=== PATIENT | male | born 1950 | race Caucasian/White ===

== ENCOUNTER 2016-11-29 08:30 | Outpatient (CLI) | payer MEDICARE, BC ==
[~2016-11-29] VITALS: Ht 175.3 cm; Wt 85.9 kg
--- NOTE | ~2016-11-29 | PRO ---
PATIENT:ELDER PARKER MEDICAL RECORD: [id number] : 48 LOCATION:D.CAT ADMISSION DATE: 11/29/16 PROCEDURE PERFORMED BY: PEBBLES HILL MD PROCEDURES: 1. PTCA and stent of the LAD/diagonal. 2. Left heart catheterization. 3. Selective coronary angiography. 4. Left ventriculogram. 5. Vein graft angiography. 6. MARTINEZ angiography. INDICATIONS: Angina, coronary disease. PROCEDURE IN DETAIL: After informed consent was obtained and after detailed Explanation of risks, benefits as well as alternative therapies, the patient Elected to proceed with angiogram and angioplasty. The right femoral area was Prepped and draped in normal sterile fashion. The right femoral artery was Cannulated via modified Seldinger technique with placement of 6-Hebrew sheath. All catheters exchanged through this sheath. FINDINGS: Left ventriculogram was performed in standard 30-degree BURCH view, reveals good cardiac wall motion throughout all segments. Overall ejection fraction estimated 55-60%. Selective coronary angiography: 1. Left main showed no significant angiographic disease. 2. Left circumflex has previously placed stents, these are widely patent. No disease otherwise throughout the circumflex or its branches. 3. Left anterior descending artery has a total occlusion in the proximal vessel. However, prior to this there is a LAD/diagonal that has previously placed stents. There is 90% in-stent restenosis. 4. MARTINEZ to the LAD is widely patent. The distal LAD is widely patent. 5. The vein graft to the RCA is widely patent. Distal RCA is widely patent. PTCA STENT OF THE LAD/diagonal: The stent used is a 2.5 x 12 millimeter [place] taken to 23 atmospheres. Resulting in 0% residual stenosis. OVERALL IMPRESSION: Successful PTCA and stenting of the LAD/diagonal going from 90% in-stent restenosis to 0% residual stenosis. PEBBLES HILL MD CC: [id number] DICTATION DATE: 11/29/16 1254 AIRPLANE INSPECTOR: TC 11/30/16 1254 DEP CLI 11/29/16 [facility] [address] [id number]
--- NOTE | ~2016-11-29 | HEMODYNAMI ---
PATIENT:ELDER PARKER MEDICAL RECORD: [id number] : 48 LOCATION:DZHENG ADMISSION DATE: 11/29/16 Generatedon:11/29/201612:37 Patient name: ELDER PARKER Patient #: [id number] : 1950 Date of study: 11/29/2016 Page: Of Hemodynamic Procedure Report Patient Data Patient Demographics Procedure consent was obtained First Name: ELDER Gender: Male Last Name: ELENA : 1950 Middle Initial: A Age: 66 year(s) Patient #: [id number] Race: SSN: [id number] Additional ID: [id number] Contact details [address]: [address] [place] [address] State: [place] City: [place] Zip code: [address] Past Medical History Allergies Allergen Reaction Date Comments Reported Shellfish 10/17/2014 Other allergy 05/29/2016 Shrimp Shellfish 11/29/2016 Other allergy 11/29/2016 Lipitor Admission Admission Data Admission Date: 11/29/2016 Admission Time: 8:30 Lab Results Lab Result Date: 11/29/2016 Lab Result Time: 0:00 Biochemistry Name Units Result Min Max Creatinine mg/dl 1.1 --(--*-)-- 0.6 1.3 CBC Name Units Result Min Max Hemoglobin g/dl 15.3 --(-*--)-- 13.5 17.5 Procedure Procedure Types Cath Procedure Diagnostic Procedure LHC LHC w/Coronaries w/Grafts PCI Procedure Coronary Stent Initial Miscellaneous Procedures Moderate Sedation up to 15 minutes Procedure Description Procedure Date Procedure Date: 11/29/2016 Procedure Start Time: 12:19 Procedure End Time: 12:37 Procedure Staff Name Function Bc Hanna MD Performing Physician Casa Soni RT Scrub Russ Stephens RN Nurse Lacie Kincaid RT Monitor Procedure Data Cath Procedure Fluoroscopy Diagnostic fluoroscopy Total fluoroscopy Time: 282 time: 282 min min Diagnostic fluoroscopy Total fluoroscopy dose: 2.9 dose: 2.9 mGy mGy Contrast Material Contrast Material Type Amount (ml) Isovue 300 78 Entry Location Entry Primary Successful Side Size Upsize Upsize Entry Closure Succes sful Closure Location (Fr) 1 (Fr) 2 (Fr) Remarks Device Remarks Femoral Right 5 Fr 6 Fr Exoseal artery Short Estimated blood loss: 10 ml Diagnostic catheters Device Type Used For End Catheter Placement Cordis 5Fr Pigtail LV Angiography Catheter (MP) Cordis 5Fr JL 4.0 Left Coronary Catheter (MP) Angiography Cordis 5Fr 3DRC Catheter Internal mammary (MP) arteriography Diagnostic Infinity 5Fr SVG Angiography AR 2 MOD catheter Procedure Complications No complications Procedure Medications Medication Administration Route Dosage Oxygen NC 2 l/min Benadryl I.V. 50 mg Heparin Flush Bag added to field 2 bags (1000units/500ml NS) 0.9% NaCl I.V. 100 ml/hr Fentanyl I.V. 50 mcg Versed I.V. 1 mg Fentanyl I.V. 50 mcg Versed I.V. 1 mg Fentanyl I.V. 25 mcg Heparin Bolus I.V. 4000 units Hemodynamics Rest HGB: 15.3 (g/dl) Heart Rate: 64 (bpm) Snapshots Pre Cath Intra NCS Post Cath Vital Signs Time Heart Resp SPO2 NIBP (mmHg) Rhythm Pain Sedation Rate (ipm) (%) Status Level (bpm) 11:54:43 65 19 96 142/73(103) NSR 0 (11) 10(A) , No pain 11:59:00 66 19 95 133/73(120) NSR 0 (11) 10(A) , No pain 12:03:13 65 20 96 139/78(113) NSR 0 (11) 10(A) , No pain 12:07:31 68 17 96 126/73(111) NSR 0 (11) 10(A) , No pain 12:11:41 65 18 94 129/76(90) NSR 0 (11) 10(A) , No pain 12:15:55 68 16 97 128/69(105) NSR 0 (11) 10(A) , No pain 12:20:05 64 16 92 105/79(94) NSR 0 (11) 9(A) , No pain 12:24:11 68 17 92 117/68(107) NSR 0 (11) 9(A) , No pain 12:28:23 67 18 88 136/66(102) NSR 0 (11) 9(A) , No pain 12:32:39 70 17 95 124/66(104) NSR 0 (11) 9(A) , No pain 12:36:49 69 17 92 123/73(100) NSR 0 (11) 9(A) , No pain Medications Time Medication Route Dose Verified Delivered Reason Notes Effectiveness by by 11:54:07 Oxygen NC 2 Russ Russ Per physician l/min Angelo Stephens RN RN 11:54:14 Benadryl I.V. 50 mg Russ Russ Per physician Angelo Stephens RN RN 11:54:25 Heparin Flush added 2 Russ Russ used for Bag to bags Angelo Stephens RN procedure (1000units/500ml field RN NS) 11:54:35 0.9% NaCl I.V. 100 Russ Russ Per physician ml/hr Angelo Stephens RN RN 12:16:54 Fentanyl I.V. 50 Russ Russ for sedation mcg Angelo Stephens RN RN 12:17:01 Versed I.V. 1 mg Russ Russ for sedation Angelo Stephens RN RN 12:21:03 Fentanyl I.V. 50 Russ Russ for sedation mcg Angelo Stephens RN RN 12:21:08 Versed I.V. 1 mg Russ Russ for sedation Angelo Stephens RN RN 12:25:50 Fentanyl I.V. 25 Russ Russ for sedation mcg Angelo Stephens RN RN 12:26:01 Heparin Bolus I.V. 4000 Russ Russ for units Angelo Stephens RN anticoagulation marine equipment engineer Log Time Note 11:30:39 Russ Stephens RN sent for patient. Start room use. 11:37:40 Time tracking: Regular hours 11:37:44 Plan of Care:Hemodynamics will remain stable., Cardiac rhythm will remain stable., Comfort level will be maintained., Respiratory function will remain adequate., Patient/ family verbilizes understanding of procedure., Procedure tolerated without complication., Recovers from procedure without complications.. 11:43:33 Patient received from Pre/Post Procedure Room to [facility] 2 Alert and oriented. Tansferred to table in Supine position. 11:43:34 Warm blankets applied, and gil hugger turned on for patient comfort. 11:43:35 Correct patient and procedure confirmed by team. 11:43:36 Signed procedure consent form obtained from patient. 11:43:37 ECG and BP/O2 sat monitors applied to patient. 11:43:38 Full Disclosure recording started 11:53:35 Vital chart was started 11:53:39 Rhythm: sinus rhythm 11:53:49 H&P Date Dictated: 11/26/2016 Within 30 days and on chart., H&P Addendum completed by physician on day of procedure. (MUST COMPLETE FOR ALL OUTPATIENTS). 11:53:50 Pre-procedure instructions explained to patient. 11:53:50 Pre-op teaching completed and patient verbalized understanding. 11:53:51 Family in waiting room. 11:53:54 Patient NPO since Midnight. 11:53:59 Patient allergic to Shellfish 11:54:07 Oxygen 2 l/min NC was administered by Russ Stephens RN; Per physician; 11:54:11 Patient allergic to Other allergyLipitor 11:54:13 Is the patient allergic to Iodine/contrast media? Yes. 11:54:14 Benadryl 50 mg I.V. was administered by Russ Stephens RN; Per physician; 11:54:15 Was the patient premedicated? No 11:54:25 Heparin Flush Bag (1000units/500ml NS) 2 bags added to field was administered by Russ Stephens RN; used for procedure; 11:54:35 0.9% NaCl 100 ml/hr I.V. was administered by Russ Stephens RN; Per physician; 11:55:48 Is patient on blood thinner?No 11:56:02 Patient diabetic? No. 11:56:17 Previous problem with sedation/anesthesia? No ? 11:56:21 Snore? Yes 11:56:24 Sleep apnea? Yes 11:56:25 Deviated septum? No 11:56:26 Opens mouth fully? Yes 11:56:27 Sticks out tongue? Yes 11:56:32 Airway obstruction? No ? 11:56:36 Dentures? No ? 11:56:41 Pre procedure: right dorsailis pedis pulse 2+ Normal; easily identifiable; not easily obliterated 11:56:45 Patient pain scale 0/10 ?. 11:56:57 IV patent on arrival in left hand with 0.9% NaCl at [facility] 11:57:09 Lab results completed and on chart. 12:00:37 Lab Result : Creatinine 1.1 mg/dl 12:00:37 Lab Result : Hemoglobin 15.3 g/dl 12:00:44 Right groin area was prepped with chlora-prep and draped in sterile fashion 12:00:45 Alarms reviewed by R. N. 12:00:45 Sharps counted by scrub and verified by R.N. 12:00:48 Use device set Femoral Dx 12:00:49 Acist Syringe opened to sterile field. 12:00:50 Bag Decanter opened to sterile field. 12:00:50 Medline Cath Pack opened to sterile field. 12:00:51 Terumo 5Fr Gurley Sheath opened to sterile field. 12:00:51 St Vini 260cm J .035 wire opened to sterile field. 12:00:53 Acist Hand Control opened to sterile field. 12:00:53 Acist Manifold opened to sterile field. 12:00:54 Diagnostic Infinity 5Fr Multipack catheter opened to sterile field. 12:00:55 Tegaderm 4 x 4 opened to sterile field. 12:02:36 Baseline sample Acquired. 12:08:36 Zero performed for pressure channel P1 12:14:20 Final Timeout: patient, procedure, and site verified with staff and physician. All members of the team are in agreement. 12:14:22 Right groin site verified by team. 12:14:24 Physical assessment completed. ASA score P 2 - A patient with mild systemic disease as per Bc Hanna MD. 12:14:27 Sedation plan: IV Moderate Sedation Versed, Fentanyl 12:16:54 Fentanyl 50 mcg I.V. was administered by Russ Stephens RN; for sedation; 12:17:01 Versed 1 mg I.V. was administered by Russ Stephens RN; for sedation; 12:18:50 Procedure started. 12:19:08 Local anesthetic to right femoral artery with Lidocaine 2% by Bc Hanna MD.INITIAL ACCESS ONLY 12:19:54 A 5 Fr sheath was inserted into the Right Femoral artery 12:21:03 Fentanyl 50 mcg I.V. was administered by Russ Stephens RN; for sedation; 12:21:08 Versed 1 mg I.V. was administered by Russ Stephens RN; for sedation; 12:21:08 A Cordis 5Fr Pigtail Catheter (MP) was advanced over the wire and used for LV Angiography. 12::25 LV gram done using BURCH 12:21:30 EF : 60 % 12::34 Injector settings: Ml/sec: 10, Volume: 20, 12:21:36 Catheter removed. 12:22:12 A Cordis 5Fr JL 4.0 Catheter (MP) was advanced over the wire and used for Left Coronary Angiography. 12::25 Catheter removed. 12::47 Cordis 6FR XBLAD 3.5 guide catheter opened to sterile field. 12::48 Terumo 6Fr Gurley Sheath opened to sterile field. 12::49 MyTinksixCompak Inflation Kit opened to sterile field. 12::49 Adams Vettroisper J 300cm 0.014 guide wire opened to sterile field. 12:23:29 A Cordis 5Fr 3DRC Catheter (MP) was advanced over the wire and used for Internal mammary arteriography.To LAD 12:24:58 Catheter removed. 12:25:19 A Diagnostic Infinity 5Fr AR 2 MOD catheter was advanced over the wire and used for SVG Angiography.to RCA 12:25:20 Catheter removed. 12::29 Sheath upsized to a 6 Fr Short. 12::50 Fentanyl 25 mcg I.V. was administered by Russ Stephens RN; for sedation; 12:26:01 Heparin Bolus 4000 units I.V. was administered by Russ Stephens RN; for anticoagulation; 12::22 6 Fr XBLAD 3.5 guide catheter was inserted over the wire 12:27:04 Whisper wire advanced. 12::43 Inflation Number: 1 A Christian OTW 2.5 x 12 stent was prepped and advanced across the Prox LAD. The stent was deployed at 23 ELIAS for 0:09 (min:sec). 12::09 Inflation number: 2 The stent balloon was then re-inflated across the Prox LAD to 23 ELIAS for 0:12 (min:sec). 12:29:06 Inflation number: 3 The stent balloon was then re-inflated across the Prox LAD to 1 ELIAS for 0:35 (min:sec). 12::41 Stent catheter was removed intact over wire. 12:29:42 Wire removed. 12:29:42 Guide catheter removed. 12:29:48 Sheath removed intact; hemostasis achieved with Exoseal to the Right Femoral artery. 12:29:52 Procedure ended.(Physican Out) 12:30:05 Cordis 6Fr Exoseal opened to sterile field. 12:30:11 Fluoroscopy time 282.00 minutes. 12:30:15 Fluoroscopy dose: 2.9 mGy 12:30:15 Flurop Dose total: 2.9 12:30:20 Contrast amount:Isovue 300 78ml. 12:30:21 Sharps counted by scrub and verified by R.N. 12:30:23 Insertion/operative site no bleeding no hematoma. 12:30:26 Post-op/insertion site Right Femoral artery dressed using a 4 x 4 and Tegaderm. 12:30:30 Post right femoral artery:stable, clean and dry 12:30:32 Post Procedure Pulses reassessed and unchanged 12:30:35 Post-procedure physical assessment completed. ASA score P 2 - A patient with mild systemic disease as per Bc Hanna MD. 12:30:38 Post procedure rhythm: unchanged. 12:30:40 Estimated blood loss: 10 ml 12:30:41 Post procedure instruction explained to patient.Patient verbalizes understanding. 12:30:42 Patient needs reinforcement of post procedure teaching. 12:31:05 Procedure type changed to Cath procedure, Diagnostic procedure, LHC, LHC w/Coronaries w/Grafts, PCI procedure, Coronary Stent Initial, Miscellaneous Procedures, Moderate Sedation up to 15 minutes 12::43 Procedure and supply charges have been captured, reviewed, submitted and are correct. 12:31:47 Procedure Complication : No complications 12:31:50 See physician's report for complete and final results. 12:36:58 Vital chart was stopped 12:37:03 Report given to Pre/Post Procedure Room. 12:37:07 Patient transfered to Pre/Post Procedure Room with Stretcher. 12:37:16 Procedure ended. 12:37:16 Full Disclosure recording stopped 12:37:20 End room use (Document Last) Intervention Summary Intervention Notes Time ActionType Lesion and Equipment Action# Pressure Duration Attributes Used 12:27:43 Place stent Prox LAD Christian OTW 1 23 00:09 2.5 x 12 stent 12:28:09 Reinflate Prox LAD Ponce OTW 2 23 00:12 stent 2.5 x 12 balloon stent 12:29:06 Reinflate Prox LAD Christian OTW 3 1 00:35 stent 2.5 x 12 balloon stent Device Usage Item Name Manufacture Quantity Catalog Hospital Part Current Minimal Lot# / Number Charge Number Stock Stock Serial# Code Acist Acist 1 [id number] 875228 849487 258322 20 [employer] Bag Microtek 1 2002S 027279 58606 176056 5 Madrone. Medline Cardinal 1 [id number] 864710 16874 614680 5 Cath Pack Health Terumo 5Fr Terumo 1 [id number] 957648 866112 367442 [address] Vini St Vini 1 734049 884617 452850 192500 30 260cm J .035 wire Acist Hand Acist 1 87292 370143 313694 722693 5 ON-S Segurança Online Acist Acist 1 16522 945650 762135 518795 5 [employer] Diagnostic Cardinal 1 [id number] 200525 56950 464801 30 Puddle 5Fr Multipack catheter Tegaderm 4 3M 1 1626W 392410 232430 889802 5 x 4 Cordis 5Fr Cardinal 1 693599 5 Pigtail Health Catheter (MP) Cordis 5Fr Cardinal 1 776645 5 JL 4.0 Health Catheter (MP) Cordis 6FR Cardinal 1 [id number] 679557 918893 963253 10 XBLAD 3.5 Health guide catheter Terumo 6Fr Terumo 1 [id number] 561305 123212 019822 40 Gurley Sheath Merit Merit 1 [id number] 133958 641347 832220 15 BasixCompak Medical Inflation Kit Adams Adams 1 [id number] 122434 255877 794154 5 Whisper J Vascular 300cm 0.014 guide wire Cordis 5Fr Cardinal 1 736224 5 3DRC Health Catheter (MP) Diagnostic Cardinal 1 [id number] 004559 887434 050216 20 ReliOn Health 5Fr AR 2 MOD catheter Ponce OTW Medtronic 1 [id number] 706070 34272 747638 5 [id number] 2.5 x 12 stent Cordis 6Fr Cardinal 1 EX600 225432 487729 764828 10 Exoseal Health Signature Audit [place] Stage Time Signature Unsigned Intra-Procedure 11/29/2016 Lacie 12:37:31 PM Counts RT(R) Signatures Monitor : Lacie Signature : Counts RT Date : Time : [address] [place] [address]
[~2016-11-29 08:30] MED LIST: BAYER CHEWABLE81 MG PO; BYSTOLIC5 MG PO; EFFIENT10 MG PO; FISH OIL 1,0001 CA1 PO; FLAXSEED OIL1000 MG; IMDUR60 MG PO; MULTIPLE VITAMI1 TA1; NIASPAN500 MG PO; NITROSTAT0.4 MG SL; VITAMIN E400 UNI2
[2016-11-29 09:24] VITALS: BP 137/72; Ht 175.3 cm; Wt 85.9 kg
[2016-11-29 10:22] LABS: BASOPHILS 0.4 % (0-2); EOSINOPHILS 2.7 % (0-7); HEMATOCRIT 46.5 % (42.0-54.0); HEMOGLOBIN 15.3 g/dL (13.5-17.5); IMMATURE GRANULOCYTES 1.5 % (0-5); LYMPHOCYTES 17.6 % (15-50); MCH 29.8 pg (26.0-34.0); MCHC 32.9 g/dL (31.0-37.0); MCV 90.5 fL (80.0-100.0); MEAN PLATELET VOLUME 9.8 fL (7.4-10.4); MONOCYTES 7.6 % (2-11); NEUTROPHILS 70.2 % (40-80); RBC 5.14 10x6/uL (4.20-6.10); RDW 13.7 % (11.5-14.5); WBC 8.5 10x3/uL (4.8-10.8)
[2016-11-29 10:25] LABS: PLATELET COUNT 221 10x3/uL (130-400)
[2016-11-29 10:37] LABS: ANION GAP 11.4 mmol/L (8-16); CALCIUM 8.8 mg/dL (8.5-10.1); CARBON DIOXIDE 28.9 mmol/L (21.0-32.0); CREATININE - SERUM 1.1 mg/dL (0.6-1.3); POTASSIUM - SERUM 4.3 mmol/L (3.5-5.1)
--- NOTE | 2016-11-29 13:06 | NUR ---
1245 RECEIVED PT FROM CODING COMPLIANCE SPECIALIST, PT IS SLEEPING, AWAKENS EASILY TO VERBAL STIMULI. DENIES ANY C/O AT THIS TIME. SINUS RHYTHM, RATE 70. BP 127/63. RR IS EVEN AND UNLABORED, ON O2 AT 2 LPM VIA NC. RIGHT GROIN DRESSING IS CDI, NO BLEEDING OR HEMATOMA NOTED. AREA IS SOFT AND NONTENDER. PEDAL PULSES PALPABLE. INSTRUCTED PT TO KEEP HEAD TO PILLOW AND RIGHT LEG STRAIGHT, PT VERBALIZES UNDERSTANDING. CALL LIGHT IN REACH. 1300 PT DENIES ANY C/O. DRESSING TO RIGHT GROIN IS CDI, NO BLEEDING OR HEMATOMA NOTED. PEDAL PULSES PALPABLE. FAMILY AT BEDSIDE.
--- NOTE | 2016-11-29 13:30 | NUR ---
NO CHANGES NOTED TO RIGHT GROIN, AT SIDE, PT DENIES CHEST PAIN
--- NOTE | 2016-11-29 17:00 | NUR ---
D'C HOME WITH DRIVING
== END 2016-11-29 17:00 | disposition home or self-care (01) ==
LOC: D.CATH 08:30
PROVIDERS: Internal Medicine Interventional Cardiology
DX: I25.119 Atherosclerotic heart disease of native coronary artery with unspecified angina pectoris (principal); T82.855A Stenosis of coronary artery stent, initial encounter; Z95.1 Presence of aortocoronary bypass graft; Z01.812 Encounter for preprocedural laboratory examination

== ENCOUNTER 2017-06-19 11:01 | Day surgery (SDC) | payer MEDICARE, BC ==
[~2017-06-19] VITALS: Ht 177.8 cm; Wt 83.9 kg
--- NOTE | ~2017-06-19 | OP ---
PATIENT NAME: ELDER PARKER MEDICAL RECORD: [id number] :48 LOCATION:[facility] ADMISSION DATE: SURGEON: SHANTAL OLIVARES, EUGENE BOWDEN DATE OF OPERATION: 06/19/2017 PREOPERATIVE DIAGNOSIS: SLAP lesion with impingement syndrome. POSTOPERATIVE DIAGNOSES: 1. SLAP lesion. 2. Impingement syndrome. 3. Severe biceps tendonitis. 4. Rotator cuff tear. 5. Acromioclavicular arthropathy. PROCEDURES: Arthroscopic rotator cuff repair, arthroscopic biceps tenodesis, arthroscopic subacromial decompression, acromioplasty and bursectomy, arthroscopic distal clavicle excision. SURGEON: Eugene Murguia MD ANESTHESIA: General. INTRAOPERATIVE COMPLICATIONS: None. SUMMARY OF PATHOLOGIC FINDINGS: The patient had a labral tear; however, because of the severe biceps tendinitis, the decision was made to do a biceps tenodesis with labral debridement given the patient's age and the concurrent rotator cuff tearing. OPERATIVE SUMMARY IN DETAIL: After obtaining the appropriate preoperative orthopedic surgery consent as well as anesthetic consultation, evaluation and clearance, the patient was brought to the operating room and placed on the operating table in supine position. After general laryngeal mask was administered, the patient was placed in a left lateral decubitus position. All pressure points were well padded to include down leg peroneal pad as well as axillary roll. The patient was held firmly to the operative table using the vacuum pack suction system. At this point, the patient's right upper extremity was prepped and draped in routine sterile fashion. The arm was held in the Arthrex traction boom at 30 degrees of forward flexion, 30 degrees of abduction, and 10 pounds of traction laterally. Arthroscopy was established in the glenohumeral joint from a posterior portal. Anterior portal was established in the anterior safe interval. Diagnostic arthroscopy showed the patient had severe biceps tendinitis along with labral detachment of the superior aspect of the glenoid. The patient did have a Bill variant. Resector was utilized to debride the superior aspect of the glenoid and debride the labral tearing. Having completed this, attention was turned to the rotator cuff. The arthroscopic nitin was taken and utilized to decorticate the articular aspect of the supraspinatus tendinous footprint and attention was turned to the subacromial space. While on subacromial space, [place] tissue ablation system was utilized to denude the acromion of all undersurface tissue and release the coracoacromial ligament, which was very excoriated. A 5-0 barrel bur was then used to perform acromioplasty at the level of acromioclavicular joint. Through a separate arthroscopic anterior portal, a 5-0 barrel bur was utilized to perform a distal clavicle excision - 1 cm. Having completed this, the biceps tendon was isolated. Several loops of #2 FiberTape was threaded through the OPERATIVE REPORT [id number] ELENAELDER A biceps tendon at the proximal aspect of the bicipital groove and then the pin was directed into the bicipital groove followed by a 7-mm reamer and then 8 mm biceps tenotomy interference screw from Arthrex was utilized to complete the biceps tenodesis, residual biceps tendon stump was debrided. Lastly, attention was turned to the rotator cuff. The rotator cuff tear was initially fixed anteriorly with the tails from the biceps tenodesis. These were passed and duplicated and then pulled laterally and were held in place using a 4.75 SwiveLock from Arthrex. These tails likewise were then passed through the rotator cuff and anchored with a 5.5 SwiveLock and again this was repeated to the posterior aspect of the rotator cuff tear. This resulted in excellent rotator cuff repair and lastly, a small leaflet was also sutured with FiberWire and anchored laterally with a final 4.75 SwiveLock from Arthrex. At this point, the wound was copiously irrigated and closed in usual fashion with 4-0 Prolene. Sterile dressings were applied. The patient was awakened, taken to recovery in stable condition. All final needle and sponge counts were correct. TRANSINT:[id number] Voice Confirmation ID: [id number] DOCUMENT ID: [id number] SHANTAL OLIVARES, EUGENE BOWDEN at 1213 CC: [id number] DICTATION DATE: 06/19/17 1517 BIODIESEL DIVISION MANAGER: 06/19/17 1658 [facility] 06/19/17 [facility] [address] [place] [address]
[2017-06-19 11:45] LABS: HEMATOCRIT 45.2 % (42.0-54.0); MCH 29.4 pg (26.0-34.0); MCHC 33.2 g/dL (31.0-37.0); MCV 88.6 fL (80.0-100.0); MEAN PLATELET VOLUME 9.5 fL (7.4-10.4); RBC 5.1 10x6/uL (4.20-6.10); RDW 13.8 % (11.5-14.5); WBC 8.6 10x3/uL (4.8-10.8)
[2017-06-19 12:29] VITALS: BP 136/79; Ht 177.8 cm; Wt 83.9 kg
[2017-06-19] MEDS ORDERED: DILAUDID2 MG PO (15:06)
== END 2017-06-19 17:00 | disposition home or self-care (01) ==
LOC: D.OPS 11:01 → D.PAN 13:15 → D.OPS 13:15
PROVIDERS: Anesthesiology
DX: M75.41 Impingement syndrome of right shoulder (principal); S43.431A Superior glenoid labrum lesion of right shoulder, initial encounter; M75.21 Bicipital tendinitis, right shoulder; M75.111 Incomplete rotator cuff tear or rupture of right shoulder, not specified as traumatic; M13.811 Other specified arthritis, right shoulder; X58.XXXA Exposure to other specified factors, initial encounter; Z01.812 Encounter for preprocedural laboratory examination

== ENCOUNTER → 2017-09-09 07:37 | Outpatient (CLI) | payer MEDICARE, BC ==
[~2017-09-09] VITALS: Ht 177.8 cm; Wt 84.1 kg
--- NOTE | ~2017-09-09 | HP ---
PATIENT: ELDER TEJEDA MEDICAL RECORD: [id number] ACCOUNT: [id number] LOCATION:[facility] : 48 ADMISSION DATE: 09/09/17 HISTORY AND PHYSICAL EXAMINATION DIAGNOSES: 1. Angina, unstable. 2. Coronary artery disease. 3. Status post coronary bypass graft surgery. 4. Status post multivessel PTCA and stent. 5. Hypertension. 6. Hyperlipidemia. HISTORY OF PRESENT ILLNESS: Mr. Tejeda presents with increasing anginal symptomatology in an unstable fashion. He does have a history of coronary disease, previous coronary bypass graft surgery, multivessel PTCA and stent as well. PHYSICAL EXAMINATION: GENERAL APPEARANCE: Well-nourished, well-developed, appears stated age. Level of distress, comfortable. PSYCHIATRIC: Mental status, alert, normal affect. Orientation, oriented to time, place and person. EYES: Lids and conjunctiva, noninjected. No discharge, no pallor. ENT: Lips, teeth, gums, normal dentition. Oropharynx, no cyanosis, no pallor. NECK: Carotid arteries, bilateral normal upstroke, no bruits, no thrills. JUGULAR VEINS: No jugular venous pressure or distention. CERVICAL LYMPH NODES: Nontender, nonenlarged. THYROID: Not enlarged. Nontender. No nodules. LUNGS: Respiratory effort, unlabored. CHEST: Normal curvature. No thoracic deformity. No chest wall tenderness. Percussion, resonant. Auscultation, clear. No wheezes, no rales, no rhonchi. CARDIOVASCULAR: Precordial exam, nondisplaced. No heaves or pericardial thrills. Rate and rhythm, regular. Heart sounds, normal S1, normal S2. No S3, no gallop, no rub. Systolic murmur, not heard. Diastolic murmur, not heard. EXTREMITIES: No cyanosis, no edema. Peripheral pulses, full and equal in all extremities, except as noted. No bruits appreciated. ABDOMEN: Soft, nondistended. Normal aorta. No bruit. Nontender. No masses. Liver, nontender, no hepatomegaly. Spleen, nontender, no splenomegaly. MUSCULOSKELETAL: No joint tenderness. No joint swelling. No erythema. NEUROLOGICAL: Normal gait, normal strength, normal tone. SKIN: Warm and dry. REVIEW OF SYSTEMS: The patient reports easy bruising but reports no swollen glands. The patient reports no fever, no night sweats, no significant weight gain, no significant weight loss. No significant exercise tolerance. The patient reports no dry eyes, no irritation, no vision change. Patient reports no difficulty hearing and no ear pain. Patient reports no frequent nose bleeds or nose and sinus problems. Patient reports on arm pain on exertion. No shortness of breath while lying down. No history of heart murmur. Patient reports no cough, no wheezing or coughing up blood. Patient reports no abdominal pain, no vomiting. Normal appetite. No diarrhea and not vomiting blood. No nausea and no constipation. Patient reports no incontinence. No difficulty urinating. No hematuria. No increased frequency. Patient reports no muscle aches. No weakness, no arthralgias, no back pain. No swelling of the HISTORY AND PHYSICAL [id number] ELDER TEJEDA extremities. Patient reports no abnormal mole, no jaundice, no rashes. Reports no loss of consciousness. No weakness and no numbness. No seizures, dizziness, or headaches. The patient reports no depression, no sleep disturbance, feeling safe in a relationship and no alcohol abuse. Patient reports on fatigue. Reports no runny nose or sinus pressure. No itching, no hives, and no frequent sneezing. OVERALL IMPRESSION: Unstable angina in a patient with a past history of coronary artery disease, most likely he has recurrent hemodynamically significant disease. We will proceed with coronary angiography. Further care depends upon the findings of the angiography. TRANSINT:[id number] Voice Confirmation ID: [id number] DOCUMENT ID: [id number] PEBBLES HILL MD at 1056 CC: [id number] DICTATION DATE: 09/09/1742 PEER FINANCIAL COUNSELOR: 09/09/17 0939 DEP CLI 09/09/17 [place] [id number] [place] [id number]
--- NOTE | ~2017-09-09 | OP ---
PATIENT NAME: ELDER PARKER MEDICAL RECORD: [id number] :48 LOCATION:D.CAT ADMISSION DATE: SURGEON: PEBBLES HILL MD DATE OF OPERATION: 09/09/2017 PROCEDURES: 1. Laser atherectomy LAD. 2. PTCA, LAD. 3. Left heart catheterization. 4. Selective coronary angiography. 5. Vein graft angiography. 6. MARTINEZ angiography. 7. Left ventriculogram. INDICATION: Angina and coronary artery disease. PROCEDURE IN DETAIL: After informed consent was obtained and after a detailed description of risks, benefits as well as alternative therapies, the patient elected to proceed with angiogram and angioplasty. The right femoral area was prepped and draped in normal sterile fashion. Right femoral artery was cannulated via modified Seldinger technique with placement of 6-Sami sheath. All catheters exchanged through this sheath. FINDINGS: The left ventriculogram was performed in standard 30-degree BURCH view, reveals good cardiac wall motion throughout all segments. Overall ejection fraction estimated 60%. SELECTIVE CORONARY ANGIOGRAPHY: 1. Left main is with no significant angiographic disease. 2. Left anterior descending is stented proximally leading to a non-grafted diagonal. There is 90% in-stent restenosis. LAD is then totally occluded. 3. MARTINEZ to the distal LAD is widely patent. Distal LAD is widely patent. 4. The left circumflex has moderate irregularities, but no flow-limiting stenosis. 5. Right coronary artery is totally occluded. 6. Vein graft to the right coronary artery is widely patent, previously placed stents are widely patent. LASER ATHERECTOMY: PTCA of the LAD diagonal: The balloon used was a 2.5 balloon. Multiple inflations were made to 17 atmospheres. Multiple laser atherectomy runs were made at 40 and 80 fluence. Result was 0% residual stenosis. OVERALL IMPRESSION: Successful PTCA, laser atherectomy of the LAD diagonal going from 90% initial stenosis to 0% residual stenosis. TRANSINT:[id number] Voice Confirmation ID: [id number] DOCUMENT ID: [id number] OPERATIVE REPORT [id number] ELDER PARKER PEBBLES HILL MD at 1056 CC: [id number] DICTATION DATE: 09/09/17 0948 DRILLER BRAKE LINING: 09/09/17 1234 DEP CLI 09/09/17 [facility] [address] [facility] [place] [address]
--- NOTE | ~2017-09-09 | HEMODYNAMI ---
PATIENT:ELDER PARKER MEDICAL RECORD: [id number] : 48 LOCATION:DZHENG ADMISSION DATE: 09/09/17 Generatedon:09/09/20179:51 Patient name: ELDER PARKER Patient #: [id number] : 1950 Date of study: 09/09/2017 Page: Of Hemodynamic Procedure Report Patient Data Patient Demographics Procedure consent was obtained First Name: ELDER Gender: Male Last Name: ELENA : 1950 Middle Initial: A Age: 67 year(s) Patient #: [id number] Race: SSN: [id number] Additional ID: [id number] Contact details [address]: [address] [place] [address] State: [place] City: [place] Zip code: [address] Past Medical History Allergies Allergen Reaction Date Comments Reported Shellfish 10/17/2014 Other allergy 05/29/2016 Shrimp Shellfish 11/29/2016 Other allergy 11/29/2016 Lipitor Other allergy 09/09/2017 SHRIMP,LIPITOR Admission Admission Data Admission Date: 09/09/2017 Admission Time: 7:37 Lab Results Lab Result Date: 09/09/2017 Lab Result Time: 0:00 Biochemistry Name Units Result Min Max BUN mg/dl 12 --(-*--)-- 7 18 Creatinine mg/dl 1 --(--*-)-- 0.6 1.3 CBC Name Units Result Min Max Hemoglobin g/dl 15.4 --(-*--)-- 13.5 17.5 Procedure Procedure Types Cath Procedure Diagnostic Procedure LHC LHC w/Coronaries w/Grafts Sedation Charges Moderate Sedation up to 30 minutes PCI Procedure Coronary Atherectomy Atherectomy w/PTCA Coronary Initial Procedure Description Procedure Date Procedure Date: 09/09/2017 Procedure Start Time: 9:21 Procedure End Time: 9:51 Procedure Staff Name Function cB Hanna MD Performing Physician Javy Medina RN Nurse Sharita Rubalcava RT Monitor Redd Quispe RT Scrub Procedure Data Cath Procedure Fluoroscopy Diagnostic fluoroscopy Total fluoroscopy Time: 0 time: 0 min min Diagnostic fluoroscopy Total fluoroscopy dose: 999 dose: 999 mGy mGy Contrast Material Contrast Material Type Amount (ml) Isovue 300 110 Entry Location Entry Primary Successful Side Size Upsize Upsize Entry Closure Succes sful Closure Location (Fr) 1 (Fr) 2 (Fr) Remarks Device Remarks Femoral Right 5 Fr 6 Fr Exoseal artery Short Estimated blood loss: 10 ml Diagnostic catheters Device Type Used For End Catheter Placement MULTIPACK Pigtail 5 Fr Procedure catheter MULTIPACK JL 4.0 5Fr Procedure catheter MULTIPACK 3DRC 5Fr Procedure catheter Procedure Complications No complications Procedure Medications Medication Administration Route Dosage Oxygen NC 2 l/min Lidocaine 2% added to field 20 Heparin Flush Bag added to field 2 bags (1000units/500ml NS) 0.9% NaCl I.V. 100 ml/hr Versed I.V. 1 mg Versed I.V. 1 mg Fentanyl I.V. 50 mcg Fentanyl I.V. 50 mcg Versed I.V. 1 mg Fentanyl I.V. 50 mcg Heparin Bolus I.V. 4000 units Versed I.V. 1 mg Fentanyl I.V. 50 mcg Hemodynamics Rest HGB: 15.4 (g/dl) Heart Rate: 72 (bpm) Snapshots Pre Cath Intra NCS Post Cath Vital Signs Time Heart Resp SPO2 etCO2 NIBP (mmHg) Rhythm Pain Sedation Rate (ipm) (%) (mmHg) Status Level (bpm) 9:06:48 73 22 95 0 134/76(114) NSR 0 (11) 10(A) , No pain 9:10:57 73 15 95 0 146/80(101) NSR 0 (11) 10(A) , No pain 9:15:12 75 15 95 31.8 139/77(94) NSR 0 (11) 10(A) , No pain 9:19:26 73 16 94 34 135/72(120) NSR 0 (11) 9(A) , No pain 9:23:35 72 20 94 32.5 131/76(110) NSR 0 (11) 9(A) , No pain 9:27:43 75 16 96 0 120/78(94) NSR 0 (11) 9(A) , No pain 9:31:47 75 15 95 37.1 129/78(98) NSR 0 (11) 9(A) , No pain 9:35:55 75 14 96 36.3 133/77(108) NSR 0 (11) 9(A) , No pain 9:40:03 75 13 97 35.5 130/79(107) NSR 0 (11) 9(A) , No pain 9:44:08 76 16 97 32.5 133/82(121) NSR 0 (11) 10(A) , No pain 9:48:18 75 14 27.2 134/76(96) NSR 0 (11) 10(A) , No pain Medications Time Medication Route Dose Verified Delivered Reason Notes Effectiveness by by 9:07:54 Oxygen NC 2 Bc Buffie used for l/min Cyndi Medina RN procedure 9:08:01 Lidocaine 2% added 20ml Bc Bc for local to vial Cyndi Hanna MD anesthetic field 9:08:08 Heparin Flush added 2 Bc Bc used for Bag to bags Cyndi Hanna MD procedure (1000units/500ml field NS) 9:08:16 0.9% NaCl I.V. 100 Bc Buffie Per physician ml/hr Cyndi Medina RN 9:14:21 Versed I.V. 1 mg Bc Buffie for sedation Cyndi Medina RN 9:14:29 Fentanyl I.V. 50 Bc Buffie for sedation mcg Cyndi Medina RN 9:19:23 Versed I.V. 1 mg Bc Buffie for sedation Cyndi Medina RN 9:19:30 Fentanyl I.V. 50 Bc Buffie for sedation mcg Cyndi Medina RN 9:23:41 Versed I.V. 1 mg Bc Buffie for sedation Cyndi Medina RN 9:23:44 Fentanyl I.V. 50 Bc Buffie for sedation mcg Cyndi Medina RN 9:31:16 Heparin Bolus I.V. 4000 Bc Buffie for verifie d units Cyndi Medina RN anticoagulation with dr hanna 9:42:36 Versed I.V. 1 mg Bc Buffie for sedation Cyndi Medina RN 9:42:40 Fentanyl I.V. 50 Bc Buffie for sedation mcg Cyndi Medina RN Procedure Log Time Note 8:37:02 Redd Quispe RT(R) sent for patient. Start room use. 8:37:03 Time tracking: Regular hours 8:37:06 Plan of Care:Hemodynamics will remain stable., Cardiac rhythm will remain stable., Comfort level will be maintained., Respiratory function will remain adequate., Patient/ family verbilizes understanding of procedure., Procedure tolerated without complication., Recovers from procedure without complications.. 8:50:10 Lab Result : BUN 12 mg/dl 8:50:10 Lab Result : Creatinine 1 mg/dl 8:50:10 Lab Result : Hemoglobin 15.4 g/dl 8:50:42 Patient allergic to Other allergySHRIMP,LIPITOR 8:57:29 Patient received from Pre/Post Procedure Room to CCL 2 Alert and oriented. Tansferred to table in Supine position. 8:57:30 Warm blankets applied, and gil hugger turned on for patient comfort. 8:57:31 Correct patient and procedure confirmed by team. 8:57:32 Signed procedure consent form obtained from patient. 8:57:33 ECG and BP/O2 sat monitors applied to patient. 9:05:45 Vital chart was started 9:05:55 Baseline sample Acquired. 9:06:00 Rhythm: sinus rhythm 9:06:01 Full Disclosure recording started 9:07:54 Oxygen 2 l/min NC was administered by Javy Medina RN; used for procedure; 9:08:01 Lidocaine 2% 20ml vial added to field was administered by Bc Hanna MD; for local anesthetic; 9:08:08 Heparin Flush Bag (1000units/500ml NS) 2 bags added to field was administered by Bc Hanna MD; used for procedure; 9:08:16 0.9% NaCl 100 ml/hr I.V. was administered by Javy Medina RN; Per physician; 9:08:28 Baseline sample Acquired. 9:08:39 Pre-procedure instructions explained to patient. 9:08:40 Pre-op teaching completed and patient verbalized understanding. 9:08:43 Family in patients room. 9:08:45 Patient NPO since Midnight. 9:11:03 Is the patient allergic to Iodine/contrast media? Yes. 9:11:05 Was the patient premedicated? Yes 9:11:07 Is patient on blood thinner?Yes 9:12:46 ACC The patient was administered the following blood thiners within the last 24 hours: ACCEffient 9:12:47 H&P Date Dictated: 09/09/2017 Within 30 days and on chart., H&P Addendum completed by physician on day of procedure. (MUST COMPLETE FOR ALL OUTPATIENTS). 9:12:49 Patient diabetic? No. 9:12:51 Previous problem with sedation/anesthesia? No ? 9:12:52 Snore? Yes 9:12:53 Sleep apnea? Yes 9:12:54 Deviated septum? No 9:12:55 Opens mouth fully? Yes 9:12:56 Sticks out tongue? Yes 9:12:57 Airway obstruction? No ? 9:12:59 Dentures? No ? 9:13:03 Pre procedure: right dorsailis pedis pulse 2+ Normal; easily identifiable; not easily obliterated 9:13:06 Patient pain scale 0/10 ?. 9:13:10 IV patent on arrival in left antecubital with 0.9% NaCl at [facility]. 9:13:13 Lab results completed and on chart. 9:13:16 Right groin area was prepped with chlora-prep and draped in sterile fashion 9:13:21 Alarms reviewed by R. N. 9:13:21 Sharps counted by scrub and verified by R.N. 9:13:22 --------ALL STOP TIME OUT------ 9:13:23 Final Timeout: patient, procedure, and site verified with staff and physician. All members of the team are in agreement. 9:13:25 Right groin site verified by team. 9:13:28 Physical assessment completed. ASA score P 2 - A patient with mild systemic disease as per Bc Hanna MD. 9:13:31 Sedation plan: IV Moderate Sedation Medication:Versed, Fentanyl 9:13:41 Use device set Femoral Dx 9:13:42 ACIST Syringe (30154) opened to sterile field. 9:13:42 Bag Decanter () opened to sterile field. 9:13:43 Medline Cath Pack ([id number]) opened to sterile field. 9:13:46 ACIST Hand Control (41853) opened to sterile field. 9:13:47 ACIST Manifold (81444) opened to sterile field. 9:13:48 Tegaderm 4 x 4 (1626W) opened to sterile field. 9:13:49 SHEATH 5FR [place] (XIM962) opened to sterile field. 9:13:50 DIAGNOSTIC WIRE .035 260cm J wire (761314) opened to sterile field. 9:13:52 DIAGNOSTIC Multipack 5Fr catheter set (DI5087) opened to sterile field. 9:13:53 PERCUTANEOUS ENTRY 19GA needle opened to sterile field. 9:14:21 Versed 1 mg I.V. was administered by Javy Medina RN; for sedation; 9:14:29 Fentanyl 50 mcg I.V. was administered by Javy Medina RN; for sedation; 9:19:23 Versed 1 mg I.V. was administered by Javy Medina RN; for sedation; 9:19:30 Fentanyl 50 mcg I.V. was administered by Javy Medina RN; for sedation; 9:21:02 Procedure started. 9:21:10 Local anesthetic to right femoral artery with Lidocaine 2% by Bc Hanna MD.INITIAL ACCESS ONLY 9:21:16 Zero performed for pressure channel P1 9:22:38 SHEATH 5FR [place] (URL025) opened to sterile field. 9:22:42 A 5 Fr sheath was inserted into the Right Femoral artery 9:23:11 AMPLATZ Super Stiff 75cm wire ([id number]) opened to sterile field. 9:23:41 Versed 1 mg I.V. was administered by Javy Medina RN; for sedation; 9:23:44 Fentanyl 50 mcg I.V. was administered by Javy Medina RN; for sedation; 9:24:31 A MULTIPACK Pigtail 5 Fr catheter was advanced over the wire and used for Procedure. 9:24:37 LV gram done using BURCH 9:24:39 Injector settings: Ml/sec: 10, Volume: 20, 9:24:54 EF : 60 % 9:24:55 Catheter removed. 9:25:04 DIAGNOSTIC WIRE .035 260cm J wire (253819) opened to sterile field. 9:25:32 A MULTIPACK JL 4.0 5Fr catheter was advanced over the wire and used for Procedure. 9:26:03 LCA angiography performed. 9:26:19 Catheter removed. 9:26:34 A MULTIPACK 3DRC 5Fr catheter was advanced over the wire and used for Procedure. 9:27:00 MARTINEZ to LAD angiography performed. 9:27:38 SVG to RCA angiography performed. 9:28:58 Catheter removed. 9:30:39 SHEATH 6FR [place] (BYK544) opened to sterile field. 9:30:44 Sheath upsized to a 6 Fr Short. 9:30:54 CHOICE PT Extra Support 182cm wire ([id number]) opened to sterile field. 9:30:54 INFLATOR [place]it BasixCompak (NU6888) opened to sterile field. 9:31:16 Heparin Bolus 4000 units I.V. was administered by Javy Medina RN; for anticoagulation; verified with dr hanna 9:32:01 GUIDE 6FR XBLAD 3.5 catheter ([id number]) opened to sterile field. 9:32:20 6 Fr XBLAD 3.5 guide catheter was inserted over the wire 9:32:28 CHOICE 182 wire advanced. 9:32:39 Wire advanced across lesion. 9:33:37 Inflate balloon Inflation number: 1 A EUPHORA 2.5 x 12 Balloon ([id number]) was prepped and advanced across the Mid LAD, then inflated to 15 ELIAS for 0:00 (min:sec). 9:33:56 Balloon removed over the wire. 9:39:17 Pass Number: 1 A LASER ELCA 0.9 Rx atherectomy catheter (431082) was advanced to the Mid LAD. Laser Begun. Frequency: 0 Power: 0 9:39:22 Laser pass to mLAD with Fluence of 80 and Rate of 40. 9:41:41 Laser catheter removed. 9:42:36 Versed 1 mg I.V. was administered by Javy Medina RN; for sedation; 9:42:40 Fentanyl 50 mcg I.V. was administered by Javy Medina RN; for sedation; 9:42:59 Inflation number: 2 The EUPHORA 2.5 x 12 Balloon ([id number]) was reinflated across the Mid LAD, to 17 ELIAS for 0:10 (min:sec). 9:43:11 Inflation number: 3 The EUPHORA 2.5 x 12 Balloon ([id number]) was reinflated across the Mid LAD, to 17 ELIAS for 0:17 (min:sec). 9:43:26 Balloon removed over the wire. 9:43:37 Wire removed. 9:43:37 Guide catheter removed. 9:43:44 EXOSEAL 6Fr (EX600) opened to sterile field. 9:44:07 Sheath removed intact; hemostasis achieved with Exoseal to the Right Femoral artery. 9:44:39 Laser total treatment time: 1 minutes 18 seconds 9:44:50 Procedure ended.(Physican Out) 9:45:54 Fluoroscopy time 00.00 minutes. 9:45:57 Flurop Dose total: 999 9:45:57 Fluoroscopy dose: 999 mGy 9:46:00 Contrast amount:Isovue 300 110ml. 9:46:01 Sharps counted by scrub and verified by R.N. 9:46:05 Post-op/insertion site Right Femoral artery dressed using a 4 x 4 and Tegaderm. 9:46:08 Post right femoral artery:stable, soft, clean and dry 9:46:12 Post-procedure physical assessment completed. ASA score P 2 - A patient with mild systemic disease as per Bc Hanna MD. 9:46:14 Post procedure rhythm: unchanged. 9:46:16 Estimated blood loss: 10 ml 9:46:17 Post procedure instruction explained to patient.Patient verbalizes understanding. 9:47:32 Patient needs reinforcement of post procedure teaching. 9:48:48 Procedure type changed to Cath procedure, Diagnostic procedure, LHC, LHC w/Coronaries w/Grafts, Sedation Charges, Moderate Sedation up to 30 minutes, PCI procedure, Coronary Atherectomy, Atherectomy w/PTCA Coronary Initial 9:51:04 Procedure and supply charges have been captured, reviewed, submitted and are correct. 9:51:07 Procedure Complication : No complications 9:51:09 Vital chart was stopped 9:51:10 See physician's report for complete and final results. 9:51:15 Report given to Pre/Post Procedure Room. 9:51:23 Patient transfered to Pre/Post Procedure Room with Bed. 9:51:25 Procedure ended. 9:51:25 Full Disclosure recording stopped 9:51:36 End room use (Document Last) Intervention Summary Intervention Notes Time ActionType Lesion and Equipment Action# Pressure Duration Attributes Used 9:33:37 Inflate Mid LAD EUPHORA 2.5 1 15 00:00 balloon x 12 Balloon ([id number]) 9:39:17 Laser pass Mid LAD LASER ELCA 0.9 Rx atherectomy catheter ([id number]) 9:42:59 Reinflate Mid LAD EUPHORA 2.5 2 17 00:10 balloon x 12 Balloon ([id number]) 9:43:11 Reinflate Mid LAD EUPHORA 2.5 3 17 00:17 balloon x 12 Balloon ([id number]) Device Usage Item Name Manufacture Quantity Catalog Number Hospital Part Current Mini mal Lot# / Charge Number Stock Stock Serial# Code ACIST Acist 1 67801 408107 273024 773322 20 Syringe Medical (52226) Systems Inc Bag Decanter Microtek 1 2001S 729497 40542 616084 5 (2001S) Medical Inc. Medline Cath Cardinal 1 [id number] 209083 19056 780693 5 Pack Health ([id number]) ACIST Hand Acist 1 23535 055207 035246 678290 5 Control Medical (33571) Systems Inc ACIST Acist 1 51786 901569 110957 986374 5 Manifold Medical (23477) Systems Inc Tegaderm 4 x 3M 1 1626W 630323 502136 887440 5 4 (1626W) SHEATH 5FR Terumo 2 LRT908 498129 480086 213294 40 [place] (EJE315) DIAGNOSTIC St Vini 2 431752 903396 003007 481277 30 WIRE .035 260cm J wire (211896) DIAGNOSTIC Cardinal 1 OE2568 394669 10672 160171 30 Multipack Health 5Fr catheter set (LK1588) PERCUTANEOUS [place] Medical 1 M96821 248504 592906 5 ENTRY 19GA needle AMPLATZ [place] 1 [id number] 598753 983092 565603 5 Super Stiff Scientific 75cm wire ([id number]) MULTIPACK Cardinal 1 736956 5 Pigtail 5 Fr Health catheter MULTIPACK JL Cardinal 1 895207 5 4.0 5Fr Health catheter MULTIPACK Cardinal 1 343386 5 3DRC 5Fr Health catheter SHEATH 6FR Terumo 1 QNW717 085749 558717 987741 40 [place] (RIA436) CHOICE PT [place] 1 [id number] 534188 382975 031775 5 Extra Scientific Support 182cm wire ([id number]) INFLATOR [facility] 1 WH8134 973238 241982 362190 15 [facility] BasixCompak (GL8506) GUIDE 6FR Cardinal 1 [id number] 035743 062076 688526 10 XBLAD 3.5 Health catheter ([id number]) EUPHORA 2.5 Medtronic 1 [id number] 085460 146883 769291 5 [id number] x 12 Balloon ([id number]) LASER ELCA Shanon 1 110-004 977353 855692 651300 5 0.9 Rx Healthcare atherectomy (473535) catheter (969852) EXOSEAL 6Fr Cardinal 1 EX600 334984 148626 543392 10 (EX600) Health Signature Audit [place] Stage Time Signature Unsigned Intra-Procedure 09/09/2017 Sharita Rubalcava 9:51:50 AM RT(R) Signatures Monitor : Sharita Rubalcava Signature : RT Date : Time : [address] [address]
[~2017-09-09 07:37] MED LIST changes: +AMOXICILLIN875 MG PO; +CO Q-1030 MG PO; +DILAUDID2 MG PO; +HYDROCODONE-APA1 TAB PO; +LIPITOR40 MG PO; +PREDNISONE20 MG PO; +PROAIR HFA8.5 GM INH
[2017-09-09 08:03] VITALS: BP 141/72; Ht 177.8 cm; Wt 84.1 kg
[2017-09-09 08:16] LABS: BASOPHILS 0.2 % (0-2); EOSINOPHILS 0.2 % (0-7); HEMATOCRIT 45.9 % (42.0-54.0); HEMOGLOBIN 15.4 g/dL (13.5-17.5); IMMATURE GRANULOCYTES 1.8 % (0-5); MCHC 33.6 g/dL (31.0-37.0); MCV 89.3 fL (80.0-100.0); MEAN PLATELET VOLUME 9.6 fL (7.4-10.4); MONOCYTES 1.9 % (2-11); NEUTROPHILS 84.9 % (40-80); PLATELET COUNT 259 10x3/uL (130-400); RBC 5.14 10x6/uL (4.20-6.10); RDW 13.7 % (11.5-14.5); WBC 10.3 10x3/uL (4.8-10.8)
[2017-09-09 08:36] LABS: CALC OSMOLALITY 285 mosm/kg (275-300); CALCIUM 9.6 mg/dL (8.5-10.1); CARBON DIOXIDE 23.8 mmol/L (21.0-32.0); CHLORIDE - SERUM 105 mmol/L (98-107); GLUCOSE 151 mg/dL (74-106); POTASSIUM - SERUM 4.7 mmol/L (3.5-5.1); SODIUM 142 mmol/L (136-145); UREA NITROGEN 12 mg/dL (7-18); eGFR NON AFRICAN AMERICAN 79 mL/min (90-120)
== END | disposition home or self-care (01) ==
LOC: D.CATH 07:37
PROVIDERS: Internal Medicine Interventional Cardiology
DX: I25.110 Atherosclerotic heart disease of native coronary artery with unstable angina pectoris (principal); Z95.1 Presence of aortocoronary bypass graft; Z95.5 Presence of coronary angioplasty implant and graft; I10 Essential (primary) hypertension; E78.5 Hyperlipidemia, unspecified; Z01.812 Encounter for preprocedural laboratory examination

== ENCOUNTER 2017-10-20 05:10 | Day surgery (SDC) | payer MEDICARE, BC ==
[~2017-10-20] VITALS: Ht 175.3 cm; Wt 82.1 kg
--- NOTE | ~2017-10-20 | OP ---
PATIENT NAME: ELDER PARKER MEDICAL RECORD: [id number] :48 LOCATION:DJOSE ADMISSION DATE: SURGEON: EUGENE MURGUIA MD DATE OF OPERATION: 10/20/2017 PREOPERATIVE DIAGNOSIS: Adhesive capsulitis of the right shoulder. POSTOPERATIVE DIAGNOSIS: Adhesive capsulitis of the right shoulder. PROCEDURE: Manipulation of the right shoulder under anesthesia. SURGEON: Eugene Murguia MD ANESTHESIA: General. INTRAOPERATIVE COMPLICATIONS: None. SUMMARY OF PATHOLOGIC FINDINGS: Essentially consistent with preoperative diagnosis. The patient has very tight shoulder, which responded best to manipulation with abduction. OPERATIVE SUMMARY IN DETAIL: After obtaining the appropriate preoperative orthopedic surgery consent as well as anesthetic consultation, evaluation, and clearance, the patient was brought to the operating room and placed on the operating table in supine position. After TIVA anesthesia was administered, the patient's right scapula was stabilized and manipulation was carried out first in abduction followed by external rotation, internal rotation, forward flexion, abduction and extension. Having completed this, the patient was awakened and taken back to outpatient in stable condition. TRANSINT:[id number] Voice Confirmation ID: [id number] DOCUMENT ID: [id number] EUGENE MURGUIA MD at 1124 CC: [id number] DICTATION DATE: 10/20/17 08 REMOTE SENSING SURVEYOR: 10/20/17822 [facility] 10/20/17 [place] [id number] [place] [address]
--- NOTE | ~2017-10-20 | OP ---
PATIENT NAME: ELDER PARKER MEDICAL RECORD: [id number] :48 LOCATION:DLjOPS ADMISSION DATE: SURGEON: EUGENE MURGUIA MD DATE OF OPERATION: 10/20/2017 PREOPERATIVE DIAGNOSIS: Adhesive capsulitis of the right shoulder. POSTOPERATIVE DIAGNOSIS: Adhesive capsulitis of the right shoulder. PROCEDURE: Manipulation under anesthesia. SURGEON: Eugene Murguia MD ANESTHESIA: TIVA. INTRAOPERATIVE COMPLICATIONS: None. SUMMARY OF PATHOLOGIC FINDINGS: Consistent with the preoperative diagnosis. The patient had postoperative adhesive capsulitis of his right shoulder. OPERATIVE SUMMARY IN DETAIL: After obtaining the appropriate preoperative orthopedic surgery consent as well as anesthetic consultation, evaluation, and clearance, the patient was brought to the operating room and placed on the operating table in supine position. After TIVA anesthesia was administered, the patient's scapula was stabilized. The shoulder manipulation was carried out first and abduction followed by forward flexion, internal and external rotation. Good range of motion was achieved with good breakup of the adhesions about the shoulder. Having completed this, the patient was awakened and taken back to outpatient in stable condition. TRANSINT:[id number] Voice Confirmation ID: [id number] DOCUMENT ID: [id number] EUGENE MURGUIA MD at 1352 CC: [id number] DICTATION DATE: 10/20/17 1121 TRANSPORTATION MAINTENANCE OPERATOR: 10/20/17 1144 [facility] 10/20/17 [facility] [address] [place] [address]
[~2017-10-20 05:10] MED LIST changes: -AMOXICILLIN875 MG PO; -CO Q-1030 MG PO; -HYDROCODONE-APA1 TAB PO; -PROAIR HFA8.5 GM INH
[2017-10-20 05:55] LABS: HEMATOCRIT 40.6 % (42.0-54.0); HEMOGLOBIN 13.5 g/dL (13.5-17.5); MCH 29.3 pg (26.0-34.0); MCHC 33.3 g/dL (31.0-37.0); MCV 88.3 fL (80.0-100.0); MEAN PLATELET VOLUME 9.4 fL (7.4-10.4); RBC 4.6 10x6/uL (4.20-6.10); RDW 13.9 % (11.5-14.5); WBC 7.5 10x3/uL (4.8-10.8)
[2017-10-20] MEDS ORDERED: CO Q-1030 MG PO (06:18)
[2017-10-20] MEDS ORDERED: AMOXICILLIN875 MG PO (06:18)
[2017-10-20] MEDS ORDERED: PROAIR HFA8.5 GM INH (06:19)
[2017-10-20 06:47] VITALS: BP 125/69; Ht 175.3 cm; Wt 82.1 kg
[2017-10-20] MEDS ORDERED: HYDROCODONE-APA1 TAB PO (08:07)
== END 2017-10-20 09:30 | disposition home or self-care (01) ==
LOC: D.OPS 05:10 → D.PAN 07:30 → D.OPS 09:30
PROVIDERS: Anesthesiology
DX: M75.01 Adhesive capsulitis of right shoulder (principal); Z01.812 Encounter for preprocedural laboratory examination

== ENCOUNTER 2018-04-06 07:21 | Day surgery (SDC) | payer MEDICARE, BC ==
[~2018-04-06] VITALS: Ht 175.3 cm; Wt 84.1 kg
--- NOTE | ~2018-04-06 | OP ---
PATIENT NAME: ELDER PARKER MEDICAL RECORD: [id number] :48 LOCATION:BENJA ADMISSION DATE: SURGEON: ELIJAH MONK DO DATE OF OPERATION: 04/06/2018 PROCEDURE: Colonoscopy with polypectomy. INDICATIONS FOR PROCEDURE: Screening for colorectal cancer. SCOPE: Olympus video pediatric colonoscope. MEDICATIONS: Propofol 450 mg IV per anesthesia. WITHDRAWAL TIME: 26 minutes. ESTIMATED BLOOD LOSS: Minimal. COMPLICATIONS: None. FINDINGS: Informed consent was given. The patient was made comfortable with the above medication. After reaching an adequate level of sedation by slow IV push, the patient was placed on his left side. A digital rectal examination was performed and was normal. The endoscope was then advanced under direct visualization through the rectum to the cecum, confirmed by the presence of the appendiceal orifice and ileocecal valve. The endoscope was slowly withdrawn and mucosa was carefully examined. The prep quality was fair. There was evidence of moderate diverticulosis involving the sigmoid colon and in the distal descending colon. There was no evidence of diverticulitis. There were 3 polyps visualized on today's examination. The first was located in the cecum. It measured approximately 9 mm in diameter. It was removed using endoscopic mucosal resection technique with an isotonic saline injection to create a saline pillow, followed by snare polypectomy in one piece. The other 2 polyps were located in the ascending colon. One was a smaller polyp, which was benign appearing and sessile and measured approximately 4 mm in diameter. It was removed using a hot forceps in one piece and completely retrieved. A second polyp in the ascending colon was a larger polyp, which measured approximately 1 cm in diameter. It was removed using endoscopic mucosal resection technique with an injection of isotonic saline to create a pillow, followed by snare polypectomy. Retroflexion was performed in the rectum with visualization of grade I internal hemorrhoids without active bleeding. The endoscope was then unretroflexed and withdrawn from the patient. The patient tolerated the procedure well, and there were no complications. IMPRESSION: 1. Three polyps as described above, removed using a combination of endoscopic mucosal resection technique and hot forceps. 2. Moderate diverticulosis of the distal descending colon and sigmoid colon. 3. Grade I internal hemorrhoids without bleeding. PLAN AND RECOMMENDATIONS: 1. Discharge home when recovery parameters are met. 2. Follow up biopsy specimen results. 3. High-fiber diet. 4. Continue current medications. 5. Recall colonoscopy in 2-3 years for surveillance based on a personal history OPERATIVE REPORT [id number] ELDER PARKER of colon polyps. TRANSINT:[id number] Voice Confirmation ID: [id number] DOCUMENT ID: [id number] ELIJAH MONK DO at 1739 CC: [id number] DICTATION DATE: 04/06/18 1014 DIRECTOR DATA ARCHITECTURE: 04/06/18 1045 [facility] 04/06/18 [address] [place] [address]
[~2018-04-06 07:21] MED LIST changes: +AMOXICILLIN875 MG PO; +CO Q-1030 MG PO; +HYDROCODONE-APA1 TAB PO; +PROAIR HFA8.5 GM INH
[2018-04-06 07:45] LABS: BASOPHILS 0.3 % (0-2); EOSINOPHILS 2.2 % (0-7); HEMATOCRIT 44.8 % (42.0-54.0); IMMATURE GRANULOCYTES 0.5 % (0-5); LYMPHOCYTES 13.8 % (15-50); MCH 29.8 pg (26.0-34.0); MCHC 33.5 g/dL (31.0-37.0); MCV 89.1 fL (80.0-100.0); MEAN PLATELET VOLUME 9.4 fL (7.4-10.4); NEUTROPHILS 74.2 % (40-80); PLATELET COUNT 226 10x3/uL (130-400); RBC 5.03 10x6/uL (4.20-6.10); RDW 13.5 % (11.5-14.5); WBC 7.9 10x3/uL (4.8-10.8)
[2018-04-06 07:58] LABS: APTT 25.1 SECONDS (22.8-39.4); INR 1.01 (0.85-1.17); PROTIME 12.9 SECONDS (11.6-15.0)
[2018-04-06 08:00] LABS: ANION GAP 13.5 mmol/L (8-16); CARBON DIOXIDE 28.4 mmol/L (21.0-32.0); CREATININE - SERUM 1.1 mg/dL (0.6-1.3); POTASSIUM - SERUM 3.9 mmol/L (3.5-5.1)
[2018-04-06 08:17] VITALS: BP 120/66; Ht 175.3 cm; Wt 84.1 kg
== END 2018-04-06 11:38 | disposition home or self-care (01) ==
LOC: D.OPS 07:21
PROVIDERS: Anesthesiology
DX: Z12.11 Encounter for screening for malignant neoplasm of colon (principal); D12.2 Benign neoplasm of ascending colon; D12.0 Benign neoplasm of cecum; K57.30 Diverticulosis of large intestine without perforation or abscess without bleeding; K64.0 First degree hemorrhoids; Z01.812 Encounter for preprocedural laboratory examination

== ENCOUNTER 2018-05-22 08:37 | Outpatient (CLI) | payer MEDICARE, BC ==
[~2018-05-22] VITALS: Ht 175.3 cm; Wt 82.7 kg
--- NOTE | ~2018-05-22 | HEMODYNAMI ---
PATIENT:ELDER PARKER MEDICAL RECORD: [id number] : 48 LOCATION:D.CAT ADMISSION DATE: 05/22/18 Generatedon:05/22/201811:49 Patient name: ELDER PARKER Patient #: [id number] : 1950 Date of study: 05/22/2018 Page: Of Hemodynamic Procedure Report Patient Data Patient Demographics Procedure consent was obtained First Name: ELDER Gender: Male Last Name: ELENA : 1950 [facility] Initial: JOSÉ MIGUEL Age: 68 year(s) Patient #: [id number] Race: SSN: [id number] Additional ID: [id number] Contact details [address]: [address] [place] [address] State: [place] City: [place] Zip code: [address] Past Medical History Allergies Allergen Reaction Date Comments Reported Shellfish 10/17/2014 Other allergy 05/29/2016 Shrimp Shellfish 11/29/2016 Other allergy 11/29/2016 Lipitor Other allergy 09/09/2017 SHRIMP,LIPITOR Admission Admission Data Admission Date: 05/22/2018 Admission Time: 8:37 Procedure Procedure Types Cath Procedure Diagnostic Procedure C LHC w/Coronaries w/Grafts PCI Procedure Coronary Stent Coronary Stent Initial Coronary Atherectomy Atherectomy w/Stent Coronary Initial Procedure Description Procedure Date Procedure Date: 05/22/2018 Procedure Start Time: 11:10 Procedure End Time: 11:44 Procedure Staff Name Function Bc Hanna MD Performing Physician Juanpablo Domingo RT Monitor Kristina River RN Nurse Rosa Isela Cordon RT Scrub Procedure Data Cath Procedure Fluoroscopy Diagnostic fluoroscopy Total fluoroscopy Time: time: 13.4 min 13.4 min Diagnostic fluoroscopy Total fluoroscopy dose: dose: 1580 mGy 1580 mGy Contrast Material Contrast Material Type Amount (ml) Isovue 300 154 Entry Location Entry Primary Successful Side Size Upsize Upsize Entry Closure Succes sful Closure Location (Fr) 1 (Fr) 2 (Fr) Remarks Device Remarks Femoral Right 5 Fr 6 Fr Exoseal artery Short Diagnostic catheters Device Type Used For End Catheter Placement MULTIPACK Pigtail 5 Fr LV Angiography catheter MULTIPACK JL 4.0 5Fr Left Coronary catheter Angiography MULTIPACK 3DRC 5Fr Right Coronary catheter Angiography Procedure Complications No complications Procedure Medications Medication Administration Route Dosage 0.9% NaCl I.V. 100 ml/hr Oxygen etCO2 Nasal cannula 2 l/min Lidocaine 2% added to field 20 Heparin Flush Bag added to field 2 bags (1000units/500ml NS) Versed I.V. 2 mg Fentanyl I.V. 50 mcg Versed I.V. 1 mg Fentanyl I.V. 25 mcg Heparin Bolus I.V. 5000 units Fentanyl I.V. 25 mcg Versed I.V. 1 mg Versed I.V. 1 mg Fentanyl I.V. 25 mcg Hemodynamics Rest Heart Rate: 23 (bpm) Snapshots Pre Cath Intra NCS Post Cath Vital Signs Time Heart Resp SPO2 etCO2 NIBP (mmHg) Rhythm Pain Sedation Rate (ipm) (%) (mmHg) Status Level (bpm) 10:43:09 57 15 97 22 144/82(107) NSR 0 (11) 10(A) , No pain 10:47:25 56 20 100 26.8 143/79(94) NSR 0 (11) 10(A) , No pain 10:51:43 56 16 99 29 129/75(87) NSR 0 (11) 10(A) , No pain 10:56:06 56 11 99 25.3 121/64(86) NSR 0 (11) 10(A) , No pain 11:00:20 56 14 98 28.3 119/68(83) NSR 0 (11) 10(A) , No pain 11:04:36 57 15 97 30.5 108/68(93) NSR 0 (11) 10(A) , No pain 11:08:50 57 13 98 29.7 125/63(76) NSR 0 (11) 10(A) , No pain 11:13:57 58 12 98 29.1 153/71(104) NSR 0 (11) 9(A) , No pain 11:18:15 57 12 97 30.6 114/65(81) NSR 0 (11) 10(A) , No pain 11:22:31 58 12 97 32.1 117/62(82) NSR 0 (11) 9(A) , No pain 11:26:49 58 12 98 32.1 122/66(93) NSR 0 (11) 10(A) , No pain 11:31:07 60 11 98 27.6 117/68(87) NSR 0 (11) 9(A) , No pain 11:36:20 59 12 98 33.5 158/81(132) NSR 0 (11) 9(A) , No pain 11:40:39 59 13 98 32 154/85(116) NSR 0 (11) 9(A) , No pain Medications Time Medication Route Dose Verified Delivered Reason Notes Effectiveness by by 10:45:09 0.9% NaCl I.V. 100 Bc Kristina used for ml/hr Cyndi River cutting table operator first 10:45:17 Oxygen etCO2 2 Bc Kristina used for Nasal l/min Cyndi River procedure cannula RN 10:45:25 Lidocaine 2% added 20ml Bc Bc for local to vial Cyndi Hanna MD anesthetic field 10:45:29 Heparin Flush added 2 Bc Bc used for Bag to bags Cyndi Hanna MD procedure (1000units/500ml field NS) 11:04:01 Versed I.V. 2 mg Bc Kristina for sedation Cyndi River RN 11:04:07 Fentanyl I.V. 50 Bc Kristina for sedation mcg Cyndi River RN 11:10:50 Versed I.V. 1 mg Bc Kristina for sedation Cyndi River RN 11:10:54 Fentanyl I.V. 25 Bc Kristina for sedation mcg Cyndi River RN 11:16:50 Heparin Bolus I.V. 5000 Bc Kristina for verif ied units Cyndi River anticoagulation with Dr. INGRID Hanna 11:19:33 Fentanyl I.V. 25 Bc Kristina for sedation mcg Cyndi River RN 11:19:38 Versed I.V. 1 mg Bc Kristina for sedation Cyndi River RN 11:27:28 Versed I.V. 1 mg Bc Kristina for sedation Cyndi River RN 11:27:32 Fentanyl I.V. 25 Bc Kristina for sedation mcg Tauth MD [employer] Log Time Note 10:29:54 Kristina River RN sent for patient. Start room use. 10:29:57 Time tracking: Regular hours (M-F 7:00 - 5:00) 10:30:00 Plan of Care:Hemodynamics will remain stable., Cardiac rhythm will remain stable., Comfort level will be maintained., Respiratory function will remain adequate., Patient/ family verbilizes understanding of procedure., Procedure tolerated without complication., Recovers from procedure without complications.. 10:41:45 Patient received from Pre/Post Procedure Room to CCL 1 Alert and oriented. Tansferred to table in Supine position. 10:41:52 Warm blankets applied, and gil hugger turned on for patient comfort. 10:41:52 Correct patient and procedure confirmed by team. 10:41:54 Signed procedure consent form obtained from patient. 10:41:57 ECG and BP/O2 sat monitors applied to patient. 10:41:59 Baseline sample Acquired. 10:41:59 Vital chart was started 10:42:04 Rhythm: sinus rhythm 10:42:06 Full Disclosure recording started 10:42:10 H&P Date Dictated: 05/22/2018 Within 30 days and on chart., H&P Addendum completed by physician on day of procedure. (MUST COMPLETE FOR ALL OUTPATIENTS). 10:42:11 Pre-procedure instructions explained to patient. 10:42:11 Pre-op teaching completed and patient verbalized understanding. 10:42:13 Family in waiting room. 10:42:14 Patient NPO since Midnight. 10:42:18 Is the patient allergic to Iodine/contrast media? No. 10:42:19 Was the patient premedicated? Yes 10:42:28 shrimp allergy 10:42:30 Is patient on blood thinner?Yes 10:42:34 ACC The patient was administered the following blood thiners within the last 24 hours: ACCEffient 10:42:37 Patient diabetic? No. 10:42:39 Previous problem with sedation/anesthesia? No ? 10:42:41 Snore? Yes 10:42:42 Sleep apnea? Yes 10:42:43 Deviated septum? No 10:42:43 Opens mouth fully? Yes 10:42:44 Sticks out tongue? Yes 10:42:47 Airway obstruction? No ? 10:42:50 Dentures? No ? 10:42:54 Pre procedure: right dorsailis pedis pulse 2+ Normal; easily identifiable; not easily obliterated 10:42:56 Pre procedure: left dorsailis pedis pulse 2+ Normal; easily identifiable; not easily obliterated 10:42:57 Patient pain scale 0/10 ?. 10:43:03 IV patent on arrival in left forearm with 0.9% NaCl at [facility]. 10:43:05 Lab results completed and on chart. 10:43:10 Right groin area was prepped with chlora-prep and draped in sterile fashion 10:43:11 Alarms reviewed by R. N. 10:43:11 Sharps counted by scrub and verified by R.N. 10:45:09 0.9% NaCl 100 ml/hr I.V. was administered by Kristina River RN; used for procedure; 10:45:17 Oxygen 2 l/min etCO2 Nasal cannula was administered by Kristina Rivre RN; used for procedure; 10:45:25 Lidocaine 2% 20ml vial added to field was administered by Bc Hanna MD; for local anesthetic; 10:45:29 Heparin Flush Bag (1000units/500ml NS) 2 bags added to field was administered by Bc Hanna MD; used for procedure; 10:49:21 Use device set Femoral Dx 10:49:22 ACIST Syringe (01636) opened to sterile field. 10:49:23 Bag Decanter (2002) opened to sterile field. 10:49:23 Medline Cath Pack ([id number]) opened to sterile field. 10:49:24 DIAGNOSTIC WIRE .035 260cm J wire (219066) opened to sterile field. 10:49:25 ACIST Hand Control (92731) opened to sterile field. 10:49:25 ACIST Manifold (42020) opened to sterile field. 10:49:26 DIAGNOSTIC Multipack 5Fr catheter set (SM3903) opened to sterile field. 10:49:26 Tegaderm 4 x 4 (1626W) opened to sterile field. 10:49:27 SHEATH 5FR [place] (XTY426) opened to sterile field. 11:03:34 Physician arrived 11:03:36 --------ALL STOP TIME OUT------ 11:03:37 Final Timeout: patient, procedure, and site verified with staff and physician. All members of the team are in agreement. 11:03:39 Right groin site verified by team. 11:03:43 Physical assessment completed. ASA score P 2 - A patient with mild systemic disease as per Bc Hanna MD. 11:03:47 Sedation plan: IV Moderate Sedation Medication:Versed, Fentanyl 11:04:01 Versed 2 mg I.V. was administered by Kristina River RN; for sedation; ::07 Fentanyl 50 mcg I.V. was administered by Kristina River RN; for sedation; 11:07:26 Procedure started. 11:10:23 Local anesthetic to right femoral artery with Lidocaine 2% by Bc Hanna MD.INITIAL ACCESS ONLY 11:10:31 A 5 Fr sheath was inserted into the Right Femoral artery 11:10:47 A MULTIPACK Pigtail 5 Fr catheter was advanced over the wire and used for LV Angiography. 11:10:50 Versed 1 mg I.V. was administered by Kristina River RN; for sedation; 11::54 Fentanyl 25 mcg I.V. was administered by Kristina River RN; for sedation; 11:10:56 LV angiography performed. 11:11:02 EF : 50 % 11:11:07 LV gram done using BURCH 11:11:08 Catheter removed. 11:11:15 A MULTIPACK JL 4.0 5Fr catheter was advanced over the wire and used for Left Coronary Angiography. 11:11:21 Baseline sample Acquired. 11:11:30 Baseline sample Acquired. 11:11:37 LCA angiography performed. 11:12:11 Catheter removed. 11:12:18 A MULTIPACK 3DRC 5Fr catheter was advanced over the wire and used for Right Coronary Angiography. 11:13:22 MARTINEZ to LAD angiography performed. 11:13:29 RCA angiography performed. 11:13:39 SVG to RCA angiography performed. 11:14:53 Catheter removed. 11:15:15 SHEATH 6FR [place] (VOU675) opened to sterile field. 11:15:35 INFLATOR Merit BasixCompak (OH9489) opened to sterile field. 11:16:45 GUIDE 6FR AR 2.0 catheter (MV6XP89) opened to sterile field. 11:16:46 FIELDER XT J 300cm guide wire ([id number]) opened to sterile field. 11:16:50 Heparin Bolus 5000 units I.V. was administered by Kristina River RN; for anticoagulation; verified with Dr. Hanna 11:17:08 Sheath upsized to a 6 Fr Short. 11:17:18 6 Fr AR 2 guide catheter was inserted over the wire 11:17:27 FIELDER wire advanced. 11:19:33 Fentanyl 25 mcg I.V. was administered by Kristina River RN; for sedation; 11:19:38 Versed 1 mg I.V. was administered by Kristina River RN; for sedation; 11:20:48 The EMERGE OTW 1.5 x 20 balloon ([id number]) was advanced and then removed because of failure to cross lesion 11:21:37 Balloon removed over the wire. 11:22:23 Procedure type changed to Cath procedure, Diagnostic procedure, LHC, LHC w/Coronaries w/Grafts, PCI procedure, Coronary Stent, Coronary Stent Initial, Coronary Atherectomy, Atherectomy w/Stent Coronary Initial 11:23:10 LASER ELCA 0.9 Rx atherectomy catheter (558777) opened to sterile field. 11:24:04 Laser pass to dRCA with Fluence of 80 and Rate of 80. 11:25:49 LASER PUSHED WIRE OUT OF ARTERY. LOST GUIDE 11:26:03 Laser catheter removed. 11:26:05 Wire removed. 11:26:22 FIELDER XT J 300cm guide wire ([id number]) opened to sterile field. 11:26:40 NEW FIELDER wire advanced. 11:27:28 Versed 1 mg I.V. was administered by Kristina River RN; for sedation; 11:27:32 Fentanyl 25 mcg I.V. was administered by Kristina River RN; for sedation; 11:30:12 Inflate balloon Inflation number: 1 A EMERGE OTW 1.5 x 20 balloon ([id number]) was prepped and advanced across the Undefined3, then inflated to 21 ELIAS for 0:20 (min:sec). 11:30:20 Balloon removed over the wire. 11:33:30 Place stent Inflation Number: 1 A REINA RX 4.0 x 22 stent ([id number]) was prepped and advanced across the Undefined2. The stent was deployed at 21 ELIAS for 0:10 (min:sec). 11:35:12 Stent catheter was removed intact over wire. 11:35:48 Inflate balloon Inflation number: 1 A EUPHORA 2.0 x 15 Balloon ([id number]) was prepped and advanced across the Undefined6, then inflated to 13 ELIAS for 0:21 (min:sec). 11:37:36 Balloon removed over the wire. 11:39:06 Place stent Inflation Number: 1 A REINA OTW 2.25 x 08 stent ([id number]) was prepped and advanced across the Undefined7. The stent was deployed at 13 ELIAS for 0:14 (min:sec). 11:39:19 Inflation number: 2 The stent balloon was then re-inflated across the Undefined7 to 17 ELIAS for 0:11 (min:sec). 11:39:28 EXOSEAL 6Fr (EX600) opened to sterile field. 11:39:36 Stent catheter was removed intact over wire. 11:39:37 Wire removed. 11:39:37 Guide catheter removed. 11:39:42 Contrast amount:Isovue 300 154ml. 11:39:50 Sheath removed intact; hemostasis achieved with Exoseal to the Right Femoral artery. 11:39:52 Procedure ended.(Physican Out) 11:40:20 Fluoroscopy time 13.40 minutes. 11:40:26 Flurop Dose total: 1580 11:40:26 Fluoroscopy dose: 1580 mGy 11:40:29 Sharps counted by scrub and verified by R.N. 11:41:35 Insertion/operative site no bleeding no hematoma. 11:41:38 Post-op/insertion site Right Femoral artery dressed using a 4 x 4 and Tegaderm. 11:41:42 Post right femoral artery:stable 11:42:45 Post Procedure Pulses reassessed and unchanged 11:42:48 Post procedure: right dorsailis pedis pulse 2+ Normal; easily identifiable; not easily obliterated. 11:42:51 Post procedure rhythm: sinus rhythm 11:42:53 Post procedure instruction explained to patient.Patient verbalizes understanding. 11:42:54 Procedure and supply charges have been captured, reviewed, submitted and are correct. 11:43:30 Procedure Complication : No complications 11:43:32 Vital chart was stopped 11:43:32 See physician's report for complete and final results. 11:44:42 Report given to Pre/Post Procedure Room. 11:44:45 Patient transfered to Pre/Post Procedure Room with Stretcher. 11:44:47 Procedure ended. 11:44:47 Full Disclosure recording stopped 11:44:52 End room use (Document Last) Intervention Summary Intervention Notes Time ActionType Lesion and Equipment Used Action# Pressure Duration Attributes 11:20:48 Discard EMERGE OTW 1.5 Balloon x 20 balloon ([id number]) 11:30:12 Inflate Undefined3 EMERGE OTW 1.5 1 21 00:20 balloon x 20 balloon ([id number]) 11:33:30 Place stent Undefined2 REINA RX 4.0 x 1 21 00:10 22 stent ([id number]) 11:35:48 Inflate Undefined6 EUPHORA 2.0 x 1 13 00:21 balloon 15 Balloon ([id number]) 11:39:06 Place stent Undefined7 REINA OTW 2.25 1 13 00:14 x 08 stent ([id number]) 11:39:19 Reinflate Undefined7 REINA OTW 2.25 2 17 00:11 stent x 08 stent balloon ([id number]) Device Usage Item Name Manufacture Quantity Catalog Number Hospital Part Current Minimal Lot# / Charge Number Stock Stock Serial# Code ACIST Syringe Acist 1 50512 900940 653549 135384 20 (31321) Medical Systems Inc Bag Decanter Microtek 1 786561 82404 379058 5 (2001S) Medical Inc. Medline Cath Medline 1 [id number] 625406 85745 615773 5 Pack ([id number]) DIAGNOSTIC St Vini 1 266897 527229 740423 546706 30 WIRE .035 260cm J wire (869158) ACIST Hand Acist 1 14562 169463 905093 736233 5 Control Medical (71000) Systems Inc ACIST Manifold Acist 1 49017 257788 587443 218193 5 (87976) Medical Systems Inc DIAGNOSTIC Cardinal 1 YN1836 947715 89425 909944 30 Multipack 5Fr Health catheter set (SM0309) Tegaderm 4 x 4 3M 1 1626W 383363 582182 149197 5 (1626W) SHEATH 5FR Terumo 1 GDK394 122223 379218 567435 5 [place] (NWM611) MULTIPACK Cardinal 1 858323 5 Pigtail 5 Fr Health catheter MULTIPACK JL Cardinal 1 875022 5 4.0 5Fr Health catheter MULTIPACK 3DRC Cardinal 1 434144 5 5Fr catheter Health SHEATH 6FR Terumo 1 PZV478 643753 713128 072024 40 [place] (DJN514) INFLATOR Merit Merit 1 JN6431 941076 545677 369768 15 LRN Medical (DY6150) GUIDE 6FR AR Medtronic 1 [id number] 598963 00171 932114 1 2.0 catheter ([id number]) ER XT J Adams 2 [id number] 704432 982844 556274 5 300cm guide Vascular wire ([id number]) EMERGE OTW 1.5 [place] 1 [id number] 881531 359230 721583 5 [id number] x 20 balloon Scientific ([id number]) LASER ELCA 0.9 Shanon 1 110-004 623999 586252 311796 5 Rx atherectomy Healthcare catheter (692527) (605320) REINA RX 4.0 x Medtronic 1 [id number] 076058 2930358 836289 5 [id number] 22 stent ([id number]) EUPHORA 2.0 x Medtronic 1 [id number] 882712 202856 118135 5 [id number] 15 Balloon ([id number]) REINA OTW 2.25 Medtronic 1 [id number] 491981 39103 167892 5 [id number] x 08 stent ([id number]) EXOSEAL 6Fr Cardinal 1 EX600 308806 039778 601736 10 (EX600) Health Signature Audit [place] Stage Time Signature Unsigned Intra-Procedure 05/22/2018 Juanpablo Domingo RT(R) 11:49:02 AM Signatures Monitor : Juanpablo Domingo RT Signature : Date : Time : [place] [id number] [facility] [place] [address]
[2018-05-22 09:26] VITALS: BP 126/66; Ht 175.3 cm; Wt 82.7 kg
[2018-05-22 09:40] LABS: BASOPHILS 0.3 % (0-2); EOSINOPHILS 2.7 % (0-7); HEMATOCRIT 43.2 % (42.0-54.0); HEMOGLOBIN 14.4 g/dL (13.5-17.5); IMMATURE GRANULOCYTES 0.8 % (0-5); LYMPHOCYTES 15.4 % (15-50); MCH 29.3 pg (26.0-34.0); MCHC 33.3 g/dL (31.0-37.0); MEAN PLATELET VOLUME 9.6 fL (7.4-10.4); MONOCYTES 10.3 % (2-11); NEUTROPHILS 70.5 % (40-80); PLATELET COUNT 225 10x3/uL (130-400); RBC 4.91 10x6/uL (4.20-6.10); RDW 13.7 % (11.5-14.5); WBC 7.4 10x3/uL (4.8-10.8)
[2018-05-22 09:48] LABS: CALC OSMOLALITY 287 mosm/kg (275-300); CALCIUM 9.2 mg/dL (8.5-10.1); CARBON DIOXIDE 25.9 mmol/L (21.0-32.0); CHLORIDE - SERUM 107 mmol/L (98-107); GLUCOSE 109 mg/dL (74-106); POTASSIUM - SERUM 4.2 mmol/L (3.5-5.1); SODIUM 142 mmol/L (136-145); UREA NITROGEN 24 mg/dL (7-18); eGFR NON AFRICAN AMERICAN 79 mL/min (90-120)
--- NOTE | 2018-05-28 14:56 | OP ---
PATIENT NAME: ELDER PARKER MEDICAL RECORD: [id number] :48 LOCATION:D.CAT ADMISSION DATE: SURGEON: PEBBLES HILL MD DATE OF OPERATION: 05/22/2018 PROCEDURES: 1. PTCA stent RCA through patent vein graft. 2. Laser atherectomy RCA through patent vein graft. 3. PTCA stent vein graft to RCA. 4. Left heart catheterization. 5. Selective coronary angiography. 6. Vein graft angiography. 7. MARTINEZ angiography. 8. Left ventriculogram. INDICATION: Angina and coronary artery disease. PROCEDURE PERFORMED: After informed consent was obtained and after a detailed description of risks, benefits as well as alternative therapies, the patient elected to proceed with angiogram and angioplasty. The right femoral area was prepped and draped in normal sterile fashion. Right femoral artery was cannulated via modified Seldinger technique with placement of 6-Qatari sheath. All catheters exchanged through this sheath. FINDINGS: Left ventriculogram was performed in standard 30-degree BURCH view, reveals good cardiac wall motion, ejection fraction 50%. SELECTIVE CORONARY ANGIOGRAPHY: 1. Left main is with no significant angiographic disease. 2. Left anterior descending is totally occluded. 3. MARTINEZ to the LAD is widely patent. Distal LAD is small and diffusely diseased, but widely patent. 4. The LAD diagonal has previously placed stents. There is greater than 80% in-stent restenosis in the mid vessel. 5. Left circumflex is small, mild irregularities, but no flow-limiting stenosis. 6. Right coronary artery is totally occluded. 7. Vein graft to the right coronary artery is patent; however, there is a new 80% stenosis proximally in the vein graft, then after this, the right coronary artery is subtotally occluded. PTCA STENT OF THE VEIN GRAFT TO THE RCA: The vein graft was addressed with a 4.0 x 22 Christian stent taken to 21 atmospheres. Result was 0% residual stenosis. We were able to traverse the subtotal area of occlusion in the stockbridge RCA with a Fielder wire, unable to pass any balloon. However, after laser atherectomy, we were able to pass a 1.5 and 2.0 a balloon. Stenting it with a 2.25 x 8 mm Christian stent. Result was 0% residual. IMPRESSION: Successful percutaneous transluminal coronary angioplasty stent of the vein graft to the RCA and the stockbridge RCA itself going from 95% initial stenosis to 0% residual. TRANSINT:[id number] Voice Confirmation ID: [id number] DOCUMENT ID: [id number] OPERATIVE REPORT [id number] ELDER PARKER, PEBBLES OLIVARES at 1456 CC: [id number] DICTATION DATE: 05/22/18 1147 COMPARATOR OPERATOR: 05/22/18 1309 DEP CLI 05/22/18 [address] [place] [address]
== END 2018-05-22 15:55 | disposition home or self-care (01) ==
LOC: D.CATH 08:37
PROVIDERS: Internal Medicine Interventional Cardiology
DX: I25.119 Atherosclerotic heart disease of native coronary artery with unspecified angina pectoris (principal); I10 Essential (primary) hypertension; E78.5 Hyperlipidemia, unspecified; Z01.812 Encounter for preprocedural laboratory examination
CPT/HCPCS: 93459; C9604

== ENCOUNTER 2018-05-29 08:58 | Outpatient (CLI) | payer MEDICARE, BC ==
--- NOTE | 2018-05-28 14:57 | HP ---
PATIENT: ELDER TEJEDA MEDICAL RECORD: [id number] ACCOUNT: [id number] LOCATION:[place] : 48 ADMISSION DATE: 05/29/18 PCP: HISTORY AND PHYSICAL EXAMINATION ADMITTING DIAGNOSES: 1. Angina. 2. Coronary artery disease. 3. Recent percutaneous transluminal coronary angioplasty stent vein graft to right coronary artery with concomitant disease of left anterior descending diagonal in-stent restenosis. 4. Hypertension. 5. Hyperlipidemia. HISTORY OF PRESENT ILLNESS: Mr. Tejeda presents with anginal symptomatology, found to have 2-vessel disease of the vein graft to the RCA, underwent successful intervention. He is now brought back for laser atherectomy, PTCA of the LAD diagonal for in-stent restenosis in this vessel. PHYSICAL EXAMINATION: GENERAL APPEARANCE: Well-nourished, well-developed, appears stated age. Level of distress, comfortable. PSYCHIATRIC: Mental status, alert, normal affect. Orientation, oriented to time, place and person. EYES: Lids and conjunctiva, noninjected. No discharge, no pallor. ENT: Lips, teeth, gums, normal dentition. Oropharynx, no cyanosis, no pallor. NECK: Carotid arteries, bilateral normal upstroke, no bruits, no thrills. JUGULAR VEINS: No jugular venous pressure or distention. CERVICAL LYMPH NODES: Nontender, nonenlarged. THYROID: Not enlarged. Nontender. No nodules. LUNGS: Respiratory effort, unlabored. CHEST: Normal curvature. No thoracic deformity. No chest wall tenderness. Percussion, resonant. Auscultation, clear. No wheezes, no rales, no rhonchi. CARDIOVASCULAR: Precordial exam, nondisplaced. No heaves or pericardial thrills. Rate and rhythm, regular. Heart sounds, normal S1, normal S2. No S3, no gallop, no rub. Systolic murmur, not heard. Diastolic murmur, not heard. EXTREMITIES: No cyanosis, no edema. Peripheral pulses, full and equal in all extremities, except as noted. No bruits appreciated. ABDOMEN: Soft, nondistended. Normal aorta. No bruit. Nontender. No masses. Liver, nontender, no hepatomegaly. Spleen, nontender, no splenomegaly. MUSCULOSKELETAL: No joint tenderness. No joint swelling. No erythema. NEUROLOGICAL: Normal gait, normal strength, normal tone. SKIN: Warm and dry. OVERALL IMPRESSION: Anginal symptomatology with significant disease of the left anterior descending diagonal. We will proceed with transcatheter revascularization of this and this is for 05/29/2018. TRANSINT:[id number] Voice Confirmation ID: [id number] DOCUMENT ID: [id number] HISTORY AND PHYSICAL [id number] ELDER TEJEDA JEFFREY MD at 1457 CC: [id number] DICTATION DATE: 05/28/18 1250 TEXTILES PRINTER: 05/28/18 1301 PRE [facility] [address] [place] [address]
[~2018-05-29] VITALS: Ht 175.3 cm; Wt 83.6 kg
--- NOTE | ~2018-05-29 | HEMODYNAMI ---
PATIENT:ELDER PARKER MEDICAL RECORD: [id number] : 48 LOCATION:[facility]ENG ADMISSION DATE: 05/29/18 Generatedon:05/29/201814:06 Patient name: ELDER PARKER Patient #: [id number] : 1950 Date of study: 05/29/2018 Page: Of Hemodynamic Procedure Report Patient Data Patient Demographics Procedure consent was obtained First Name: ELDER Gender: Male Last Name: ELENA : 1950 [facility] Initial: JOSÉ MIGUEL Age: 68 year(s) Patient #: [id number] Race: SSN: [id number] Additional ID: [id number] Contact details [address]: [address] [place] [address] State: [place] City: [place] Zip code: [address] Past Medical History Allergies Allergen Reaction Date Comments Reported Shellfish 10/17/2014 Other allergy 05/29/2016 Shrimp Shellfish 11/29/2016 Other allergy 11/29/2016 Lipitor Other allergy 09/09/2017 SHRIMP,LIPITOR Other allergy 05/29/2018 Shrimp Admission Admission Data Admission Date: 05/29/2018 Admission Time: 8:58 Height (in.): 69 BSA: 2.02 (m2) Height (cm.): 175.26 BMI: 27.91 (kg/m2) Weight (lbs.): 189 Weight (kg.): 85.73 Procedure Procedure Types Cath Procedure Diagnostic Procedure LHC Coronaries only Sedation Charges Moderate Sedation up to 15 minutes PCI Procedure PTCA PTCA Initial Coronary Atherectomy Atherectomy w/Stent Coronary Initial Procedure Description Procedure Date Procedure Date: 05/29/2018 Procedure Start Time: 13:37 Procedure End Time: 14:01 Procedure Staff Name Function Bc Hanna MD Performing Physician Ashia Foreman RT Monitor Javy Medina RN Nurse Rosa Isela Cordon RT Scrub Procedure Data Cath Procedure Fluoroscopy Diagnostic fluoroscopy Total fluoroscopy Time: 7.8 time: 7.8 min min Diagnostic fluoroscopy Total fluoroscopy dose: dose: 1058 mGy 1058 mGy Contrast Material Contrast Material Type Amount (ml) Isovue 300 83 Entry Location Entry Primary Successful Side Size Upsize Upsize Entry Closure Succes sful Closure Location (Fr) 1 (Fr) 2 (Fr) Remarks Device Remarks Femoral Right 6 Fr Exoseal artery Short Estimated blood loss: 10 ml Diagnostic catheters Device Type Used For End Catheter Placement DIAGNOSTIC AR2 MOD 5 Fr Procedure catheter ([id number]) DIAGNOSTIC MPA-2 5Fr Procedure catheter ([id number]) Procedure Complications No complications Procedure Medications Medication Administration Route Dosage Oxygen etCO2 Nasal cannula 2 l/min Lidocaine 2% added to field 20 Heparin Flush Bag added to field 2 bags (1000units/500ml NS) 0.9% NaCl I.V. 100 ml/hr Versed I.V. 2 mg Fentanyl I.V. 100 mcg Versed I.V. 2 mg Fentanyl I.V. 100 mcg Heparin Bolus I.V. 4000 units Versed I.V. 2 mg Versed I.V. 1 mg Hemodynamics Rest BSA: 2.02 (m2) O2 Consumption: Estimated: 230.19 (ml/min) O2 Consumption indexed : Estimated:113.96 (ml/min/m) Heart Rate: 65 (bpm) Snapshots Pre Cath Intra NCS Post Cath Vital Signs Time Heart Resp SPO2 etCO2 NIBP Rhythm Pain Sedation Rate (ipm) (%) (mmHg) (mmHg) Status Level (bpm) 13:24:06 67 16 98 30 126/77(94) NSR 0 (11) 10(A) , No pain 13:28:14 68 18 95 30.1 118/75(88) NSR 0 (11) 10(A) , No pain 13:32:20 68 15 96 32.3 115/72(90) NSR 0 (11) 10(A) , No pain 13:36:26 68 13 97 31.5 106/71(85) NSR 0 (11) 10(A) , No pain 13:40:27 69 14 93 20.3 125/75(93) NSR 0 (11) 9(A) , No pain 13:44:37 68 15 94 32.3 119/66(84) NSR 0 (11) 9(A) , No pain 13:48:48 69 16 98 35.3 119/65(82) NSR 0 (11) 9(A) , No pain 13:52:57 72 14 98 34.5 115/67(81) NSR 0 (11) 9(A) , No pain 13:57:05 73 23 99 33.8 113/65(80) NSR 0 (11) 9(A) , No pain 14:01:11 73 18 98 13.5 119/68(92) NSR 0 (11) 10(A) , No pain Medications Time Medication Route Dose Verified Delivered Reason Notes Effectiveness by by 13:26:55 Oxygen etCO2 2 Bc Buffie used for Nasal l/min Cyndi Medina RN procedure cannula 13:27:02 Lidocaine 2% added 20ml Bc Bc for local to vial Cyndi Hanna MD anesthetic field 13:27:08 Heparin Flush added 2 Bc Bc used for Bag to bags Cyndi Hanna MD procedure (1000units/500ml field NS) 13:27:15 0.9% NaCl I.V. 100 Bcmustapha Palafox Per physician ml/hr Cyndi Medina RN 13:35:51 Versed I.V. 2 mg Bc Marcosie for sedation Cyndi Medina RN 13:35:56 Fentanyl I.V. 100 Bc Buffie for sedation mcg Cyndi Medina RN 13:38:19 Versed I.V. 2 mg Bc Buffie for sedation Cyndi Medina RN 13:38:23 Fentanyl I.V. 100 Bc Buffie for sedation mcg Cyndi Medina RN 13:41:43 Heparin Bolus I.V. 4000 Bcmustapha Marcosie for verif ied units Cyndi Medina RN anticoagulation with dr hanna 13:48:22 Versed I.V. 2 mg Bc Marcosie for sedation Cyndi Medina RN 13:53:43 Versed I.V. 1 mg Bc Marcosie for sedation Cyndi Medina RN Procedure Log Time Note 13:08:59 Patient Height : 69 inches 13:09:07 Patient Weight : 189 lbs 13:10:02 Diagnostic Cath status Elective 13:10:04 Javy Medina RN sent for patient. Start room use. 13:10:05 Time tracking: Regular hours (M-F 7:00 - 5:00) 13:10:11 Plan of Care:Hemodynamics will remain stable., Cardiac rhythm will remain stable., Comfort level will be maintained., Respiratory function will remain adequate., Patient/ family verbilizes understanding of procedure., Procedure tolerated without complication., Recovers from procedure without complications.. 13:10:59 Patient received from Pre/Post Procedure Room to CCL 2 Alert and oriented. Tansferred to table in Supine position. 13:11:09 Warm blankets applied, and gil hugger turned on for patient comfort. 13:11:10 Correct patient and procedure confirmed by team. 13:11:12 Signed procedure consent form obtained from patient. 13:11:25 H&P Date Dictated: 05/19/2018 Within 30 days and on chart., H&P Addendum completed by physician on day of procedure. (MUST COMPLETE FOR ALL OUTPATIENTS). 13:11:26 Pre-procedure instructions explained to patient. 13:11:28 Family in waiting room. 13:11:30 Patient NPO since Midnight. 13:11:47 Patient allergic to Other allergyShrimp 13:11:51 Is the patient allergic to Iodine/contrast media? Unknown. 13:11:53 Was the patient premedicated? Yes 13:22:35 Is patient on blood thinner?Yes 13:22:39 ACC The patient was administered the following blood thiners within the last 24 hours: ACCEffient 13:22:42 Patient diabetic? No. 13:22:47 Previous problem with sedation/anesthesia? No ? 13:22:50 Snore? Yes 13:22:51 Sleep apnea? Yes 13:22:52 Deviated septum? No 13:22:53 Opens mouth fully? Yes 13:22:54 Sticks out tongue? Yes 13:22:58 Dentures? No ? 13:23:02 ECG and BP/O2 sat monitors applied to patient. 13:23:02 Vital chart was started 13:23:05 Baseline sample Acquired. 13:23:12 Rhythm: sinus rhythm 13:23:14 Full Disclosure recording started 13:23:21 Patient pain scale 0/10 ?. 13:23:28 IV patent on arrival in left forearm with 0.9% NaCl at KVO. 13:23:33 Lab results completed and on chart. 13:23:36 Right groin area was prepped with chlora-prep and draped in sterile fashion 13:23:37 Alarms reviewed by R. N. 13:23:38 Sharps counted by scrub and verified by R.N. 13:23:41 Physician paged 13::55 Oxygen 2 l/min etCO2 Nasal cannula was administered by Javy Medina RN; used for procedure; 13:27:02 Lidocaine 2% 20ml vial added to field was administered by Bc Hanna MD; for local anesthetic; 13:27:08 Heparin Flush Bag (1000units/500ml NS) 2 bags added to field was administered by Bc Hanna MD; used for procedure; 13:27:15 0.9% NaCl 100 ml/hr I.V. was administered by Javy Medina RN; Per physician; 13:30:02 quick combo pads applied to chest 13:32:06 Physician arrived 13:32:07 --------ALL STOP TIME OUT------ 13:32:08 Final Timeout: patient, procedure, and site verified with staff and physician. All members of the team are in agreement. 13:32:10 Right groin site verified by team. 13:32:13 Physical assessment completed. ASA score P 2 - A patient with mild systemic disease as per Bc Hanna MD. 13:32:19 Sedation plan: IV Moderate Sedation Medication:Versed, Fentanyl 13:32:24 Use device set Femoral Dx 13:32:25 ACIST Syringe (69005) opened to sterile field. 13:32:26 Bag Decanter () opened to sterile field. 13:32:28 Medline Cath Pack ([id number]) opened to sterile field. 13:32:28 DIAGNOSTIC WIRE .035 260cm J wire (009666) opened to sterile field. 13:32:29 ACIST Hand Control (52764) opened to sterile field. 13:32:30 ACIST Manifold (57632) opened to sterile field. 13:32:32 Tegaderm 4 x 4 (1626W) opened to sterile field. 13:33:58 SHEATH 6FR [place] (DBF382) opened to sterile field. 13:33:59 INFLATOR Merit BasixCompak (WP4108) opened to sterile field. 13:33:59 CHOICE PT Extra Support 182cm wire ([id number]) opened to sterile field. 13:35:51 Versed 2 mg I.V. was administered by Javy Medina RN; for sedation; 13:35:56 Fentanyl 100 mcg I.V. was administered by Javy Medina RN; for sedation; 13:37:33 Zero performed for pressure channel P1 13:37:42 Procedure started. 13:37:45 Local anesthetic to right femoral artery with Lidocaine 2% by Bc Hanna MD.INITIAL ACCESS ONLY 13:37:54 A 6 Fr Short sheath was inserted into the Right Femoral artery 13:38:19 Versed 2 mg I.V. was administered by Javy Medina RN; for sedation; 13:38:23 Fentanyl 100 mcg I.V. was administered by Javy Medina RN; for sedation; 13:39:18 A DIAGNOSTIC AR2 MOD 5 Fr catheter ([id number]) was advanced over the wire and used for Procedure. 13:40:10 unable to cannulate 13:41:43 Heparin Bolus 4000 units I.V. was administered by Javy Medina RN; for anticoagulation; verified with dr hanna 13:42:30 A DIAGNOSTIC MPA-2 5Fr catheter ([id number]) was advanced over the wire and used for Procedure. 13:42:33 RCA angiography performed. 13:42:37 Catheter removed. 13:44:04 6 Fr xblad guide catheter was inserted over the wire 13:44:15 ch pt ex wire advanced. 13:44:17 Wire advanced across lesion. 13:44:39 GUIDE 6FR XBLAD 3.5 catheter ([id number]) opened to sterile field. 13:44:42 LASER ELCA 0.9 Rx atherectomy catheter (832894) opened to sterile field. 13:45:26 Laser pass to mLAD with Fluence of 80 and Rate of 60. 13:47:24 Laser catheter removed. 13:48:22 Versed 2 mg I.V. was administered by Javy Medina RN; for sedation; 13:49:14 Inflate balloon Inflation number: 1 A EUPHORA 2.5 x 25 Balloon ([id number]) was prepped and advanced across the Mid LAD, then inflated to 17 ELIAS for 0:14 (min:sec). 13:49:32 Inflation number: 2 The EUPHORA 2.5 x 25 Balloon ([id number]) was reinflated across the Mid LAD, to 5 ELIAS for 0:11 (min:sec). 13:51:09 Place stent Inflation Number: 1 A REINA RX 2.0 x 12 stent ([id number]) was prepped and advanced across the Prox CX. The stent was deployed at 19 ELIAS for 0:09 (min:sec). 13:51:23 Inflation number: 3 The stent balloon was then re-inflated across the Mid LAD to 17 ELIAS for 0:00 (min:sec). 13:52:51 CHOICE PT Extra Support 182cm wire ([id number]) opened to sterile field. 13:53:43 Versed 1 mg I.V. was administered by Javy Medina RN; for sedation; 13:53:48 Wire redirected to CX. 13:53:51 Balloon re-inserted over wire. 13:54:30 Inflation number: 2 The stent balloon was then re-inflated across the Prox CX to 21 ELIAS for 0:20 (min:sec). 13:55:00 Balloon removed over the wire. 13:55:01 Wire removed. 13:55:02 Guide catheter removed. 13:55:13 Laser total pulses delivered: 4200 13:55:22 Laser total treatment time: 1 minutes 10 seconds 13:55:38 Sheath removed intact; hemostasis achieved with Exoseal to the Right Femoral artery. 13:55:47 EXOSEAL 6Fr (EX600) opened to sterile field. 13:55:50 Procedure ended.(Physican Out) 13:57:17 Procedure ended.(Physican Out) 13:57:51 Fluoroscopy time 07.80 minutes. 13:57:56 Fluoroscopy dose: 1058 mGy 13:57:56 Flurop Dose total: 1058 13:58:00 Contrast amount:Isovue 300 83ml. 13:58:02 Sharps counted by scrub and verified by R.N. 13:58:04 Insertion/operative site no bleeding no hematoma. 13:58:09 Post right femoral artery:stable 13:58:11 Post Procedure Pulses reassessed and unchanged 13:58:15 Post-procedure physical assessment completed. ASA score P 2 - A patient with mild systemic disease as per Bc Hanna MD. 13:58:18 Post procedure rhythm: sinus rhythm 13:58:23 Estimated blood loss: 10 ml 13:58:25 Post procedure instruction explained to patient.Patient verbalizes understanding. 14:00:38 Procedure type changed to Cath procedure, Diagnostic procedure, LHC, Coronaries only, Sedation Charges, Moderate Sedation up to 15 minutes, PCI procedure, PTCA, PTCA Initial, Coronary Atherectomy, Atherectomy w/Stent Coronary Initial 14:00:40 Procedure and supply charges have been captured, reviewed, submitted and are correct. 14:01:10 Procedure Complication : No complications 14:01:13 Vital chart was stopped 14:01:15 See physician's report for complete and final results. 14:01:17 Report given to Pre/Post Procedure Room. 14:01:31 Patient transfered to Pre/Post Procedure Room with Stretcher. 14:01:34 Procedure ended. 14:01:34 Full Disclosure recording stopped 14:01:39 End room use (Document Last) Intervention Summary Intervention Notes Time ActionType Lesion and Equipment Used Action# Pressure Duration Attributes 13:49:14 Inflate Mid LAD EUPHORA 2.5 x 1 17 00:14 balloon 25 Balloon ([id number]) 13:49:32 Reinflate Mid LAD EUPHORA 2.5 x 2 5 00:11 balloon 25 Balloon ([id number]) 13:51:09 Place stent Prox CX REINA RX 2.0 x 1 19 00:09 12 stent ([id number]) 13:51:23 Reinflate Mid LAD REINA RX 2.0 x 3 17 00:00 stent 12 stent balloon ([id number]) 13:54:30 Reinflate Prox CX REINA RX 2.0 x 2 21 00:20 stent 12 stent balloon ([id number]) Device Usage Item Name Manufacture Quantity Catalog Number Hospital Part Current M inimal Lot# / Charge Number Stock Stock Serial# Code ACIST Syringe Acist 1 88276 012415 377308 627502 2 0 (85160) Medical Systems Inc Bag Decanter Microtek 1 2001S 508372 76417 078768 5 () Medical Inc. Medline Cath Medline 1 [id number] 819734 63843 277924 5 Pack ([id number]) DIAGNOSTIC St Vini 1 396788 422466 598673 960627 3 0 WIRE .035 260cm J wire (059562) ACIST Hand Acist 1 90329 108117 123662 445394 5 Control Medical (30077) Systems Inc ACIST Manifold Acist 1 89928 700217 701738 835127 5 (87646) Medical Systems Inc Tegaderm 4 x 4 3M 1 1626W 843430 794734 335079 5 (1626W) SHEATH 6FR Terumo 1 PZI194 983420 272060 412247 4 0 [place] (KTQ670) INFLATOR Merit Merit 1 IK7552 651980 470494 757506 1 5 [facility] (DD8977) CHOICE PT [place] 2 [id number] 940096 508841 815605 5 Extra Support Scientific 182cm wire ([id number]) DIAGNOSTIC AR2 Cardinal 1 [id number] 304241 096243 994903 2 0 MOD 5 Fr Health catheter ([id number]) DIAGNOSTIC Cardinal 1 [id number] 097771 480020 179167 5 MPA-2 5Fr Health catheter ([id number]) GUIDE 6FR Cardinal 1 [id number] 894206 639898 985530 1 0 XBLAD 3.5 Health catheter ([id number]) LASER ELCA 0.9 Shanon 1 110-004 280576 251896 382036 5 Rx atherectomy Healthcare catheter (166377) (955638) EUPHORA 2.5 x Medtronic 1 [id number] 535671 072684 942456 5 [id number] 25 Balloon ([id number]) REINA RX 2.0 x Medtronic 1 [id number] 209427 4940805 620874 5 [id number] 12 stent ([id number]) EXOSEAL 6Fr Cardinal 1 EX600 024315 510656 682176 1 0 (EX600) Health Signature Audit [place] Stage Time Signature Unsigned Intra-Procedure 05/29/2018 Ashia Foreman 2:06:04 PM RT(R) Signatures Monitor : Ashia Foreman Signature : RT Date : Time : [facility] [address] [facility] [place] [address]
[2018-05-29 09:46] VITALS: BP 125/81; Ht 175.3 cm; Wt 83.6 kg
[2018-05-29 10:01] LABS: BASOPHILS 0.2 % (0-2); EOSINOPHILS 2.7 % (0-7); HEMATOCRIT 44.5 % (42.0-54.0); HEMOGLOBIN 14.8 g/dL (13.5-17.5); IMMATURE GRANULOCYTES 1.8 % (0-5); LYMPHOCYTES 14.7 % (15-50); MCH 29.5 pg (26.0-34.0); MCHC 33.3 g/dL (31.0-37.0); MCV 88.8 fL (80.0-100.0); MEAN PLATELET VOLUME 9.7 fL (7.4-10.4); NEUTROPHILS 70.6 % (40-80); PLATELET COUNT 235 10x3/uL (130-400); RBC 5.01 10x6/uL (4.20-6.10); WBC 8.5 10x3/uL (4.8-10.8)
[2018-05-29 10:12] LABS: ANION GAP 14.4 mmol/L (8-16); CARBON DIOXIDE 26.2 mmol/L (21.0-32.0); CREATININE - SERUM 1.1 mg/dL (0.6-1.3); POTASSIUM - SERUM 4.6 mmol/L (3.5-5.1)
--- NOTE | 2018-06-01 14:36 | OP ---
PATIENT NAME: ELDER PARKER MEDICAL RECORD: [id number] :48 LOCATION:D.CAT ADMISSION DATE: SURGEON: PEBBLES HILL MD DATE OF OPERATION: 05/29/2018 PROCEDURES: 1. Laser atherectomy, LAD diagonal. 2. PTCA and stent, LAD diagonal. 3. PTCA, left circumflex. 4. Selective coronary angiography. INDICATION: Angina and coronary artery disease. PROCEDURE IN DETAIL: After informed consent was obtained with detailed description of risks and benefits as well as alternative therapies, the patient elected to proceed with angiogram and angioplasty. The right femoral area was prepped and draped in normal sterile fashion. Right femoral artery was cannulated via modified Seldinger technique with placement of 6-Uzbek sheath. All catheters were exchanged through this sheath. FINDINGS: The LAD diagonal has previously placed stents. There is up to 80% to 85% in-stent restenosis. This was addressed with a 0.9 laser catheter. Multiple passes were made at 80/40. This then yielded severe intimal dissection. Distal to the stents, it was addressed with a 2.0 x 12-mm Christian. The left circumflex was noted to have plaque formation and in-stent restenosis. At the ostium, up to 85%, the 2.5 balloon was used for this. Result was 0% residual throughout. OVERALL IMPRESSION: Successful laser atherectomy, PTCA, and stent of the LAD diagonal; and successful PTCA of the left circumflex for in-stent restenosis with both going from greater than 80% initial stenosis to 0% residual. TRANSINT:[id number] Voice Confirmation ID: [id number] DOCUMENT ID: [id number] PEBBLES HILL MD at 1436 CC: [id number] DICTATION DATE: 05/29/18 1359 BODY ENGINEER: 05/29/18 2212 DEP CLI 05/29/18 [place] [id number]
== END 2018-05-29 17:50 | disposition home or self-care (01) ==
LOC: D.CATH 08:58
PROVIDERS: Internal Medicine Interventional Cardiology
DX: I25.119 Atherosclerotic heart disease of native coronary artery with unspecified angina pectoris (principal); I10 Essential (primary) hypertension; E78.5 Hyperlipidemia, unspecified; Z95.1 Presence of aortocoronary bypass graft; Z01.812 Encounter for preprocedural laboratory examination
CPT/HCPCS: 92920; C9602

== ENCOUNTER 2018-10-07 07:35 | Outpatient (CLI) | payer MEDICARE, BC ==
[~2018-10-07] VITALS: Ht 175.3 cm; Wt 84.1 kg
--- NOTE | ~2018-10-07 | HEMODYNAMI ---
PATIENT:ELDER PARKER MEDICAL RECORD: [id number] : 48 LOCATION:[facility] ADMISSION DATE: 10/07/18 Generatedon:10/07/20189:30 Patient name: ELDER PARKER Patient #: [id number] : 1950 Date of study: 10/07/2018 Page: Of Hemodynamic Procedure Report Patient Data Patient Demographics Procedure consent was obtained First Name: ELDER Gender: Male Last Name: ELENA : 1950 [facility] Initial: JOSÉ MIGUEL Age: 68 year(s) Patient #: [id number] Race: SSN: [id number] Additional ID: [id number] Contact details Address: [address] [place] [address] State: [place] City: [place] Zip code: [address] Past Medical History Allergies Allergen Reaction Date Comments Reported Shellfish 10/17/2014 Other allergy 05/29/2016 Shrimp Shellfish 11/29/2016 Other allergy 11/29/2016 Lipitor Other allergy 09/09/2017 SHRIMP,LIPITOR Other allergy 05/29/2018 Shrimp Other allergy 10/07/2018 SHRIMP Admission Admission Data Admission Date: 10/07/2018 Admission Time: 7:35 Height (in.): 69 BSA: 2.03 (m2) Height (cm.): 175.26 BMI: 28.5 (kg/m2) Weight (lbs.): 193 Weight (kg.): 87.54 Procedure Procedure Types Cath Procedure Diagnostic Procedure LHC LHC w/Coronaries w/Grafts PCI Procedure PTCA PTCA Initial Coronary Atherectomy Atherectomy w/Stent Coronary Initial Procedure Description Procedure Date Procedure Date: 10/07/2018 Procedure Start Time: 8:51 Procedure End Time: 9:28 Procedure Staff Name Function Bc Hanna MD Performing Physician Redd Quispe RT Monitor Sharita Rubalcava RT Scrub Russ Stephens RN Nurse Procedure Data Cath Procedure Fluoroscopy Diagnostic fluoroscopy Total fluoroscopy Time: time: 14.9 min 14.9 min Diagnostic fluoroscopy Total fluoroscopy dose: 959 dose: 959 mGy mGy Contrast Material Contrast Material Type Amount (ml) Isovue 370 131 Entry Location Entry Primary Successful Side Size Upsize Upsize Entry Closure Succes sful Closure Location (Fr) 1 (Fr) 2 (Fr) Remarks Device Remarks Femoral Right 5 Fr 6 Fr Exoseal artery Short Estimated blood loss: 10 ml Diagnostic catheters Device Type Used For End Catheter Placement MULTIPACK Pigtail 5 Fr Procedure catheter MULTIPACK JL 4.0 5Fr Procedure catheter MULTIPACK 3DRC 5Fr Procedure catheter DIAGNOSTIC AR2 MOD 5 Fr Procedure catheter ([id number]) Procedure Complications No complications Procedure Medications Medication Administration Route Dosage Oxygen etCO2 Nasal cannula 2 l/min Heparin Flush Bag added to field 2 bags (1000units/500ml NS) 0.9% NaCl I.V. 100 ml/hr Fentanyl I.V. 50 mcg Versed I.V. 1 mg Fentanyl I.V. 50 mcg Versed I.V. 1 mg Fentanyl I.V. 50 mcg Heparin Bolus I.V. 5000 units Fentanyl I.V. 50 mcg Hemodynamics Rest BSA: 2.03 (m2) O2 Consumption: Estimated: 234.06 (ml/min) O2 Consumption indexed : Estimated:115.3 (ml/min/m) Heart Rate: 68 (bpm) Snapshots Pre Cath Intra NCS Post Cath Vital Signs Time Heart Resp SPO2 etCO2 NIBP (mmHg) Rhythm Pain Sedation Rate (ipm) (%) (mmHg) Status Level (bpm) 8:33:26 69 17 99 0 152/85(111) NSR 0 (11) 10(A) , No pain 8:38:47 71 16 97 0 164/83(114) NSR 0 (11) 10(A) , No pain 8:43:05 71 17 95 0 142/76(100) NSR 0 (11) 10(A) , No pain 8:47:28 69 17 96 0 135/82(102) NSR 0 (11) 10(A) , No pain 8:51:44 68 17 98 17.1 132/85(105) NSR 0 (11) 10(A) , No pain 8:56:06 69 16 93 23.1 147/72(111) NSR 0 (11) 9(A) , No pain 9:00:24 72 16 97 10.4 137/85(115) NSR 0 (11) 9(A) , No pain 9:04:44 74 16 97 22.3 130/76(95) NSR 0 (11) 9(A) , No pain 9:09:00 77 16 97 11.9 139/83(110) NSR 0 (11) 9(A) , No pain 9:13:22 74 16 98 0 137/72(109) NSR 0 (11) 9(A) , No pain 9:17:40 75 16 97 8.9 135/75(101) NSR 0 (11) 9(A) , No pain 9:21:56 81 17 98 22.3 145/87(112) NSR 0 (11) 9(A) , No pain 9:24:38 78 16 98 13.4 153/87(137) NSR 0 (11) 9(A) , No pain Medications Time Medication Route Dose Verified Delivered Reason Notes Effectiveness by by 8:35:13 Oxygen etCO2 2 Bc Solano Per physician Nasal l/min Cyndi Stephens RN cannula 8:35:21 Heparin Flush added 2 Bc Solano used for Bag to bags Cyndi Stephens RN procedure (1000units/500ml field NS) 8:35:31 0.9% NaCl I.V. 100 Bc Solano Per physician ml/hr Cyndi Stephens RN 8:51:52 Fentanyl I.V. 50 Bc Solano for sedation mcg Cyndi Stephens RN 8:51:58 Versed I.V. 1 mg Bc Solano for sedation Cyndi Stephens RN 8:53:57 Fentanyl I.V. 50 Bc Solano for sedation mcg Cyndi Stephens RN 8:54:01 Versed I.V. 1 mg Bc Solano for sedation Cyndi Stephens RN 8:59:25 Fentanyl I.V. 50 Bc Solano for sedation mcg Cyndi Stephens RN 9:00:56 Heparin Bolus I.V. 5000 Bc Solano for units Cyndi Stephens RN anticoagulation 9:01:33 Fentanyl I.V. 50 Bc Solano for sedation mcg Cyndi Stephens RN Procedure Log Time Note 8:15:07 Russ Stephens RN sent for patient. Start room use. 8:19:27 Signed procedure consent form obtained from patient. 8:19:29 Diagnostic Cath status Elective 8:19:30 Time tracking: Regular hours (M-F 7:00 - 5:00) 8:19:34 Plan of Care:Hemodynamics will remain stable., Cardiac rhythm will remain stable., Comfort level will be maintained., Respiratory function will remain adequate., Patient/ family verbilizes understanding of procedure., Procedure tolerated without complication., Recovers from procedure without complications.. 8:19:43 H&P Date Dictated: 10/06/2018 Within 30 days and on chart., H&P Addendum completed by physician on day of procedure. (MUST COMPLETE FOR ALL OUTPATIENTS). 8:19:55 Patient allergic to Other allergySHRIMP 8:22:07 Patient Weight : 193 lbs 8:22:14 Patient Height : 69 inches 8:27:04 Patient received from Pre/Post Procedure Room to CCL 1 Alert and oriented. Tansferred to table in Supine position. 8:27:05 Warm blankets applied, and gil hugger turned on for patient comfort. 8:27:06 Correct patient and procedure confirmed by team. 8:27:06 ECG and BP/O2 sat monitors applied to patient. 8:32:11 Vital chart was started 8:35:03 Baseline sample Acquired. 8:35:09 Rhythm: sinus rhythm 8:35:10 Full Disclosure recording started 8:35:11 Pre-procedure instructions explained to patient. 8:35:12 Pre-op teaching completed and patient verbalized understanding. 8:35:13 Oxygen 2 l/min etCO2 Nasal cannula was administered by Russ Stephens RN; Per physician; 8:35:21 Heparin Flush Bag (1000units/500ml NS) 2 bags added to field was administered by Russ Stephens RN; used for procedure; 8:35:21 Family in patients room. 8:35:23 Patient NPO since Midnight. 8:35:29 Is the patient allergic to Iodine/contrast media? Yes. 8:35:31 0.9% NaCl 100 ml/hr I.V. was administered by Russ Stephens RN; Per physician; 8:35:34 Was the patient premedicated? Yes 8:36:17 Is patient on blood thinner?Yes 8:36:20 ACC The patient was administered the following blood thiners within the last 24 hours: ACCEffient 8:36:22 Patient diabetic? No. 8:36:24 Previous problem with sedation/anesthesia? No ? 8:36:25 Snore? Yes 8:36:26 Sleep apnea? No 8:36:27 Deviated septum? No 8:36:28 Opens mouth fully? Yes 8:36:28 Sticks out tongue? Yes 8:36:30 Airway obstruction? No ? 8:36:33 Dentures? No ? 8:36:39 Pre procedure: right dorsailis pedis pulse 1+ Palpable, but thready & weak; easily obliterated 8:36:41 Patient pain scale 0/10 ?. 8:36:47 IV patent on arrival in left forearm with 0.9% NaCl at [facility]. 8:36:49 Lab results completed and on chart. 8:36:52 Right groin area was prepped with chlora-prep and draped in sterile fashion 8:36:53 Alarms reviewed by R. N. 8:36:53 Sharps counted by scrub and verified by R.N. 8:36:59 Use device set Femoral Dx 8:37:01 Tegaderm 4 x 4 (1626W) opened to sterile field. 8:37:02 ACIST Manifold (86292) opened to sterile field. 8:37:02 ACIST Hand Control (85334) opened to sterile field. 8:37:03 ACIST Syringe (03135) opened to sterile field. 8:37:04 Bag Decanter (2002S) opened to sterile field. 8:37:04 Medline Cath Pack ([id number]) opened to sterile field. 8:37:06 SHEATH 5FR Dameron (JDY687) opened to sterile field. 8:37:07 DIAGNOSTIC Multipack 5Fr catheter set (YV9530) opened to sterile field. 8:37:08 DIAGNOSTIC WIRE .035 260cm J wire (057017) opened to sterile field. 8:41:36 Physician paged 8:50:56 --------ALL STOP TIME OUT------ 8:50:57 Final Timeout: patient, procedure, and site verified with staff and physician. All members of the team are in agreement. 8:50:59 Right groin site verified by team. 8:51:02 Maximum allowable Isovue 370 dose 300ml. Physician notified. (300ml for normal creatinines. For patients with creatinine of 1.7 or higher multiply weight(kg) x 5 divided by creatinine.) 8:51:07 Fire Safety Assessment: A--An alcohol-based skin anteseptic being used preoperatively., C--Open oxygen or nitrous oxide is being used., D--An ESU, laser, or fiber-optic light is being used. 8:51:10 Physical assessment completed. ASA score P 2 - A patient with mild systemic disease as per Bc Hanna MD. 8:51:12 Sedation plan: IV Moderate Sedation Medication:Versed, Fentanyl 8:51:52 Procedure started. 8:51:52 Fentanyl 50 mcg I.V. was administered by Russ Stephens RN; for sedation; 8:51:55 Local anesthetic to right femoral artery with Lidocaine 2% by Bc Hanna MD.INITIAL ACCESS ONLY 8:51:58 Versed 1 mg I.V. was administered by Russ Stephens RN; for sedation; 8:52:29 Zero performed for pressure channel P1 8:52:45 A 5 Fr sheath was inserted into the Right Femoral artery 8:53:08 A MULTIPACK Pigtail 5 Fr catheter was advanced over the wire and used for Procedure. 8:53:33 LV angiography performed. 8:53:34 LV gram done using BURCH 8:53:42 EF : 50 % 8:53:54 Injector settings: Ml/sec: 10, Volume: 20, 8:53:57 Fentanyl 50 mcg I.V. was administered by Russ Stephens RN; for sedation; 8:54:01 Versed 1 mg I.V. was administered by Russ Stephens RN; for sedation; 8:54:01 Catheter removed. 8:54:07 A MULTIPACK JL 4.0 5Fr catheter was advanced over the wire and used for Procedure. 8:54:26 LCA angiography performed. 8:54:47 Catheter removed. 8:54:50 Use device set [facility] PCI 8:54:58 A MULTIPACK 3DRC 5Fr catheter was advanced over the wire and used for Procedure. 8:55:00 INFLATOR Merit BasixCompak (MB6989) opened to sterile field. 8:55:05 SHEATH 6FR Dameron (OLD432) opened to sterile field. 8:55:08 CHOICE PT Extra Support 182cm wire ([id number]) opened to sterile field. 8:55:17 MARTINEZ to LAD angiography performed. 8:55:46 Catheter removed. 8:56:20 A DIAGNOSTIC AR2 MOD 5 Fr catheter ([id number]) was advanced over the wire and used for Procedure. 8:58:53 SVG to RCA angiography performed. 8:58:56 RCA angiography performed. 8:58:58 Catheter removed. 8:59:04 GUIDE 6FR XBLAD 4.0 catheter ([id number]) opened to sterile field. 8:59:16 Sheath upsized to a 6 Fr Short. 8:59:25 Fentanyl 50 mcg I.V. was administered by Russ Stephens RN; for sedation; 8:59:49 6 Fr XBLAD 4 guide catheter was inserted over the wire 8:59:56 CPTXS wire advanced. 9:00:05 Wire advanced across lesion. 9:00:25 LASER ELCA 0.9 Rx atherectomy catheter (898154) opened to sterile field. 9:00:56 Heparin Bolus 5000 units I.V. was administered by Russ Stephens RN; for anticoagulation; 9:01:16 Laser catheter advanced. 9:01:26 Laser pass to mLAD with Fluence of 80 and Rate of 40. 9:01:33 Fentanyl 50 mcg I.V. was administered by Russ Stephens RN; for sedation; 9:02:34 Laser pass to mLAD with Fluence of 80 and Rate of 40. 9:02:52 Laser pass to mLAD with Fluence of 80 and Rate of 40. 9:03:23 Laser pass to mLAD with Fluence of 80 and Rate of 40. 9:03:42 Laser pass to mLAD with Fluence of 80 and Rate of 40. 9:04:08 Laser catheter removed. 9:05:36 The REINA RX 2.25 x 15 stent ([id number]) was advanced then removed because of failure to cross lesion 9:07:28 Inflate balloon Inflation number: 1 A EUPHORA 2.0 x 15 Balloon ([id number]) was prepped and advanced across the 1st Diag, then inflated to 21 ELIAS for 0:10 (min:sec). 9:07:50 Inflation number: 2 The EUPHORA 2.0 x 15 Balloon ([id number]) was reinflated across the 1st Diag, to 17 ELIAS for 0:10 (min:sec). 9:08:40 Balloon removed over the wire. 9:09:07 Place stent Inflation Number: 3 A REINA RX 2.25 x 15 stent ([id number]) was prepped and advanced across the 1st Diag. The stent was deployed at 17 ELIAS for 0:10 (min:sec). 9:09:22 Inflation number: 4 The stent balloon was then re-inflated across the 1st Diag to 21 ELIAS for 0:10 (min:sec). 9:10:04 Stent catheter was removed intact over wire. 9:10:05 Wire removed. 9:10:07 Guide catheter removed. 9:11:05 GUIDE 6FR MB 1 catheter (LA6MB1) opened to sterile field. 9:11:32 6 Fr MB 1 guide catheter was inserted over the wire 9:12:15 CPTXS 300 wire advanced. 9:13:54 CHOICE PT Extra Support J 300cm guide wire ([id number]) opened to sterile field. 9:17:33 Wire removed. unable to cross lesion. 9:17:40 FIELDER XT J 300cm guide wire ([id number]) opened to sterile field. 9:17:54 Fielder 300 wire advanced. 9:20:22 Wire advanced across lesion. 9:20:26 Inflate balloon Inflation number: 1 A EMERGE OTW 1.5 x 20 balloon ([id number]) was prepped and advanced across the Aorta Right -> Dist RCA, then inflated to 17 ELIAS for 0:10 (min:sec). 9:20:47 Multiple inflations made at 17 Atms. 9:21:14 Balloon removed over the wire. 9:21:15 Wire removed. 9:21:16 Guide catheter removed. 9:22:11 EXOSEAL 6Fr (EX600) opened to sterile field. 9:22:24 Sheath removed intact; hemostasis achieved with Exoseal to the Right Femoral artery. 9:22:26 Procedure ended.(Physican Out) 9:23:32 Laser total pulses delivered: 4021 9:23:45 Laser total treatment time: 1 minutes 39 seconds 9:23:59 Fluoroscopy time 14.90 minutes. 9:24:02 Fluoroscopy dose: 959 mGy 9:24:02 Flurop Dose total: 959 9:24:07 Contrast amount:Isovue 370 131ml. 9:24:09 Sharps counted by scrub and verified by R.N. 9:24:10 Insertion/operative site no bleeding no hematoma. 9:24:13 Post-op/insertion site Right Femoral artery dressed using a 4 x 4 and Tegaderm. 9:24:14 Post Procedure Pulses reassessed and unchanged 9:24:16 Post-procedure physical assessment completed. ASA score P 2 - A patient with mild systemic disease as per Bc Hanna MD. 9:24:19 Post procedure rhythm: unchanged. 9:24:21 Estimated blood loss: 10 ml 9:24:22 Post procedure instruction explained to patient.Patient verbalizes understanding. 9:24:23 Patient needs reinforcement of post procedure teaching. 9:24:49 Procedure type changed to Cath procedure, Diagnostic procedure, LHC, LHC w/Coronaries w/Grafts, PCI procedure, PTCA, PTCA Initial, Coronary Atherectomy, Atherectomy w/Stent Coronary Initial 9:26:12 Procedure and supply charges have been captured, reviewed, submitted and are correct. 9:26:14 Procedure Complication : No complications 9:27:47 Vital chart was stopped 9:27:48 See physician's report for complete and final results. 9:27:57 Report given to Pre/Post Procedure Room. 9:28:03 Patient transfered to Pre/Post Procedure Room with Stretcher. 9:28:05 Procedure ended. 9:28:05 Full Disclosure recording stopped 9:28:09 End room use (Document Last) Intervention Summary Intervention Notes Time ActionType Lesion and Equipment Used Action# Pressure Duration Attributes 9:05:36 Discard REINA RX 2.25 x Stent 15 stent ([id number]) 9:07:28 Inflate 1st Diag EUPHORA 2.0 x 1 21 00:10 balloon 15 Balloon ([id number]) 9:07:50 Reinflate 1st Diag EUPHORA 2.0 x 2 17 00:10 balloon 15 Balloon ([id number]) 9:09:07 Place stent 1st Diag REINA RX 2.25 x 3 17 00:10 15 stent ([id number]) 9:09:22 Reinflate 1st Diag REINA RX 2.25 x 4 21 00:10 stent 15 stent balloon ([id number]) 9:20:26 Inflate Aorta Right EMERGE OTW 1.5 1 17 00:10 balloon -> Dist RCA x 20 balloon ([id number]) Device Usage Item Name Manufacture Quantity Catalog Number Hospital Part Current Minimal Lot# / Charge Number Stock Stock Serial# Code Tegaderm 4 x 4 3M 1 1626W [id number] 862971 925749 5 (1626W) ACIST Manifold Acist 1 58582 054607 593802 153794 5 (58846) Medical Systems Inc ACIST Hand Acist 1 99722 078157 515993 174853 5 Control Medical (50653) Systems Inc ACIST Syringe Acist 1 38367 958555 472925 940040 20 (75639) Medical Systems Inc Bag Decanter Microtek 1 2001S 571316 38455 092919 5 (2001S) Medical Inc. Medline Cath Medline 1 [id number] 631052 09810 046084 5 Pack ([id number]) SHEATH 5FR Terumo 1 DNU464 917495 545586 198877 5 Dameron (QKS084) DIAGNOSTIC Cardinal 1 ML5997 224506 16520 993736 30 Multipack 5Fr Health catheter set (FW4792) DIAGNOSTIC St Vini 1 484514 699214 284080 049133 30 WIRE .035 260cm J wire (727603) MULTIPACK Cardinal 1 488182 5 Pigtail 5 Fr Health catheter MULTIPACK JL Cardinal 1 487434 5 4.0 5Fr Health catheter MULTIPACK 3DRC Cardinal 1 124661 5 5Fr catheter Health INFLATOR Merit Merit 1 OG0276 698085 340564 279088 15 15Five Medical (RC4319) SHEATH 6FR Terumo 1 DMI202 371416 973299 331555 40 Dameron (MBG046) CHOICE PT Jordan 1 [id number] 896025 665718 079010 5 Extra Support Scientific 182cm wire ([id number]) DIAGNOSTIC AR2 Cardinal 1 [id number] 529242 188358 724801 20 MOD 5 Fr Health catheter (635021A) GUIDE 6FR Cardinal 1 78430673 629693 257072 379956 3 XBLAD 4.0 Health catheter (05739898) LASER ELCA 0.9 Shanon 1 110-004 205231 162263 328306 5 Rx atherectomy Healthcare catheter (482381) (378772) REINA RX 2.25 x Medtronic 1 [id number] 069278 8717993 849395 5 [id number] 15 stent ([id number]) EUPHORA 2.0 x Medtronic 1 [id number] 804715 279377 308747 5 [id number] 15 Balloon ([id number]) GUIDE 6FR MB 1 Medtronic 1 LA6MB1 038050 46449 808705 1 catheter (LA6MB1) CHOICE PT Jordan 1 [id number] 712385 995967 669934 5 Extra Support Scientific J 300cm guide wire (1737697J3) FIELDER XT J Adams 1 [id number] 871007 335791 140883 5 300cm guide Vascular wire ([id number]) EMERGE OTW 1.5 Jordan 1 [id number] 906383 761993 814337 5 [id number] x 20 balloon Scientific ([id number]) EXOSEAL 6Fr Cardinal 1 EX600 196565 191497 483425 10 (EX600) Health Signature Audit [place] Stage Time Signature Unsigned Intra-Procedure 10/07/2018 Redd Quispe 9:30:33 AM RT(R) Signatures Monitor : Redd Quispe RT Signature : Date : Time : [address] [address]
[2018-10-07] MEDS ORDERED: TOPROL XL25 MG PO (07:51)
[2018-10-07 08:08] VITALS: BP 140/78; Ht 175.3 cm; Wt 84.1 kg
[2018-10-07 08:19] LABS: BASOPHILS 0.4 % (0-2); HEMATOCRIT 45.3 % (42.0-54.0); HEMOGLOBIN 15.4 g/dL (13.5-17.5); IMMATURE GRANULOCYTES 1.3 % (0-5); LYMPHOCYTES 17.3 % (15-50); MCH 29.5 pg (26.0-34.0); MCV 86.8 fL (80.0-100.0); MEAN PLATELET VOLUME 9.4 fL (7.4-10.4); MONOCYTES 7.8 % (2-11); NEUTROPHILS 69.2 % (40-80); PLATELET COUNT 223 10x3/uL (130-400); RBC 5.22 10x6/uL (4.20-6.10); RDW 13.6 % (11.5-14.5); WBC 8.5 10x3/uL (4.8-10.8)
[2018-10-07 08:33] LABS: CALC OSMOLALITY 282 mosm/kg (275-300); CALCIUM 9.6 mg/dL (8.5-10.1); CARBON DIOXIDE 27.4 mmol/L (21.0-32.0); CHLORIDE - SERUM 106 mmol/L (98-107); GLUCOSE 114 mg/dL (74-106); POTASSIUM - SERUM 4.2 mmol/L (3.5-5.1); SODIUM 141 mmol/L (136-145); UREA NITROGEN 14 mg/dL (7-18); eGFR NON AFRICAN AMERICAN 79 mL/min (90-120)
--- NOTE | 2018-10-07 09:40 | NUR ---
PT ARRIVED BY STRETCHER. FAMILY AT BEDSIDE. PLACED PT ON MONITORS. VSS. RIGHT GROIN DRESSING C/D/I. NO S/S OF HEMATOMA NOTED. CALL LIGHT WITHIN REACH.
--- NOTE | 2018-10-07 09:55 | NUR ---
PT RESTING COMFORTABLY. RIGHT GROIN DRESSING C/D/I. NO S/S OF HEMATOMA NOTED. RIGHT PEDAL PULSE PALPABLE. VSS. FAMILY AT BEDSIDE. PT DENIES NAUSEA. GIVEN SPRITE TO DRINK AND A TURKEY SANDWICH.
--- NOTE | 2018-10-07 10:25 | NUR ---
PT RESTING COMFORTABLY. RIGHT GROIN DRESSING C/D/I. NO S/S OF HEMATOMA NOTED. VSS. NO NEEDS AT THIS TIME.
--- NOTE | 2018-10-07 10:59 | NUR ---
PT IN SUPINE POSITION. PT'S AT BEDSIDE ASSISTING WITH FEEDING HIM HIS SANDWICH. DENIES NAUSEA. VSS. RIGHT GROIN DRESSING C/D/I. NO S/S OF HEMATOMA NOTED. CALL LIGHT WITHIN REACH.
--- NOTE | 2018-10-07 11:35 | NUR ---
PT RESTING COMFORTABLY. VSS. RIGHT GROIN DRESSING C/D/I. NO S/S OF HEMATOMA NOTED. DENIES PAIN/NAUSEA.
--- NOTE | 2018-10-07 11:55 | NUR ---
DR. HILL ROUNDED AND SPOKE WITH PT AND PT'S FAMILY.
--- NOTE | 2018-10-07 12:38 | NUR ---
RIGHT GROIN DRESSING C/D/I. NO S/S OF HEMATOMA NOTED. PT VOIDED IN URINAL WITHOUT DIFFICULTY. VSS. PT'S FAMILY AT BEDSIDE.
--- NOTE | 2018-10-07 13:03 | NUR ---
RIGHT GROIN DRESSING C/D/I. NO S/S OF HEMATOMA NOTED. LEFT ARM PIV D/C'D WITH CATH TIP INTACT. PT TOLERATED WELL. DID C/O PAIN WITH TAPE REMOVAL FROM IV SITE, BUT USED ALCOHOL PREP TO HELP WITH REMOVAL. PT INSTRUCTED TO GET UP AND DRESSED. FAMILY AT BEDSIDE FOR ASSISTANCE.
--- NOTE | 2018-10-07 13:20 | NUR ---
PT DRESSED. RIGHT GROIN DRESSING C/D/I. NO S/S OF HEMATOMA NOTED. DISCUSSED DISCHARGE INSTRUCTIONS WITH PT AND PT'S FAMILY. THEY VOICED UNDERSTANDING.
--- NOTE | 2018-10-07 13:27 | NUR ---
PT TAKEN OUT TO VEHICLE BY WHEELCHAIR. NO S/S OF DISTRESS NOTED. ALL BELONGINGS AND PAPERWORK IN HAND.
--- NOTE | 2018-10-09 16:41 | OP ---
PATIENT NAME: ELDER PARKER MEDICAL RECORD: [id number] :48 LOCATION:D.CAT ADMISSION DATE: SURGEON: PEBBLES HILL MD DATE OF OPERATION: 10/07/2018 PROCEDURES: 1. Laser atherectomy LAD. 2. PTCA stent LAD. 3. PTCA to RCA through patent vein graft. 4. Left heart catheterization. 5. Selective coronary angiography. 6. Left ventriculogram. 7. Vein graft angiography. 8. MARTINEZ angiography. PROCEDURE IN DETAIL: After informed consent was obtained and after a detailed description of risks, benefits as well as alternative therapies, the patient elected to proceed with angiogram and angioplasty. The right femoral area was prepped and draped in normal sterile fashion. Right femoral artery was cannulated via modified Seldinger technique with placement of 6-Hungarian sheath. All catheters exchanged through this sheath. FINDINGS: Left ventriculogram was performed in standard 30-degree BURCH view, reveals good cardiac wall motion throughout all segments. Overall ejection fraction estimated at 55% to 60%. SELECTIVE CORONARY ANGIOGRAPHY: 1. Left main is with no significant angiographic disease. 2. Left anterior descending is totally occluded; however, there is a relatively large LAD diagonal that has multiple previously placed stents with 99% in-stent restenosis in the stents. 3. The left circumflex has previously placed stents, these are widely patent with no significant restenosis. No disease elsewise throughout the circumflex. 4. Right coronary is totally occluded. 5. Vein graft to the right coronary is patent; however, after this, the previously placed stents in the distal RCA are 99% stenosis. 6. MARTINEZ to the LAD is widely patent. Distal LAD is widely patent. Laser atherectomy, PTCA stent of the LAD diagonal: The laser catheter used was 0.9. Multiple passes were made at 80/40. Stenting was undertaken with a 2.25 x 15 mm [place]. Result was 0% residual stenosis. PTCA OF THE RCA: Through the patent vein graft, we were able to advance a 1.5 balloon to the area of 99% stenosis. This did reestablish flow down the distal RCA; however, the lesion leading into the PDA was basically 100%, this could not be crossed. OVERALL IMPRESSION: Successful laser atherectomy, PTCA stent of the LAD diagonal. IMPRESSION: Successful PTCA of the distal RCA, both going from 99% initial stenosis to 0% residual. TRANSINT:[id number] Voice Confirmation ID: [id number] DOCUMENT ID: [id number] OPERATIVE REPORT [id number] ELDER PARKER, PEBBLES OLIVARES at 1641 CC: [id number] DICTATION DATE: 10/07/18925 CRACKING STILL OPERATOR: 10/07/1855 DEP CLI 10/07/[address] [address]
== END 2018-10-07 13:27 | disposition home or self-care (01) ==
LOC: D.CATH 07:35
PROVIDERS: ATTEND Internal Medicine Interventional Cardiology
DX: I25.110 Atherosclerotic heart disease of native coronary artery with unstable angina pectoris (principal)
CPT/HCPCS: 92937; 93459; C9602

== ENCOUNTER 2019-02-05 08:09 | Outpatient (CLI) | payer MEDICARE, BC ==
[~2019-02-05] VITALS: Ht 175.3 cm; Wt 85.0 kg
--- NOTE | ~2019-02-05 | HEMODYNAMI ---
PATIENT:ELDER PARKER MEDICAL RECORD: [id number] : 48 LOCATION:DLjCAT ADMISSION DATE: 02/05/19 Generatedon:02/05/201911:22 Patient name: ELDER PARKER Patient #: [id number] : 1950 Date of study: 02/05/2019 Page: Of Hemodynamic Procedure Report Patient Data Patient Demographics Procedure consent was obtained First Name: ELDER Gender: Male Last Name: ELENA : 1950 [facility] Initial: JOSÉ MIGUEL Age: 68 year(s) Patient #: [id number] Race: SSN: [id number] Additional ID: [id number] Contact details Address: [address] [place] [address] State: [place] City: [place] Zip code: [address] Past Medical History Allergies Allergen Reaction Date Comments Reported Shellfish 10/17/2014 Other allergy 05/29/2016 Shrimp Shellfish 11/29/2016 Other allergy 11/29/2016 Lipitor Other allergy 09/09/2017 SHRIMP,LIPITOR Other allergy 05/29/2018 Shrimp Other allergy 10/07/2018 SHRIMP Other allergy 02/05/2019 shrimp Admission Admission Data Admission Date: 02/05/2019 Admission Time: 8:09 Arrival Date: 02/05/2019 Arrival Time: 0:00 Admit Source: Other Insurance Payor: Medicare, Private health insurance [facility] #: [id number] Height (in.): 68.9 BSA: 2.01 (m2) Height (cm.): 175 BMI: 27.76 (kg/m2) Weight (lbs.): 187.39 Weight (kg.): 85 Lab Results Lab Result Date: 02/05/2019 Lab Result Time: 8:35 Biochemistry Name Units Result Min Max BUN mg/dl 15 --(--*-)-- 7 18 Creatinine mg/dl 1.3 --(---*)-- 0.6 1.3 CBC Name Units Result Min Max Hematocrit % 41.9 -*(----)-- 42 54 Hemoglobin g/dl 14.4 --(*---)-- 13.5 17.5 Procedure Procedure Types Cath Procedure Diagnostic Procedure [facility] w/Coronaries w/Grafts Sedation Charges Moderate Sedation up to 30 minutes PCI Procedure Coronary Atherectomy Atherectomy w/PTCA Coronary Initial Procedure Description Procedure Date Procedure Date: 02/05/2019 Procedure Start Time: 10:38 Procedure End Time: 11:09 Procedure Staff Name Function Bc Hanna MD Performing Physician Jose Eduardo Zavala RN Nurse [facility]i RT Monitor Rosa Isela Cordon RT Scrub Procedure Data Cath Procedure Fluoroscopy Diagnostic fluoroscopy Total fluoroscopy Time: time: 11.2 min 11.2 min Diagnostic fluoroscopy Total fluoroscopy dose: dose: 1304 mGy 1304 mGy Contrast Material Contrast Material Type Amount (ml) Isovue 300 124 Entry Location Entry Primary Successful Side Size Upsize Upsize Entry Closure Succes sful Closure Location (Fr) 1 (Fr) 2 (Fr) Remarks Device Remarks Femoral Right 5 Fr 6 Fr Exoseal artery Short Estimated blood loss: 10 ml Diagnostic catheters Device Type Used For End Catheter Placement MULTIPACK Pigtail 5 Fr Procedure catheter MULTIPACK JL 4.0 5Fr Procedure catheter MULTIPACK 3DRC 5Fr Procedure catheter DIAGNOSTIC AR2 MOD 5 Fr Procedure catheter ([id number]) Procedure Complications No complications Procedure Medications Medication Administration Route Dosage 0.9% NaCl I.V. 100 ml/hr Oxygen etCO2 Nasal cannula 2 l/min Heparin Flush Bag added to field 2 bags (1000units/500ml NS) Lidocaine 2% added to field 20 Versed I.V. 2 mg Fentanyl I.V. 100 mcg Versed I.V. 2 mg Fentanyl I.V. 50 mcg Heparin Bolus I.V. 5000 units Fentanyl I.V. 50 mcg Hemodynamics Rest BSA: 2.01 (m2) HGB: 14.4 (g/dl) O2 Consumption: Estimated: 229.8 (ml/min) O2 Con sumption indexed: Estimated:114.33 (ml/min/m) Heart Rate: 66 (bpm) Pressure Samples Time Site Value (mmHg) Purpose Heart Use Rate(bpm) 10:41 LV 99/8,11 Snapshot 71 10:41 LV 99/8,12 EDP 71 Snapshots Pre Cath Intra NCS Post Cath Vital Signs Time Heart Resp SPO2 etCO2 NIBP Rhythm Pain Sedation Rate (ipm) (%) (mmHg) (mmHg) Status Level (bpm) 10:10:19 67 19 98 26.3 114/64(84) NSR 0 (11) 10(A) , No pain 10:16:03 67 12 98 17.2 108/62(74) NSR 0 (11) 10(A) , No pain 10:20:11 68 13 96 30.8 117/67(88) NSR 0 (11) 10(A) , No pain 10:24:21 69 17 97 30 117/65(77) NSR 0 (11) 10(A) , No pain 10:28:28 69 13 97 24 107/68(80) NSR 0 (11) 10(A) , No pain 10:32:34 70 12 96 0 104/68(85) NSR 0 (11) 10(A) , No pain 10:36:38 69 12 97 8.2 107/69(88) NSR 0 (11) 10(A) , No pain 10:40:44 84 11 97 12.7 104/62(78) NSR 0 (11) 10(A) , No pain 10:44:50 72 11 96 0 106/60(87) NSR 0 (11) 9(A) , No pain 10:48:56 72 12 95 9.7 111/60(91) NSR 0 (11) 9(A) , No pain 10:53:03 71 11 97 9.7 111/62(86) NSR 0 (11) 9(A) , No pain 10:57:09 75 11 98 10.5 111/62(81) NSR 0 (11) 9(A) , No pain 11:01:13 74 13 97 11.2 118/69(97) NSR 0 (11) 9(A) , No pain 11:05:18 73 12 98 9.7 139/73(94) NSR 0 (11) 10(A) , No pain 11:09:27 72 13 97 15.8 129/77(99) NSR 0 (11) 10(A) , No pain Medications Time Medication Route Dose Verified Delivered Reason Notes Effectiveness by by 10:09:23 0.9% NaCl I.V. 100 Jose Eduardo Jose Eduardo Per physician ml/hr Sally Zavala RN RN 10:09:37 Oxygen etCO2 2 Jose Eduardo Jose Eduardo for low 02 sats Nasal l/min Sally Zavala cannula RN RN 10:09:48 Heparin Flush added 2 Jose Eduardo Jose Eduardo used for Bag to bags Sally Zavala procedure (1000units/500ml field RN RN NS) 10:10:00 Lidocaine 2% added 20ml Jose Eduardo Jose Eduardo for local to vial Lorsylvia Zavala anesthetic field RN RN 10:37:02 Versed I.V. 2 mg Jose Eduardo Jose Eduardo for sedation Sally Zavala RN RN 10:37:10 Fentanyl I.V. 100 Jose Eduardo Jose Eduardo for sedation mcg Sally Zavala RN RN 10:39:25 Versed I.V. 2 mg Jose Eduardo Jose Eduardo for sedation Sally Zavala RN RN 10:39:41 Fentanyl I.V. 50 Jose Eduardo Jose Eduardo for sedation mcg Sally Zavala RN RN 10:51:52 Heparin Bolus I.V. 5000 Jose Eduardo Jose Eduardo for units Sally Zavala anticoagulation RN RN 11:00:00 Fentanyl I.V. 50 Jose Eduardo Jose Eduardo for sedation mcg Sally Zavala RN mounted police officer Log Time Note 9:46:09 Informed consent obtained and on chart 9:46:20 Diagnostic Cath Status : Elective 9:55:53 ACC Patient presents with Stable Angina CCS Anginal Class 2--Slight limitation of ordinary activity. 9:55:58 Procedure Status Elective Heart Cath (OP). 9:56:03 [place] RT(R) sent for patient. Start room use. 9:56:29 Time tracking: Regular hours (M-F 7:00 - 5:00) 9:56:39 Plan of Care:Hemodynamics will remain stable., Cardiac rhythm will remain stable., Comfort level will be maintained., Respiratory function will remain adequate., Patient/ family verbilizes understanding of procedure., Procedure tolerated without complication., Recovers from procedure without complications.. 10:04:08 Patient received from Pre/Post Procedure Room to CCL 2 Alert and oriented. Tansferred to table in Supine position. 10:04:09 Warm blankets applied, and gil hugger turned on for patient comfort. 10:04:10 Correct patient and procedure confirmed by team. 10:04:11 ECG and BP/O2 sat monitors applied to patient. 10:05:34 H&P Date Dictated: 02/03/2019 Within 30 days and on chart., H&P Addendum completed by physician on day of procedure. (MUST COMPLETE FOR ALL OUTPATIENTS). 10:05:37 Pre-procedure instructions explained to patient. 10:05:37 Pre-op teaching completed and patient verbalized understanding. 10:06:21 Family in waiting room. 10:06:26 Patient NPO since Midnight. 10:06:43 Patient allergic to Other allergyshrimp 10:06:47 Is patient on blood thinner?Yes 10:07:04 ACC The patient was administered the following blood thiners within the last 24 hours: ACCAspirin, ACCEffient 10:07:22 Patient diabetic? No. 10:07:37 Previous problem with sedation/anesthesia? No ? 10:07:41 Snore? Yes 10:07:42 Sleep apnea? No 10:07:43 Deviated septum? No 10:07:43 Opens mouth fully? Yes 10:07:44 Sticks out tongue? Yes 10:07:46 Airway obstruction? No ? 10:07:49 Dentures? No ? 10:07:53 Pre procedure: right dorsailis pedis pulse 2+ Normal; easily identifiable; not easily obliterated 10:07:59 IV patent on arrival in left forearm with 0.9% NaCl at [facility]. 10:09:07 Lab Result : BUN 15 mg/dl 10:09:07 Lab Result : Creatinine 1.3 mg/dl 10:09:07 Lab Result : Hemoglobin 14.4 g/dl 10:09:07 Lab Result : Hematocrit 41.9 % 10:09:10 Lab results completed and on chart. 10:09:13 Right groin area was prepped with chlora-prep and draped in sterile fashion 10:09:13 Alarms reviewed by R. N. 10:09:14 Sharps counted by scrub and verified by R.N. 10:09:23 0.9% NaCl 100 ml/hr I.V. was administered by Jose Eduardo Zavala RN; Per physician; 10:09:28 Use device set Femoral Dx 10:09:29 ACIST Syringe (72339) opened to sterile field. 10:09:29 Bag Decanter (2002S) opened to sterile field. 10:09:29 Medline Cath Pack ([id number]) opened to sterile field. 10:09:30 ACIST Hand Control (45308) opened to sterile field. 10:09:31 ACIST Manifold (66707) opened to sterile field. 10:09:31 DIAGNOSTIC Multipack 5Fr catheter set ([id number]) opened to sterile field. 10:09:32 Tegaderm 4 x 4 (1626W) opened to sterile field. 10:09:32 SHEATH 5FR [place] (FXG742) opened to sterile field. 10:09:34 EMERALD Guide Wire (073-043) opened to sterile field. 10:09:37 Oxygen 2 l/min etCO2 Nasal cannula was administered by Jose Eduardo Zavala RN; for low 02 sats; 10:09:38 Vital chart was started 10:09:39 Baseline sample Acquired. 10:09:43 Rhythm: sinus rhythm 10::44 Full Disclosure recording started 10:09:48 Heparin Flush Bag (1000units/500ml NS) 2 bags added to field was administered by Jose Eduardo Zavala RN; used for procedure; 10:10:00 Lidocaine 2% 20ml vial added to field was administered by Jose Eduardo Zavala RN; for local anesthetic; 10:28:11 Zero performed for pressure channel P1 10:28:16 Zero performed for pressure channel P1 10:28:19 Zero performed for pressure channel P1 10:30:26 ACCPatient has been prescribed/administered the following anti-anginal medication within the last 2 weeks: Beta Jeyson 10:32:10 Physician arrived 10:32:11 --------ALL STOP TIME OUT------ 10:32:11 Final Timeout: patient, procedure, and site verified with staff and physician. All members of the team are in agreement. 10:32:12 Right groin site verified by team. 10:32:15 Fire Safety Assessment: A--An alcohol-based skin anteseptic being used preoperatively., C--Open oxygen or nitrous oxide is being used., D--An ESU, laser, or fiber-optic light is being used. 10:32:18 Physical assessment completed. ASA score P 2 - A patient with mild systemic disease as per Bc Hanna MD. 10:32:22 3a) 45-59 Moderately reduced kidney function. 10:32:24 Maximum allowable contrast dose (3.7 X eGFR X 0.75)161 ml. 10:32:27 Sedation plan: IV Moderate Sedation Medication:Versed, Fentanyl 10:37:02 Versed 2 mg I.V. was administered by Jose Eduardo Zavala RN; for sedation; 10:37:10 Fentanyl 100 mcg I.V. was administered by Jose Eduardo Zavala RN; for sedation; 10:38:07 Procedure started. 10:38:09 Local anesthetic to right femoral artery with Lidocaine 2% by Bc Hanna MD.INITIAL ACCESS ONLY 10:39:25 Versed 2 mg I.V. was administered by Jose Eduardo Zavala RN; for sedation; 10:39:41 Fentanyl 50 mcg I.V. was administered by Jose Eduardo Zavala RN; for sedation; 10:40:10 A 5 Fr sheath was inserted into the Right Femoral artery 10:40:15 A MULTIPACK Pigtail 5 Fr catheter was advanced over the wire and used for Procedure. 10:42:05 LV gram done using BURCH 10:42:13 Injector settings: Ml/sec: 10, Volume: 20, 10:42:14 LV hemodynamics recorded. 10:42:18 EF : 55 % 10:42:22 Catheter exchanged over wire. 10:42:28 A MULTIPACK JL 4.0 5Fr catheter was advanced over the wire and used for Procedure. 10:42:48 LCA angiography performed. 10:43:10 LASER ELCA 0.9 Rx atherectomy catheter (280695) opened to sterile field. 10:43:10 CHOICE PT Extra Support 182cm wire ([id number]) opened to sterile field. 10:43:11 INFLATOR Merit BasixCompak (CQ0433) opened to sterile field. 10:43:20 SHEATH 6FR [place] (PZJ477) opened to sterile field. 10:43:20 GUIDE 6FR XBLAD 4.0 catheter ([id number]) opened to sterile field. 10:43:23 Catheter exchanged over wire. 10:43:27 A MULTIPACK 3DRC 5Fr catheter was advanced over the wire and used for Procedure. 10:43:49 MARTINEZ to LAD angiography performed. 10:44:19 Catheter exchanged over wire. 10:44:25 A DIAGNOSTIC AR2 MOD 5 Fr catheter ([id number]) was advanced over the wire and used for Procedure. 10:45:30 ACCDominant side:Co-Dominant 10:47:23 Catheter removed. unable to cannulate vessel. 10:47:37 GUIDE 6FR MB 1 catheter (LA6MB1) opened to sterile field. 10:48:22 Sheath upsized to a 6 Fr Short. 10:48:25 6 Fr MB I guide catheter was inserted over the wire 10:50:00 Pre PCI Site: Vein Graft dRCA has 99% stenosis. 10:50:04 RCA angiography performed. 10:50:46 ACC Pre-intervention ANIL Flow is 2. 10:51:22 FIELDER XT J 300cm guide wire ([id number]) opened to sterile field. 10:51:52 Heparin Bolus 5000 units I.V. was administered by Jose Eduardo Zavala RN; for anticoagulation; 10:53:31 fielder wire advanced. 10:55:35 Wire advanced across lesion. 10:56:13 The EMERGE OTW 1.5 x 15 balloon ([id number]) was advanced and then removed because of failure to cross lesion 10:56:14 Wire removed. 10:56:16 Guide catheter removed. 10:56:21 6 Fr xblad 4 guide catheter was inserted over the wire 10:58:00 Post PCI Site: Vein Graft dRCA has 99% stenosis. 10:58:45 ACC Post-intervention ANIL Flow is 2. 10:59:05 Pre PCI Site: Teller Diag1 has 95% stenosis. 10:59:06 choice pt es wire advanced. 10:59:31 ACC Pre-intervention ANIL Flow is 3. 11:00:00 Fentanyl 50 mcg I.V. was administered by Jose Eduardo Zavala RN; for sedation; 11:00:08 Inflate balloon Inflation number: 1 A EUPHORA 2.5 x 20 Balloon ([id number]) was prepped and advanced across the 1st Diag , then inflated to 17 ELIAS for 0:10 (min:sec) . 11:00:15 Inflation number: 2 The EUPHORA 2.5 x 20 Balloon ([id number]) was reinflated across the 1st Diag , to 21 ELIAS for 0:10 (min:sec) . 11:00:38 Balloon removed over the wire. 11:00:45 ACT drawn and resulted at 238 seconds. (normal therapeutic range 180-240 seconds). 11:01:16 Elca Laser 0.9 mm RX advanced over wire. 11:02:13 Laser pass to Diag1 with Fluence of 80 and Rate of 40. 11:04:39 Laser catheter removed. 11:05:38 Inflation number: 3 The EUPHORA 2.5 x 20 Balloon ([id number]) was reinflated across the 1st Diag , to 23 ELIAS for 0:10 (min:sec) . 11:05:43 ACC Post-intervention ANIL Flow is 3. 11:05:54 Inflation number: 4 The EUPHORA 2.5 x 20 Balloon ([id number]) was reinflated across the 1st Diag , to 23 ELIAS for 0:10 (min:sec) . 11:06:19 Balloon removed over the wire. 11:06:22 Wire removed. 11:06:22 Guide catheter removed. 11:06:33 EXOSEAL 6Fr (EX600) opened to sterile field. 11:06:41 Sheath removed intact; hemostasis achieved with Exoseal to the Right Femoral artery. 11:06:44 Procedure ended.(Physican Out) 11:06:51 Fluoroscopy time 11.20 minutes. 11:06:55 Fluoroscopy dose: 1304 mGy 11:06:55 Flurop Dose total: 1304 11:07:03 Dose Area Product 55252 mGy/cm. 11:07:07 Contrast amount:Isovue 300 124ml. 11:07:09 Maximum allowable dose exceeded? No. 11:07:10 Sharps counted by scrub and verified by R.N. 11:07:10 Insertion/operative site no bleeding no hematoma. 11:07:13 Post-op/insertion site Right Femoral artery dressed using a 4 x 4 and Tegaderm. 11:07:16 Post right femoral artery:stable, soft, clean and dry 11:08:32 Post Procedure Pulses reassessed and unchanged 11:08:34 Post-procedure physical assessment completed. ASA score P 2 - A patient with mild systemic disease as per Bc Hanna MD. 11:08:36 Post procedure rhythm: unchanged. 11:08:39 Estimated blood loss: 10 ml 11:08:40 Post procedure instruction explained to patient.Patient verbalizes understanding. 11:08:41 Patient needs reinforcement of post procedure teaching. 11:08:57 Post PCI Site: Teller Diag1 has 0% stenosis. 11:09:15 Procedure type changed to Cath procedure, Diagnostic procedure, LHC, LHC w/Coronaries w/Grafts, Sedation Charges, Moderate Sedation up to 30 minutes, PCI procedure, Coronary Atherectomy, Atherectomy w/PTCA Coronary Initial 11:09:40 Procedure and supply charges have been captured, reviewed, submitted and are correct. 11:09:42 Procedure Complication : No complications 11:09:45 Vital chart was stopped 11:09:45 See physician's report for complete and final results. 11:09:47 Report given to Pre/Post Procedure Room. 11:09:48 Patient transfered to Pre/Post Procedure Room with Stretcher. 11:09:49 Procedure ended. 11:09:49 Full Disclosure recording stopped 11:09:58 ACC-PCI Only Patient was given prescriptions, or instructed by Bc Hanna MD to start/continue the following medications upon discharge: Aspirin, Effient 11:09:59 End room use (Document Last) 11:18:16 Insurance Payor : Private health insurance, Medicare 11:18:32 Arrival Date: 02/05/2019 12:00:00 AM 11:18:33 Admit Source: Other 11:18:51 Patient Weight : 187.39 lbs 11:18:57 Patient Height : 68.9 inches Intervention Summary Intervention Notes Time ActionType Lesion and Equipment Action# Pressure Duration Attributes Used 10:56:13 Discard EMERGE OTW Balloon 1.5 x 15 balloon ([id number]) 11:00:08 Inflate 1st Diag EUPHORA 2.5 1 17 00:10 balloon x 20 Balloon ([id number]) 11:00:15 Reinflate 1st Diag EUPHORA 2.5 2 21 00:10 balloon x 20 Balloon ([id number]) 11:05:38 Reinflate 1st Diag EUPHORA 2.5 3 23 00:10 balloon x 20 Balloon ([id number]) 11:05:54 Reinflate 1st Diag EUPHORA 2.5 4 23 00:10 balloon x 20 Balloon ([id number]) Device Usage Item Name Manufacture Quantity Catalog Number Hospital Part Current Min imal Lot# / Charge Number Stock Stock Serial# Code ACIST Acist 1 28909 605061 204679 930300 20 Syringe Medical (06011) Systems Inc Bag Decanter Microtek 1 2001S 005033 19833 880405 5 (2001S) Medical Inc. Medline Cath Medline 1 [id number] 770156 03126 915287 5 Pack ([id number]) ACIST Hand Acist 1 13742 335582 166317 480004 5 Control Medical (91248) Systems Inc ACIST Acist 1 58430 443680 520119 681281 5 Manifold Medical (60341) Systems Inc DIAGNOSTIC Cardinal 1 ED8400 104720 32521 714837 30 MultipGuided Surgery Solutions 5Fr catheter set (SF3508) Tegaderm 4 x 3M 1 1626W 596200 122463 186537 5 4 (1626W) SHEATH 5FR Terumo 1 TWR985 538163 601473 195991 5 [place] (GRY929) EMERALD Cardinal 1 502-455 082987 606537 060098 5 Guide Wire [facility] (502455) MULTIPACK Cardinal 1 590728 5 Pigtail 5 Fr Health catheter MULTIPACK JL Cardinal 1 481052 5 4.0 5Fr Health catheter LASER ELCA Shanon 1 110-004 174796 275210 667400 5 0.9 Rx Clearbon atherectomy (857432) catheter (641503) CHOICE PT [place] 1 [id number] 759481 718420 679748 5 Extra Scientific Support 182cm wire (3694362F0) INFLATOR Merit 1 GY2430 827160 818647 115437 15 [facility] Medical BasixCompak (UZ4908) SHEATH 6FR Terumo 1 EIE792 423270 546569 186771 40 [place] (LFL316) GUIDE 6FR Cardinal 1 91271398 756989 972583 203599 3 XBLAD 4.0 Health catheter (38949955) MULTIPACK Cardinal 1 294622 5 3DRC 5Fr Health catheter DIAGNOSTIC Cardinal 1 641454R 020531 162950 021231 20 AR2 MOD 5 Fr Health catheter (213962X) GUIDE 6FR MB Medtronic 1 LA6MB1 424933 43154 549018 1 1 catheter (LA6MB1) WYATT Burleson Adams 1 [id number] 794179 644604 979201 5 300cm guide Vascular wire ([id number]) EMERGE OTW [place] 1 [id number] 084885 297172 402874 5 [id number] 1.5 x 15 Scientific balloon ([id number]) EUPHORA 2.5 Medtronic 1 [id number] 925977 442828 209174 5 [id number] x 20 Balloon ([id number]) EXOSEAL 6Fr Cardinal 1 EX600 246491 792040 445033 10 (EX600) Health Signature Audit [place] Stage Time Signature Unsigned Intra-Procedure 02/05/2019 [place] 11:22:27 AM RT(R) Signatures Performing Physician : Signature : Bc Hanna MD Date : Time : Nurse : Jose Eduardo Zavala Signature : RN Date : Time : Monitor : [place] RT Signature : Date : Time : [place] [address] [place] [address]
[~2019-02-05 08:09] MED LIST changes: +TOPROL XL25 MG PO
[2019-02-05] MEDS ORDERED: ISOSORBIDE MONO30 M1 PO (08:21)
[2019-02-05] MEDS ORDERED: RANEXA500 MG PO (08:21)
[2019-02-05 08:45] VITALS: BP 118/71; Ht 175.3 cm; Wt 85.0 kg
[2019-02-05 09:18] LABS: ANION GAP 14.7 mmol/L (8-16); CALCIUM 9.2 mg/dL (8.5-10.1); CARBON DIOXIDE 24.6 mmol/L (21.0-32.0); CHOL - HDL RATIO 5.2 ratio (2.3-4.9); CREATININE - SERUM 1.3 mg/dL (0.6-1.3); LDL-HDL RATIO 3.6 ratio (1.5-3.5); POTASSIUM - SERUM 4.3 mmol/L (3.5-5.1)
[2019-02-05 09:26] LABS: BASOPHILS 0.1 % (0-2); EOSINOPHILS 0.2 % (0-7); HEMATOCRIT 41.9 % (42.0-54.0); HEMOGLOBIN 14.4 g/dL (13.5-17.5); IMMATURE GRANULOCYTES 0.8 % (0-5); LYMPHOCYTES 11.3 % (15-50); MCH 29.8 pg (26.0-34.0); MCHC 34.4 g/dL (31.0-37.0); MCV 86.6 fL (80.0-100.0); MEAN PLATELET VOLUME 9.6 fL (7.4-10.4); MONOCYTES 6.1 % (2-11); NEUTROPHILS 81.5 % (40-80); PLATELET COUNT 258 10x3/uL (130-400); RBC 4.84 10x6/uL (4.20-6.10); WBC 8.9 10x3/uL (4.8-10.8)
--- NOTE | 2019-02-05 11:20 | NUR ---
PATIENT ARRIVED TO ROOM 7, PLACED ON CM. VSS. RIGHT GROIN DRESSING IS CDI, NO S/S OF BLEEDING OR HEMATOMA.
--- NOTE | 2019-02-05 11:35 | NUR ---
PATIENT INTERMITTENTLY RESTING, FAMILY PRESENT AT BEDSIDE. VSS ON 2L NC. RIGHT GROIN DRESSING IS CDI,NO S/S OF BLEEDING OR HEMATOMA. NO C/O PAIN, NUMBNESS, OR TINGLING. PATIENT GIVEN SMALL SIPS OF SPRITE, NO N/V.
--- NOTE | 2019-02-05 12:05 | NUR ---
PATIENT AWAKE, VSS ON 2L NC. RIGHT GROIN DRESSING IS CDI, NO S/S OF BLEEDING OR HEMATOMA. NO C/O PAIN, NUMBNESS, OR TINGLING. 2+ PEDAL PULSES.
--- NOTE | 2019-02-05 12:35 | NUR ---
PATIENT RESTING, VSS ON 2L NC. PRESENT AT BEDSIDE. RIGHT GROIN DRESSING IS CDI, NO S/S OF BLEEDING OR HEMATOMA. NO C/O PAIN, NUMBNESS, OR TINGLING. NO N/V.
--- NOTE | 2019-02-05 13:05 | NUR ---
PATIENT AWAKE, PRESENT AT BEDSIDE, BROUGHT PATIENT FISH FROM CAFETERIA. PATIENT TOLERATING PO FLUID AND FOOD, NO N/V. RIGHT GROIN DRESSING IS CDI, NO S/S OF BLEEDING OR HEMATOMA. NO C/O PAIN, NUMBNESS, OR TINGLING.
--- NOTE | 2019-02-05 13:35 | NUR ---
PATIENT AWAKE, VSS ON 2L NC. RIGHT GROIN DRESSING IS CDI, NO S/S OF BLEEDING OR HEMATOMA. NO C/O PAIN, NUMBNESS, OR TINGLING. NO N/V. WILL CONTINUE TO MONITOR.
--- NOTE | 2019-02-05 14:05 | NUR ---
PATIENT AWAKE, HEAD OF BED ELEVATED TO 30 DEGREES. RIGHT GROIN DRESSING IS CDI, NO S/S OF BLEEDING OR HEMATOMA. NO C/O PAIN, NUMBNESS, OR TINGLING. NO N/V.
--- NOTE | 2019-02-05 14:34 | NUR ---
PATIENT AWAKE, HEAD OF BED ELEVATED TO 90 DEGREES. RIGHT GROIN DRESSING IS CDI, NO S/S OF BLEEDING OR HEMATOMA. NO C/O PAIN, NUMBNESS, OR TINGLNG. VSS ON ROOM AIR.
--- NOTE | 2019-02-05 14:45 | NUR ---
RIGHT GROIN DRESSING IS CDI, NO S/S OF BLEEDING OR HEMATOMA. IV REMOVED. VSS ON ROOM AIR. PATIENT REMOVED FROM MONITOR TO GET DRESSED. WRITTEN AND VERBAL EDUCATION REGARDING DISCHARGE INSTRUCTIONS AND MEDICATION COMPLIANCE GIVEN TO PATIENT AND SPOUSE, BOTH VOICE UNDERSTANDING.
--- NOTE | 2019-02-05 15:05 | NUR ---
PATIENT TRANSPORTED VIA WHEELCHAIR TO CAR WITH SPOUSE DRIVING, ALL BELONGINGS WITH PATIENT.
--- NOTE | 2019-02-10 14:31 | OP ---
PATIENT NAME: ELDER PARKER MEDICAL RECORD: [id number] :48 LOCATION:D.CAT ADMISSION DATE: SURGEON: PEBBLES HILL MD DATE OF OPERATION: 02/05/2019 PROCEDURES: 1. Laser atherectomy, PTCA LAD diagonal. 2. PTCA RCA through patent vein graft. 3. Left heart catheterization. 4. Selective coronary angiography. 5. Vein graft angiography. 6. MARTINEZ angiography. INDICATION: Unstable angina. PROCEDURE IN DETAIL: After informed consent was obtained and after a detailed description of risks, benefits as well as alternative therapies, the patient elected to proceed with angiogram and angioplasty. The right femoral area was prepped and draped in normal sterile fashion. Right femoral artery was cannulated via modified Seldinger technique with placement of 6-Fijian sheath. All catheters exchanged through this sheath. FINDINGS: The left ventriculogram was performed in standard 30-degree BURCH view, reveals good cardiac wall motion, ejection fraction is 60%. SELECTIVE CORONARY ANGIOGRAPHY: 1. Left main is with no significant angiographic disease. 2. Left anterior descending has previously placed stents in the diagonal with a close graft at the diagonal. There is 95% in-stent restenosis. 3. Left circumflex has moderate irregularities, but no flow-limiting stenosis. 4. The LAD is totally occluded after the diagonal, but MARTINEZ to the LAD is widely patent. Distal LAD is widely patent. 5. Right coronary artery is totally occluded. 6. Vein graft to the right coronary artery is patent; however, there is 99.9% stenosis after the patent vein graft to the distal RCA. PTCA OF THE RCA: We were able to wire this with a Fielder wire. We were able to get the nose of a 1.5 balloon in the 95% stenosis; however, would not advance any further. We did balloon this to 21 atmospheres. There was no discernible change in this stenosis. We then turned our attention to the LAD diagonal. We ballooned this with a 2.5 balloon and laser atherectomy was performed with a 0.9 laser catheter, multiple passes were made at 80/40. OVERALL IMPRESSION: Successful percutaneous transluminal coronary angioplasty stent of the left anterior descending diagonal going from 95% in-stent restenosis to 0% residual stenosis. TRANSINT:[id number] Voice Confirmation ID: [id number] DOCUMENT ID: [id number] OPERATIVE REPORT [id number] ELDER PARKER, PEBBLES OLIVARES at 1431 CC: [id number] DICTATION DATE: 02/05/19 1112 POLE CLIMBER: 02/05/19 1150 DEP CLI 02/05/19 [place] [id number] [place] [address]
== END 2019-02-05 15:05 ==
LOC: D.CATH 08:09
PROVIDERS: ATTEND Internal Medicine Interventional Cardiology
DX: I25.110 Atherosclerotic heart disease of native coronary artery with unstable angina pectoris (principal); Z01.812 Encounter for preprocedural laboratory examination; I10 Essential (primary) hypertension; E78.5 Hyperlipidemia, unspecified; R06.00 Dyspnea, unspecified

== ENCOUNTER → 2019-05-06 18:38 | Outpatient (CLI) | payer MEDICARE, BC ==
[2019-02-05 08:45] VITALS: BMI 27.6
[~2019-05-06 18:38] MED LIST changes: +ISOSORBIDE MONO30 M1 PO; +RANEXA500 MG PO
[2019-05-06 19:33] LABS: CHOL - HDL RATIO 6.4 ratio (2.3-4.9); LDL-HDL RATIO 4.1 ratio (1.5-3.5)
== END | disposition home or self-care (01) ==
LOC: D.LABREF 18:38
PROVIDERS: ATTEND Internal Medicine Interventional Cardiology
DX: E78.5 Hyperlipidemia, unspecified (principal)

== ENCOUNTER 2019-07-26 07:07 | Outpatient (CLI) | payer MEDICARE, BC ==
[~2019-07-26] VITALS: Ht 175.3 cm; Wt 87.5 kg
--- NOTE | ~2019-07-26 | OP ---
PATIENT NAME: ELDER PARKER MEDICAL RECORD: [id number] :48 LOCATION:[facility] ADMISSION DATE: SURGEON: PEBBLES HILL MD DATE OF OPERATION: 07/26/2019 PROCEDURES: 1. PTCA and stent of left circumflex. 2. PTCA and stent of LAD diagonal. 3. PTCA of left main. 4. Left heart catheterization. 5. Selective coronary angiography. 6. Left ventriculogram. 7. Vein graft angiography. 8. MARTINEZ angiography. 9. IFR. INDICATIONS: Unstable angina and coronary artery disease. DESCRIPTION OF PROCEDURE: After informed consent was obtained and detailed explanation of risks, benefits as well as alternative therapies, the patient elected to proceed with angiogram and angioplasty. The right femoral area was prepped and draped in normal sterile fashion. Right femoral artery was cannulated via modified Seldinger technique with placement of 6-[place] sheath. All catheters exchanged through this sheath. FINDINGS: Left ventriculogram was performed in standard 30-degree BURCH view, reveals good cardiac wall motion, ejection fraction of 50%. SELECTIVE CORONARY ANGIOGRAPHY: 1. Left main has no significant angiographic disease. 2. Left anterior descending is closed. This leads into previously a non-grafted LAD diagonal. 3. MARTINEZ to the distal LAD is widely patent. 4. Left circumflex has 80% stenosis at the ostium. IFR was abnormal. 5. Right coronary artery is closed. 6. Vein graft to the right coronary artery is patent and unchanged from previous angiography. PTCA AND STENT OF THE LAD DIAGONAL: We were able to traverse the close LAD diagonal with a shinobi wire ballooning it with a 1.5 and 2.0 balloon, stenting it with 2.0 x 18 and 2.25 x 38, both Christian stents. Result was 0% residual stenosis. PTCA AND STENT OF THE LEFT CIRCUMFLEX: Left circumflex was addressed with a 3.0 x 12 [place] stent. This caused plaque shift into the left main. The left main was ballooned with the 2.0 balloon, taken to 23 atmospheres. Result was 0% residual throughout. OVERALL IMPRESSION: Successful PTCA and stent of the LAD diagonal going from 100% initial stenosis and PTCA and stent of the left circumflex going from 80% initial stenosis, both to 0% residual. TRANSINT:[id number] Voice Confirmation ID: [id number] DOCUMENT ID: [id number] OPERATIVE REPORT [id number] ELDER PARKER JEFFREY MD CC: [id number] DICTATION DATE: 07/26/19 1010 SENIOR AUDIT MANAGER: 07/26/19 1328 [facility] [address] [id number]
--- NOTE | ~2019-07-26 | HEMODYNAMI ---
PATIENT:ELDER PARKER MEDICAL RECORD: [id number] : 48 LOCATION:[facility] ADMISSION DATE: 07/26/19 Generatedon:07/26/201914:13 Patient name: ELDER PARKER Patient #: [id number] : 1950 Date of study: 07/26/2019 Page: Of Hemodynamic Procedure Report Patient Data Patient Demographics Procedure consent was obtained First Name: ELDER Gender: Male Last Name: ELENA : 1950 [facility] Initial: JOSÉ MIGUEL Age: 69 year(s) Patient #: [id number] Race: SSN: [id number] Additional ID: [id number] Contact details Address: [address] [place] [address] State: [place] City: [place] Zip code: [address] Past Medical History Allergies Allergen Reaction Date Comments Reported Shellfish 10/17/2014 Other allergy 05/29/2016 Shrimp Shellfish 11/29/2016 Other allergy 11/29/2016 Lipitor Other allergy 09/09/2017 SHRIMP,LIPITOR Other allergy 05/29/2018 Shrimp Other allergy 10/07/2018 SHRIMP Other allergy 02/05/2019 shrimp Other allergy 07/26/2019 shrimp Admission Admission Data Admission Date: 07/26/2019 Admission Time: 7:07 Arrival Date: 07/26/2019 Arrival Time: 0:00 Admit Source: Other Insurance Payor: Medicare HIC #: [id number] Height (in.): 69 BSA: 2.03 (m2) Height (cm.): 175.26 BMI: 28.5 (kg/m2) Weight (lbs.): 192.99 Weight (kg.): 87.54 Lab Results Lab Result Date: 07/26/2019 Lab Result Time: 0:00 Biochemistry Name Units Result Min Max BUN mg/dl 16 --(---*)-- 7 18 Creatinine mg/dl 1.2 --(---*)-- 0.6 1.3 eGFR ml/min 64.06118 *-(----)-- 90 120 NONAFRICAN CBC Name Units Result Min Max Hematocrit % 42.2 --(*---)-- 42 54 Hemoglobin g/dl 14 --(*---)-- 13.5 17.5 Procedure Procedure Types Cath Procedure Diagnostic Procedure LHC LH w/Coronaries w/Grafts FFR/IVUS FFR Initial Sedation Charges Moderate Sedation up to 30 minutes PCI Procedure Coronary Stent Coronary Stent Initial x2 Hemochron ACT Test Procedure Description Procedure Date Procedure Date: 07/26/2019 Procedure Start Time: 9:31 Procedure End Time: 10:16 Procedure Staff Name Function Javy Medina RN Nurse Bc Hanna MD Performing Physician Karlene Pritchard RT Monitor Kristina River RN Nurse Mikayla Julian RT Scrub Indication Angina Procedure Data Cath Procedure Fluoroscopy Diagnostic fluoroscopy Total fluoroscopy Time: 0 time: 0 min min Diagnostic fluoroscopy Total fluoroscopy dose: dose: 433.06 mGy 433.06 mGy Contrast Material Contrast Material Type Amount (ml) Isovue 300 141 Entry Location Entry Primary Successful Side Size Upsize Upsize Entry Closure Succes sful Closure Location (Fr) 1 (Fr) 2 (Fr) Remarks Device Remarks Femoral Right 5 Fr 6 Fr Exoseal artery Short Estimated blood loss: 10 ml Diagnostic catheters Device Type Used For End Catheter Placement MULTIPACK Pigtail 5 Fr Procedure catheter MULTIPACK JL 4.0 5Fr Left Coronary catheter Angiography MULTIPACK 3DRC 5Fr Right Coronary catheter Angiography Procedure Complications No complications Procedure Medications Medication Administration Route Dosage 0.9% NaCl I.V. 100 ml/hr Oxygen etCO2 Nasal cannula 2 l/min Lidocaine 2% added to field 20 Heparin Flush Bag added to field 2 bags (1000units/500ml NS) Versed I.V. 2 mg Fentanyl I.V. 50 mcg Versed I.V. 2 mg Fentanyl I.V. 50 mcg Heparin Bolus I.V. 4000 units Fentanyl I.V. 50 mcg Fentanyl I.V. 50 mcg Hemodynamics Rest BSA: 2.03 (m2) HGB: 14 (g/dl) O2 Consumption: Estimated: 234.38 (ml/min) O2 Cons umption indexed: Estimated:115.46 (ml/min/m) Heart Rate: 69 (bpm) Snapshots Pre Cath Intra NCS Post Cath Vital Signs Time Heart Resp SPO2 etCO2 NIBP (mmHg) Rhythm Pain Sedation Rate (ipm) (%) (mmHg) Status Level (bpm) 9:14:21 71 19 97 25.2 147/76(113) NSR 0 (11) 10(A) , No pain 9:18:39 67 18 97 28.2 139/83(109) NSR 0 (11) 10(A) , No pain 9:22:57 68 14 96 31.8 142/73(110) NSR 0 (11) 10(A) , No pain 9:27:15 67 12 97 32.6 121/72(98) NSR 0 (11) 10(A) , No pain 9:31:27 71 12 98 34.8 135/71(96) NSR 0 (11) 10(A) , No pain 9:35:46 69 10 97 31.1 120/64(83) NSR 0 (11) 10(A) , No pain 9:39:55 71 10 98 12.6 121/71(92) NSR 0 (11) 10(A) , No pain 9:44:05 73 11 98 33.3 118/68(96) NSR 0 (11) 10(A) , No pain 9:48:13 74 11 97 34.1 122/73(104) NSR 0 (11) 10(A) , No pain 9:52:23 74 11 98 34 128/70(90) NSR 0 (11) 10(A) , No pain 9:56:35 75 11 98 32.5 122/70(98) NSR 0 (11) 10(A) , No pain 10:00:43 76 14 97 34.8 134/79(98) NSR 0 (11) 10(A) , No pain 10:04:57 75 10 97 34.1 123/75(103) NSR 0 (11) 10(A) , No pain 10:09:05 77 13 98 34.1 133/81(107) NSR 0 (11) 10(A) , No pain 10:13:04 31.1 No Cuff NSR 0 (11) 10(A) , No pain Medications Time Medication Route Dose Verified Delivered Reason Notes Effectiveness by by 9:13:19 0.9% NaCl I.V. 100 Bc Kristina used for ml/hr Cyndi River manager nursing 9:13:26 Oxygen etCO2 2 Bc Kristina used for Nasal l/min Cyndi River procedure cannula RN 9:13:33 Lidocaine 2% added 20ml Bc Bc for local to vial Cyndi Hanna MD anesthetic field 9:13:37 Heparin Flush added 2 Bc Cb used for Bag to bags Cyndi Hanna MD procedure (1000units/500ml field NS) 9:30:05 Versed I.V. 2 mg Bc Kristina for sedation Cyndi River RN 9:30:17 Fentanyl I.V. 50 Bc Kristina for sedation mcg Cyndi River RN 9:35:41 Versed I.V. 2 mg Bc Kristina for sedation Cyndi River RN 9:35:48 Fentanyl I.V. 50 Bc Kristina for sedation mcg Cyndi River RN 9:40:34 Heparin Bolus I.V. 4000 Bc Kristina for verifi ed units Cyndi River anticoagulation with Dr. INGRID Hanna 9:43:54 Fentanyl I.V. 50 Bc Kristina for sedation verifi ed mcg Cyndi River with Dr. INGRID Hanna 9:49:42 Fentanyl I.V. 50 Bc Kristina for sedation mcg Cyndi River vehicle glass technician Log Time Note 8:53:22 Informed consent obtained and on chart 8:55:58 Diagnostic Cath Status : Elective 8:56:18 Indication : Angina 8:56:21 Admit Source: Other 8:56:26 Procedure Status Elective Heart Cath (OP). 8:56:28 Time tracking: Regular hours (M-F 7:00 - 5:00) 8:56:33 Plan of Care:Hemodynamics will remain stable., Cardiac rhythm will remain stable., Comfort level will be maintained., Respiratory function will remain adequate., Patient/ family verbilizes understanding of procedure., Procedure tolerated without complication., Recovers from procedure without complications.. 8:56:46 H&P Date Dictated: 07/22/2019 Within 30 days and on chart.. 8:56:55 Patient allergic to Other allergyshrimp 8:57:02 Risk of Mortality: 0.1 8:57:04 Risk of blood transfusion: 0.1 8:57:08 Risk of CLARE: 0.4 8:57:12 Lab results completed and on chart. 8:57:36 Lab Result : Hemoglobin 14 g/dl 8:57:36 Lab Result : Hematocrit 42.2 % 8:57:36 Lab Result : eGFR NONAFRICAN 64.84801 ml/min 8:57:36 Lab Result : BUN 16 mg/dl 8:57:36 Lab Result : Creatinine 1.2 mg/dl 8:57:45 Arrival Date: 07/26/2019 12:00:00 AM 8:57:51 Insurance Payor : Medicare 8:58:09 Patient Height : 69 inches 8:58:18 Patient Weight : 192.99 lbs 9:00:45 Kristina River RN sent for patient. Start room use. 9:00:47 Patient NPO since Midnight. 9:00:57 Stress Test: no; N/A ? 9:00:59 Sharps counted by scrub and verified by R.N. 9:00:59 Alarms reviewed by R. N. 9:06:57 Patient received from Pre/Post Procedure Room to CCL 3 Alert and oriented. Tansferred to table in Supine position. 9:07:04 Correct patient and procedure confirmed by team. 9:07:04 Warm blankets applied, and gil hugger turned on for patient comfort. 9:07:05 ECG and BP/O2 sat monitors applied to patient. 9:07:09 Pre-op teaching completed and patient verbalized understanding. 9:07:09 Pre-procedure instructions explained to patient. 9:07:10 Family in waiting room. 9:10:59 Is the patient allergic to Iodine/contrast media? Yes. 9:11:01 Was the patient premedicated? Yes 9:11:02 Is patient on blood thinner?Yes 9:11:05 ACC The patient was administered the following blood thiners within the last 24 hours: ACCEffient 9:11:08 Patient diabetic? No. 9:11:10 If diabetic: On Metformin? N/A 9:11:12 ----Pre-sedation anethsthesia assessment.---- 9:11:15 Previous problem with sedation/anesthesia? No ? 9:11:21 Patient pain scale 0/10 ?. 9:11:25 Pre procedure: right dorsailis pedis pulse 2+ Normal; easily identifiable; not easily obliterated 9:11:33 IV patent on arrival in left antecubital with 0.9% NaCl at [facility]. 9::37 Right groin area was prepped with chlora-prep and draped in sterile fashion 9:11:43 Snore? Yes 9:11:45 Sleep apnea? No 9:11:47 Opens mouth fully? No 9:11:49 Sticks out tongue? No 9:11:51 Airway obstruction? No ? 9:11:53 Dentures? No ? 9:13:09 Vital chart was started 9:13:19 0.9% NaCl 100 ml/hr I.V. was administered by Kristina River RN; used for procedure; Verbal order read back and verified. 9:13: Oxygen 2 l/min etCO2 Nasal cannula was administered by Kristina River RN; used for procedure; Verbal order read back and verified. 9:13:33 Lidocaine 2% 20ml vial added to field was administered by Bc Hanna MD; for local anesthetic; Verbal order read back and verified. 9:13:37 Heparin Flush Bag (1000units/500ml NS) 2 bags added to field was administered by Bc Hanna MD; used for procedure; Verbal order read back and verified. 9:15:20 Use device set Femoral Dx 9:15:21 ACIST Syringe (49836) opened to sterile field. 9:15:22 Medline Cath Pack ([id number]) opened to sterile field. 9:15:22 Bag Decanter (2002S) opened to sterile field. 9:15:23 ACIST Hand Control (27924) opened to sterile field. 9:15:24 ACIST Manifold (33545) opened to sterile field. 9:15:25 DIAGNOSTIC Multipack 5Fr catheter set ([id number]) opened to sterile field. 9:15:26 SHEATH 5FR [place] (RYQ397) opened to sterile field. 9:15:27 EMERALD Guide Wire (557-229) opened to sterile field. 9:16:33 Baseline sample Acquired. 9:16:37 Rhythm: sinus rhythm 9:16:38 Full Disclosure recording started 9:25:54 Physician arrived 9:25:55 --------ALL STOP TIME OUT------ 9:25:56 Final Timeout: patient, procedure, and site verified with staff and physician. All members of the team are in agreement. 9:26:01 Right groin site verified by team. 9:26:06 Fire Safety Assessment: A--An alcohol-based skin anteseptic being used preoperatively., C--Open oxygen or nitrous oxide is being used., D--An ESU, laser, or fiber-optic light is being used. 9:26:12 Physical assessment completed. ASA score P 2 - A patient with mild systemic disease as per Bc Hanna MD. 9:26:18 2) 60-89 Mildly reduced kidney function, and other findings (as for stage 1) point to kidney disease. 9:26:24 Maximum allowable contrast dose (3.7 X eGFR X 0.75)178 ml. 9:26:30 Sedation plan: IV Moderate Sedation Medication:Versed, Fentanyl 9:29:11 Zero performed for pressure channel P1 9:30:05 Versed 2 mg I.V. was administered by Kristina River RN; for sedation; Verbal order read back and verified. 9:30:17 Fentanyl 50 mcg I.V. was administered by Kristina River RN; for sedation; Verbal order read back and verified. 9:30:59 Procedure started. 9:31:05 Local anesthetic to right femoral artery with Lidocaine 2% by Bc Hanna MD.INITIAL ACCESS ONLY 9:32:17 A 5 Fr sheath was inserted into the Right Femoral artery 9:33:36 A MULTIPACK Pigtail 5 Fr catheter was advanced over the wire and used for Procedure. 9:34:16 LV gram done using BURCH 9:34:25 EF : 50 % 9:34:29 Injector settings: Ml/sec: 5, Volume: 15, 9:34:31 Catheter removed. 9:34:37 A MULTIPACK JL 4.0 5Fr catheter was advanced over the wire and used for Left Coronary Angiography. 9:34:45 Injector settings: Ml/sec: 3, Volume: 6, 9:35:05 LCA angiography performed. 9:35:41 Versed 2 mg I.V. was administered by Kristina River RN; for sedation; Verbal order read back and verified. 9:35:48 Fentanyl 50 mcg I.V. was administered by Kristina Perico RN; for sedation; Verbal order read back and verified. 9:36:15 Catheter removed. 9:36:22 A MULTIPACK 3DRC 5Fr catheter was advanced over the wire and used for Right Coronary Angiography. 9:37:30 MARTINEZ to LAD angiography performed. 9:38:02 INFLATOR Merit BasixCompak (BI8176) opened to sterile field. 9:38:04 SHEATH 6FR [place] (WII053) opened to sterile field. 9:38:05 [place] Verrata Plus pressure wire (24420E) opened to sterile field. 9:38:34 GUIDE 6FR XB 4.0 catheter ([id number]) opened to sterile field. 9:38:57 SVG to RCA angiography performed. 9:39:10 Catheter removed. 9:39:22 Proceeding to intervention. 9:39:40 Sheath upsized to a 6 Fr Short. 9:39:52 6 Fr XB4 guide catheter was inserted over the wire 9:39:59 FFR/IFR wire advanced. 9:40:34 Heparin Bolus 4000 units I.V. was administered by Kristina River RN; for anticoagulation; verified with Dr. Hanna Verbal order read back and verified. 9:40:46 Wire advanced across lesion. 9:41:29 mCirc lesion measured at 0.74 with IFR 9:41:50 Pre PCI Site: [place] mCirc has 80% stenosis. 9:41:55 ACC Pre-intervention ANIL Flow is 3. 9:43:24 SHINOBI 300cm 0.014 guide wire ([id number]) opened to sterile field. 9:43:54 Fentanyl 50 mcg I.V. was administered by Kristina River RN; for sedation; verified with Dr. Hanna Verbal order read back and verified. 9:44:36 SHINOBI 300 wire advanced DOWN THE LAD. 9:44:59 Pre PCI Site: [place] mLAD has 100% stenosis. 9:46:23 Inflate balloon Inflation number: 1 A EMERGE OTW 2.0 x 15 balloon ([id number]) was prepped and advanced across the Mid LAD , then inflated to 17 ELIAS for 0:00 (min:sec) . 9:46:34 Inflation number: 2 The EMERGE OTW 2.0 x 15 balloon ([id number]) was reinflated across the Mid LAD , to 17 ELIAS for 0:00 (min:sec) . 9:46:44 Inflation number: 3 The EMERGE OTW 2.0 x 15 balloon ([id number]) was reinflated across the Mid LAD , to 17 ELIAS for 0:00 (min:sec) . 9:46:53 Inflation number: 4 The EMERGE OTW 2.0 x 15 balloon ([id number]) was reinflated across the Mid LAD , to 17 ELIAS for 0:00 (min:sec) . 9:47:29 Balloon removed over the wire. 9:49:00 Place stent Inflation Number: 5 A REINA RX 2.25 x 38 stent ([id number]) was prepped and advanced across the Mid LAD . The stent was deployed at 15 ELIAS for 0:00 (min:sec) . 9:49:08 Inflation number: 6 The stent balloon was then re-inflated across the Mid LAD to 21 ELIAS for 0:00 (min:sec) . 9:49:42 Fentanyl 50 mcg I.V. was administered by Kristina River RN; for sedation; Verbal order read back and verified. 9:49:57 Stent catheter was removed intact over wire. 9:52:44 The REINA RX 2.0 x 22 stent ([id number]) was advanced then removed because of failure to cross lesion 9:53:30 CHOICE PT Extra Support 182cm wire ([id number]) opened to sterile field. 9:54:36 THE SHINOBI WIRE IS REMOVE. 9:54:58 SHORT PT ADVANCED wire advanced. 9:55:20 Inflate balloon Inflation number: 7 A Mozec Rx 2.0 x 15 balloon was prepped and advanced across the Mid LAD , then inflated to 21 ELIAS for 0:00 (min:sec) . 9:55:24 Inflation number: 8 The Mozec Rx 2.0 x 15 balloon was reinflated across the Mid LAD , to 21 ELIAS for 0:00 (min:sec) . 9:55:30 Inflation number: 9 The Mozec Rx 2.0 x 15 balloon was reinflated across the Mid LAD , to 21 ELIAS for 0:00 (min:sec) . 9:55:36 Inflation number: 10 The Mozec Rx 2.0 x 15 balloon was reinflated across the Mid LAD , to 5 ELIAS for 0:00 (min:sec) . 9:56:07 IFR WIRE IS REMOVED FROM CIRX. 9:56:36 Inflation number: 11 The Mozec Rx 2.0 x 15 balloon was reinflated across the Mid LAD , to 5 ELIAS for 0:00 (min:sec) . 9:57:23 Inflation number: 12 The Mozec Rx 2.0 x 15 balloon was reinflated across the LEFT MAIN , to 23 ELIAS for 0:00 (min:sec) . 9:57:47 Balloon removed over the wire. 9:57:49 Wire removed. 9:57:58 CHOICE PT Extra Support 182cm wire ([id number]) opened to sterile field. 10:00:04 A NEW PT CHOICE WIRE IS DIRECTED DOWN THE CIRC. 10:01:24 Place stent Inflation Number: 1 A REINA RX 3.0 x 12 stent ([id number]) was prepped and advanced across the Mid CX . The stent was deployed at 13 ELIAS for 0:00 (min:sec) . 10:01:47 ACC Post-intervention ANIL Flow is 3. FOR BOTH LESIONS. 10:02:16 EXOSEAL 6Fr (EX600) opened to sterile field. 10:02:34 Stent catheter was removed intact over wire. 10:02:35 Guide catheter removed. 10:02:35 Wire removed. 10:02:57 Sheath removed intact; hemostasis achieved with Exoseal to the Right Femoral artery. 10:03:21 Procedure ended.(Physican Out) 10:04:02 Contrast amount:Isovue 300 141ml. 10:05:48 ACT drawn and resulted at 294 seconds. (normal therapeutic range 180-240 seconds). 10:10:37 Fluoroscopy time 00.00 minutes. 10:10:50 Fluoroscopy dose: 433.06 mGy 10:10:50 Flurop Dose total: 433.06 10:11:01 Dose Area Product 2892.52 mGy/cm. 10:11:05 Maximum allowable dose exceeded? No. 10:11:07 Sharps counted by scrub and verified by R.N. 10:11:15 Insertion/operative site no bleeding no hematoma. 10:11:21 Post-op/insertion site Right Femoral artery dressed using a 4 x 4 and Tegaderm. 10:11:31 Post right femoral artery:stable 10:11:33 Post Procedure Pulses reassessed and unchanged 10:11:38 Post-procedure physical assessment completed. ASA score P 2 - A patient with mild systemic disease as per Bc Hanna MD. 10:11:41 Post procedure rhythm: unchanged. 10:11:45 Estimated blood loss: 10 ml 10:11:47 Post procedure instruction explained to patient.Patient verbalizes understanding. 10:11:49 Patient needs reinforcement of post procedure teaching. 10:12:15 Post PCI Site: [place] mLAD has 0% stenosis. 10:12:24 Post PCI Site: [place] mCirc has 0% stenosis. 10:14:25 Procedure type changed to Cath procedure, Diagnostic procedure, LHC, LHC w/Coronaries w/Grafts, FFR/IVUS, FFR Initial, Sedation Charges, Moderate Sedation up to 30 minutes, PCI procedure, Coronary Stent, Coronary Stent Initial x2, Hemochron ACT Test 10:14:29 Procedure and supply charges have been captured, reviewed, submitted and are correct. 10:15:48 Procedure Complication : No complications 10:15:51 Vital chart was stopped 10:15:54 [facility] Findings: MVD- PCI performed (see procedure note) 10:15:57 Operative report dictated upon procedure completion. 10:15:58 See physician's report for complete and final results. 10:16:03 Report given to Pre/Post Procedure Room. 10:16:08 Patient transfered to Pre/Post Procedure Room with Stretcher. 10:16:11 Full Disclosure recording stopped 10:16:11 Procedure ended. 10:16:20 ACC-PCI Only Patient was given prescriptions, or instructed by Bc Hanna MD to start/continue the following medications upon discharge: Plavix 10:16:21 End room use (Document Last) Intervention Summary Intervention Notes Time ActionType Lesion and Equipment Used Action# Pressure Duration Attributes 9:46:23 Inflate Mid LAD EMERGE OTW 2.0 1 17 00:00 balloon x 15 balloon ([id number]) 9:46:34 Reinflate Mid LAD EMERGE OTW 2.0 2 17 00:00 balloon x 15 balloon ([id number]) 9:46:44 Reinflate Mid LAD EMERGE OTW 2.0 3 17 00:00 balloon x 15 balloon ([id number]) 9:46:53 Reinflate Mid LAD EMERGE OTW 2.0 4 17 00:00 balloon x 15 balloon ([id number]) 9:49:00 Place stent Mid LAD REINA RX 2.25 x 5 15 00:00 38 stent ([id number]) 9:49:08 Reinflate Mid LAD REINA RX 2.25 x 6 21 00:00 stent 38 stent balloon ([id number]) 9:52:44 Discard REINA RX 2.0 x Stent 22 stent ([id number]) 9:55:20 Inflate Mid LAD Mozec Rx 2.0 x 7 21 00:00 balloon 15 balloon 9:55:24 Reinflate Mid LAD Mozec Rx 2.0 x 8 21 00:00 balloon 15 balloon 9:55:30 Reinflate Mid LAD Mozec Rx 2.0 x 9 21 00:00 balloon 15 balloon 9:55:36 Reinflate Mid LAD Mozec Rx 2.0 x 10 5 00:00 balloon 15 balloon 9:56:36 Reinflate Mid LAD Mozec Rx 2.0 x 11 5 00:00 balloon 15 balloon 9:57:23 Reinflate Mid LAD Mozec Rx 2.0 x 12 23 00:00 balloon 15 balloon 10:01:24 Place stent Mid CX REINA RX 3.0 x 1 13 00:00 12 stent ([id number]) Device Usage Item Name Manufacture Quantity Catalog Number Hospital Part Current Minimal Lot# / Charge Number Stock Stock Serial# Code ACIST Syringe Acist 1 77463 672111 685678 883333 20 (59981) Medical Systems Inc Bag Decanter Microtek 1 306476 12141 774542 5 () Medical Inc. Medline Cath Medline 1 [id number] 350658 20981 558235 5 Pack ([id number]) ACIST Hand Acist 1 08802 737436 866066 228376 5 Control Medical (38529) Systems Inc ACIST Manifold Acist 1 18487 308911 001733 488250 5 (81067) Medical Systems Inc DIAGNOSTIC Cardinal 1 [id number] 294899 89740 749479 30 Multipack 5Fr Health catheter set ([id number]) SHEATH 5FR Terumo 1 [id number] 954340 963051 690229 5 [place] (CUD508) EMERALD Guide Cardinal 1 502-455 796005 587387 959142 5 Wire (502-455) Health MULTIPACK Cardinal 1 493936 5 Pigtail 5 Fr Health catheter MULTIPACK JL Cardinal 1 137134 5 4.0 5Fr Health catheter MULTIPACK 3DRC Cardinal 1 642724 5 5Fr catheter Health INFLATOR Merit Merit 1 GL2305 180800 240122 274909 15 BasXecced Medical ([id number]) SHEATH 6FR Terumo 1 [id number] 886757 134042 612351 40 [place] (FVS708) [place] 1 46968L 400083 459354827 664478 5 Verrata Plus pressure wire (81579B) GUIDE 6FR XB Cardinal 1 [id number] 148710 240837 330095 2 4.0 catheter Health (04371596) SHINOBI 300cm Cardinal 1 [id number] 370680 848145 032037 1 0.014 guide Health wire (355175X) EMERGE OTW 2.0 [place] 1 [id number] 052782 006300 396201 5 [id number] x 15 balloon Scientific ([id number]) REINA RX 2.25 x Medtronic 1 [id number] 545187 3294991 474209 5 [id number] 38 stent ([id number]) REINA RX 2.0 x Medtronic 1 [id number] 874670 1849422 763919 5 [id number] 22 stent ([id number]) CHOICE PT [place] 2 [id number] 828151 264095 778802 5 Extra Support Scientific 182cm wire ([id number]) Mozec Rx 2.0 x Cardinal 1 [id number] 952240 71835 425936 5 [id number] 15 balloon Health REINA RX 3.0 x Medtronic 1 [id number] 920647 7983326 216738 5 [id number] 12 stent ([id number]) EXOSEAL 6Fr Cardinal 1 EX600 475047 049212 892116 10 (EX600) Health Signature Audit [place] Stage Time Signature Unsigned Intra-Procedure 07/26/2019 Karlene 10:16:41 AM Macho RT(R) (CV) Intra-Procedure 07/26/2019 Javy Medina RN 10:17:43 AM Intra-Procedure 07/26/2019 Bc River RN 10:18:05 AM 07/26/2019 2:11:26 PM Intra-Procedure 07/26/2019 Kristina River 2:12:19 PM RN Intra-Procedure 07/26/2019 Bc Hanna 2:12:58 PM MD Signatures Nurse : Javy Medina RN Signature : Date : Time : Performing Physician : Bc Signature : Cyndi MD Date : Time : [facility] Signature : Date : Time : Nurse : Kristina River RN Signature : Date : Time : [address] [place] [address]
[2019-07-26] MEDS ORDERED: LIPITOR40 MG PO (07:33)
[2019-07-26] MEDS ORDERED: TOPROL XL25 MG PO (07:34)
[2019-07-26] MEDS ORDERED: EFFIENT10 MG PO (07:34)
[2019-07-26] MEDS ORDERED: REPATHA SY140 MG/1 M SC (07:36)
[2019-07-26 07:46] VITALS: BP 127/66; Ht 175.3 cm; Wt 87.5 kg
[2019-07-26 08:01] LABS: BASOPHILS 0.5 % (0-2); EOSINOPHILS 3.8 % (0-7); HEMATOCRIT 42.2 % (42.0-54.0); IMMATURE GRANULOCYTES 2.4 % (0-5); LYMPHOCYTES 18.2 % (15-50); MCH 29.7 pg (26.0-34.0); MCHC 33.2 g/dL (31.0-37.0); MCV 89.6 fL (80.0-100.0); MEAN PLATELET VOLUME 9.2 fL (7.4-10.4); MONOCYTES 9.7 % (2-11); NEUTROPHILS 65.4 % (40-80); PLATELET COUNT 212 10x3/uL (130-400); RBC 4.71 10x6/uL (4.20-6.10); RDW 13.6 % (11.5-14.5); WBC 6.6 10x3/uL (4.8-10.8)
[2019-07-26 08:14] LABS: ANION GAP 11.6 mmol/L (8-16); CALCIUM 8.6 mg/dL (8.5-10.1); CARBON DIOXIDE 25.3 mmol/L (21.0-32.0); CREATININE - SERUM 1.2 mg/dL (0.6-1.3); LDL-HDL RATIO 0.3 ratio (1.5-3.5); POTASSIUM - SERUM 3.9 mmol/L (3.5-5.1)
--- NOTE | 2019-07-26 10:17 | NUR ---
PT ARRIVED BY STRETCHER. PLACED ON MONITORS. ASSESSMENT COMPLETED. VSS. FAMILY AT BEDSIDE.
--- NOTE | 2019-07-26 10:32 | NUR ---
RIGHT GROIN DRESSING C/D/I. NO S/S OF HEMATOMA NOTED. CALL LIGHT WITHIN REACH. VSS. NO NEEDS AT THIS TIME. RESTING COMFORTABLY. FAMILY AT BEDSIDE.
--- NOTE | 2019-07-26 11:00 | NUR ---
PT RESTING COMFORTABLY. DENIES NAUSEA/PAIN AT THIS TIME. FAMILY AT BEDSIDE. VSS. RIGHT GROIN DRESSING C/D/I. NO S/S OF HEMATOMA NOTED. RIGHT LEG WARM TO TOUCH. PPP.
--- NOTE | 2019-07-26 11:30 | NUR ---
PT RESTING COMFORTABLY. VSS. RIGHT GROIN DRESSING C/D/I. NO S/S OF HEMATOMA NOTED. FAMILY AT BEDSIDE. NO NEEDS AT THIS TIME.
--- NOTE | 2019-07-26 12:00 | NUR ---
PT RESTING COMFORTABLY. VSS. RIGHT GROIN DRESSING C/D/I. NO S/S OF HEMATOMA NOTED. CALL LIGHT WITHIN REACH. FAMILY AT BEDSIDE.
--- NOTE | 2019-07-26 12:30 | NUR ---
VSS. RIGHT GROIN DRESSING C/D/I. NO S/S OF HEMATOMA NOTED. CALL LIGHT WITHIN REACH.
--- NOTE | 2019-07-26 13:00 | NUR ---
RIGHT GROIN DRESSING C/D/I. NO S/S OF HEMATOMA NOTED. HEAD OF BED INC TO 30 DEGREES. TOLERATED WELL. VSS. SET UP WITH SANDWICH TRAY AND DRINK. FAMILY AT BEDSIDE TO ASSIST.
--- NOTE | 2019-07-26 13:30 | NUR ---
RIGHT GROIN DRESSING C/D/I. NO S/S OF HEMATOMA NOTED. CALL LIGHT WITHIN REACH. VSS. PIV D/C'D WITH CATH TIP INTACT. TOLERATED WELL. PT INSTRUCTED TO GET UP AND DRESSED. FAMILY AT BEDSIDE TO ASSIST. PT VOIDED APPROX 400cc OF URINE IN URINAL WITHOUT DIFFICULTY.
--- NOTE | 2019-07-26 13:45 | NUR ---
PT DRESSED. RIGHT GROIN DRESSING C/D/I. NO S/S OF HEMATOMA NOTED. DISCUSSED DISCHARGE INSTRUCTIONS WITH PT AND PT'S FAMILY. THEY VOICED UNDERSTANDING.
--- NOTE | 2019-07-26 14:00 | NUR ---
PT TAKEN OUT TO VEHICLE BY WHEELCHAIR. NO S/S OF DISTRESS NOTED. ALL BELONGINGS AND PAPERWORK IN HAND.
== END 2019-07-26 14:00 | disposition home or self-care (01) ==
LOC: D.CATH 07:07
PROVIDERS: ATTEND Internal Medicine Interventional Cardiology
DX: I25.110 Atherosclerotic heart disease of native coronary artery with unstable angina pectoris (principal); E78.00 Pure hypercholesterolemia, unspecified; I10 Essential (primary) hypertension; R06.09 Other forms of dyspnea; E78.5 Hyperlipidemia, unspecified
CPT/HCPCS: 92920; 93459; 93571; C9600 ×2

== ENCOUNTER → 2019-11-09 20:50 | Outpatient (CLI) | payer MEDICARE, BC ==
[2019-07-26 07:46] VITALS: BMI 28.5
[~2019-11-09 20:50] MED LIST changes: +REPATHA SY140 MG/1 M SC
[2019-11-09 21:11] LABS: CHOL - HDL RATIO 2.5 ratio (2.3-4.9); LDL-HDL RATIO 0.8 ratio (1.5-3.5)
== END | disposition home or self-care (01) ==
LOC: D.LABREF 20:50
PROVIDERS: ATTEND Nurse Practitioner Adult Health
DX: E78.5 Hyperlipidemia, unspecified (principal)